=== PATIENT | male | born 1940 | race Caucasian/White ===

== ENCOUNTER 2017-10-04 18:10 | Inpatient (IN) | payer MEDICARE ==
[~2017-10-04] VITALS: Ht 175.3 cm; Wt 127.5 kg
[2017-10-04] MEDS ORDERED: Sodium Chloride 500ML 500 ML IV ONE ×2 (18:29→20:15)
[2017-10-04] MEDS ORDERED: Metoprolol 5mg/5ml Inj IVP ONE ×2 (18:30→20:00)
[2017-10-04] MEDS ORDERED: Morphine Sulfate 2mg/ml Inj(IV/IM USE ONLY) IVP ONE (18:30)
[2017-10-04 18:49] VITALS: BP 91/60
[2017-10-04 19:34] LABS: BASOPHILS % (AUTO) 1.4 % (0.0-2.0); EOSINOPHILS % (AUTO) 0.1 % (0.0-3.0); HEMATOCRIT 46.4 % (42.0-52.0); HEMOGLOBIN 15.3 G/DL (14.2-18.0); LYMPHOCYTES % (AUTO) 7.7 % (20.0-45.0); MEAN CORPUSCULAR VOLUME 92 FL (80-99); MONOCYTES % (AUTO) 6.8 % (1.0-10.0); NEUTROPHILS % (AUTO) 84.1 % (45.0-75.0); PLATELET COUNT 217 K/UL (150-450); RED BLOOD COUNT 5.03 M/UL (4.70-6.10); RED CELL DISTRIBUTION WIDTH 13.2 % (11.6-14.8); WHITE BLOOD COUNT 15.7 K/UL (4.8-10.8)
[2017-10-04 19:48] LABS: ANION GAP 12 mmol/L (5-15); BLOOD UREA NITROGEN 52 mg/dL (7-18); CALCIUM 9.8 MG/DL (8.5-10.1); CARBON DIOXIDE 23 MMOL/L (21-32); CHLORIDE 101 MMOL/L (98-107); CREATININE 1.4 MG/DL (0.55-1.30); POTASSIUM 5.3 MMOL/L (3.5-5.1); SODIUM 136 MMOL/L (136-145)
[2017-10-04 19:49] LABS: APPEARANCE,URINE SLIGHTLY CLOUDY; BILIRUBIN, URINE NEGATIVE (NEGATIVE); GLUCOSE, URINE (UA) NEGATIVE (NEGATIVE); KETONES,URINE 3+ (NEGATIVE); LEUKOCYTE ESTERASE ,URINE 1+ (NEGATIVE); NITRITE,URINE NEGATIVE (NEGATIVE); PH,URINE 5 (4.5-8.0); PROTEIN,URINE 2+ (NEGATIVE); UROBILINOGEN,URINE 1 MG/DL (0.0-1.0)
[2017-10-04 19:50] VITALS: BP 106/81
[2017-10-04 19:50] LABS: COLOR,URINE YELLOW
[2017-10-04] MEDS ORDERED: Morphine Sulfate 4mg/ml Inj (IV USE ONLY) IVP ONE (20:00)
[2017-10-04 20:02] LABS: ALANINE AMINOTRANSFERASE 26 U/L (12-78); ALKALINE PHOSPHATASE 322 U/L (46-116); ASPARTATE AMINO TRANSFERASE 47 U/L (15-37); BILIRUBIN,TOTAL 0.9 MG/DL (0.2-1.0); CKMB 0.6 NG/ML (0.0-3.6); CREATINE KINASE 31 U/L (26-308)
[2017-10-04 20:26] LABS: ALBUMIN 2.4 G/DL (3.4-5.0)
--- NOTE | 2017-10-04 20:46 | Emergency Room Report ---
History of Present Illness General Chief Complaint: Dyspnea/Respdistress Source: EMS Present Illness HPI 77-year-old male presents to ED with shortness of breath. Started today at custodial facility. Upon arrival patient satting 98% on room air. Denies any chest pain. Patient screaming in pain. States he has history of chronic back pain. States pain medications at facility are not helping. Denies any recent fall or trauma. Pain is an 8 out of 10, sharp, nonradiating. Denies fevers or chills. No other aggravating or relieving factors. Denies any other associated symptoms Allergies: Coded Allergies: PENICILLINS (Verified Allergy, Unknown, 10/04/17) Patient History Past Medical History: none Past Surgical History: none Pertinent Family History: none Social History: Denies: smoking, alcohol use, drug use Immunizations: UTD Reviewed Nursing Documentation: PMH: Agreed; PSxH: Agreed Nursing Documentation-PM Past Medical History: No History, Except For Hx Cardiac Problems: Yes - CHF. Prostethic heart valve. Afib Hx Hypertension: Yes - Dysphagia Review of Systems All Other Systems: negative except mentioned in HPI Physical Exam Vital Signs Date Time Temp Pulse Resp B/P (MAP) Pulse Ox O2 Delivery O2 Flow Rate FiO2 10/04/17 17:59 97.1 130 20 133/103 97 Room Air 97.2 Sp02 EP Interpretation: reviewed, normal General Appearance: no apparent distress, alert, GCS 15, non-toxic Head: normocephalic Eyes: bilateral eye normal inspection, bilateral eye PERRL ENT: normal ENT inspection Neck: full range of motion Respiratory: chest non-tender, lungs clear, normal breath sounds, speaking full sentences Cardiovascular #1: no edema, tachycardia Gastrointestinal: normal bowel sounds, non tender, soft, non-distended, no guarding, no rebound Rectal: deferred Genitourinary: no CVA tenderness Musculoskeletal: normal inspection Neurologic: alert, oriented x3, responsive, motor strength/tone normal, sensory intact, speech normal Psychiatric: normal inspection Skin: normal inspection Lymphatic: normal inspection Procedures Critical Care Time Critical Care Time i. I feel this is a highly complex case requiring extensive working including EKG/Rhythm strip, Xray/CT/US, Blood/urine lab work, repeat exams while in ED, and administration of strong opiates/narcotics for pain control, admission to hospital or close patient follow up. Total time: 30 min bedside evaluation and treatment excludes procedures (EKG). Reason for critical care: SOB. afib with RVR Possible complications: hypotension, hypertension, MD, shock, arrhythmias, metabolic acidosis, end organ damage, respiratory failure. Interventions: labs, IVFS, EKG, CXR. lopressor x 2. lopressor. Course: Patient presenting with shortness of breath. History of A. fib. CHF. EKG shows A. fib with RVR. Given Lopressor 2 . Given IV fluids. UA shows positive bacteria. Troponin negative. BNP elevated. Potassium 5.3. Given antibiotics. Consultations: nursing staff, EMS, family Performed by: Dr Olsen Tolerated well condition = serious j. because of unstable vital signs this patient had a condition that could potentially threaten life or limb. I feel this is a critical patient who required my full attention while patient was considered critical. Total Critical Care Time excluding procedures was greater than 35 minutes Medical Decision Making Diagnostic Impression: Primary Impression: Dyspnea Qualified Codes: R06.00 - Dyspnea, unspecified Additional Impressions: Atrial fibrillation with RVR Renal insufficiency ER Course Hospital Course 77-year-old M presents ED complaining of SOB, back pain Differential diagnoses include: MD/unstable angina, contusion, muscle strain, PTX, rib fracture, pneumonia, Clinical course Patient placed on stretcher. on monitor tech which shows A. fib with RVR. lopressor x 2 given with cardioversion. After initial history and physical I ordered labs, EKG, chest x-ray, IVFS labs reviewed- noted leukocytosis, hemoglobin/hematocrit ok, K 5.3, Cr 1.4, trop 0.00, BNP elevated, UA + bacteria Chest x-ray- cardiomegaly. no acute process EKG - afib with RVR Levaquin given, IVFs given. Case discussed with Dr. Mendoza and he agreed to accept the patient to his service for further care and support I. I feel this is a highly complex case requiring extensive working including EKG/Rhythm strip, Xray/CT/US, Blood/urine lab work, repeat exams while in ED, and administration of strong opiates/narcotics for pain control, admission to hospital or close patient follow up. Diagnosis - dyspnea, afib with RVR, renal insuffiency admitted to telemetry in serious condition Labs Test 10/04/17 19:20 White Blood Count 15.7 K/UL (4.8-10.8) Red Blood Count 5.03 M/UL (4.70-6.10) Hemoglobin 15.3 G/DL (14.2-18.0) Hematocrit 46.4 % (42.0-52.0) Mean Corpuscular Volume 92 FL (80-99) Mean Corpuscular Hemoglobin 30.4 PG (27.0-31.0) Mean Corpuscular Hemoglobin Concent 33.0 G/DL (32.0-36.0) Red Cell Distribution Width 13.2 % (11.6-14.8) Platelet Count 217 K/UL (150-450) Mean Platelet Volume 7.1 FL (6.5-10.1) Neutrophils (%) (Auto) 84.1 % (45.0-75.0) Lymphocytes (%) (Auto) 7.7 % (20.0-45.0) Monocytes (%) (Auto) 6.8 % (1.0-10.0) Eosinophils (%) (Auto) 0.1 % (0.0-3.0) Basophils (%) (Auto) 1.4 % (0.0-2.0) Urine Color Yellow Urine Appearance Slightly cloudy Urine pH 5 (4.5-8.0) Urine Specific [place] 1.010 (1.005-1.035) Urine Protein 2+ (NEGATIVE) Urine Glucose (UA) Negative (NEGATIVE) Urine Ketones 3+ (NEGATIVE) Urine Occult Blood 5+ (NEGATIVE) Urine Nitrite Negative (NEGATIVE) Urine Bilirubin Negative (NEGATIVE) Urine Urobilinogen 1 MG/DL (0.0-1.0) Urine Leukocyte Esterase 1+ (NEGATIVE) Urine RBC 30-40 /HPF (0 - 0) Urine WBC 2-4 /HPF (0 - 0) Urine Squamous Epithelial Cells Few /LPF (NONE/OCC) Urine Bacteria Few /HPF (NONE) Sodium Level 136 MMOL/L (136-145) Potassium Level 5.3 MMOL/L (3.5-5.1) Chloride Level 101 MMOL/L (98-107) Carbon Dioxide Level 23 MMOL/L (21-32) Anion Gap 12 mmol/L (5-15) Blood Urea Nitrogen 52 mg/dL (7-18) Creatinine 1.4 MG/DL (0.55-1.30) Estimat Glomerular Filtration Rate mL/min (>60) Glucose Level 135 MG/DL (74-106) Calcium Level 9.8 MG/DL (8.5-10.1) Total Bilirubin 0.9 MG/DL (0.2-1.0) Aspartate Amino Transf (AST/SGOT) 47 U/L (15-37) Alanine Aminotransferase (ALT/SGPT) 26 U/L (12-78) Alkaline Phosphatase 322 U/L (46-116) Total Creatine Kinase 31 U/L (26-308) Creatine Kinase MB 0.6 NG/ML (0.0-3.6) Creatine Kinase MB Relative Index 1.9 Troponin I 0.000 ng/mL (0.000-0.056) Pro-B-Type Natriuretic Peptide 2586 pg/mL (0-125) Total Protein 8.2 G/DL (6.4-8.2) Albumin 2.4 G/DL (3.4-5.0) Globulin 5.8 g/dL EKG Diagnostic Results Rate: tachycardiac Rhythm: other - afib with RVR ST Segments: no acute changes ASA given to the pt in ED: No Rhythm Strip Diag. Results EP Interpretation: yes Rhythm: no PVC's, no ectopy Chest X-Ray Diagnostic Results Chest X-Ray Diagnostic Results : Chest X-Ray Ordered: Yes # of Views/Limited/Complete: 1 View Indication: Shortness of Breath EP Interpretation: Yes Interpretation: no consolidation, no effusion, no pneumothorax, other - cardiomegaly. sternotomy wires Impression: Other Electronically Signed by: Electronically signed by Sergei Olsen MD Last Vital Signs Date Time Temp Pulse Resp B/P (MAP) Pulse Ox O2 Delivery O2 Flow Rate FiO2 10/04/17 20:07 125 106/81 10/04/17 20:07 97.1 10/04/17 19:50 29 98 Room Air Status: improved Disposition: ADMITTED INPATIENT Condition: Serious Referrals: Jamin Mendoza MD (PCP) Sergei Olsen MD Oct 04, 2017 20:46
[2017-10-04 20:50] VITALS: BP 117/81
[2017-10-04] MEDS ORDERED: LIDOCAINE700 M1 TP (21:01)
[2017-10-04] MEDS ORDERED: MIRALAX17 G2 ORAL (21:01)
[2017-10-04] MEDS ORDERED: METOPROLOL TART50 M1 ORAL (21:01)
[2017-10-04] MEDS ORDERED: FUROSEMIDE40 MG ORAL (21:01)
[2017-10-04] MEDS ORDERED: TRAMADOL HCL E100 MG ORAL (21:01)
[2017-10-04] MEDS ORDERED: VITAMIN C500 M1 ORAL (21:01)
[2017-10-04] MEDS ORDERED: SENNA8.6 M2 PO (21:01)
[2017-10-04] MEDS ORDERED: TAMSULOSIN HCL0.4 MG ORAL (21:01)
[2017-10-04] MEDS ORDERED: ASPIR 8181 MG ORAL (21:01)
[2017-10-04] MEDS ORDERED: LIPITOR40 MG ORAL (21:01)
[2017-10-04] MEDS ORDERED: ALDACTONE25 MG ORAL (21:01)
[2017-10-04 21:41] VITALS: BP 106/88
[2017-10-04] MEDS ORDERED: Hydromorphone 0.5mg/0.5ml inj IVP PRN (21:45)
[2017-10-04 21:50] VITALS: BP 89/51
[2017-10-04] MEDS ORDERED: dilTIAZem HCl 25mg/5ml Inj IVP SCH (23:27)
[2017-10-04] MEDS ORDERED: Metoprolol Tartrate 50mg tab ORAL SCH (23:30)
[2017-10-05] VITALS: BP 86/50
[2017-10-05] MEDS: Tamsulosin 0.4mg cap ORAL SCH ×2 (00:11→20:33)
[2017-10-05] MEDS: Atorvastatin 80mg tab ORAL SCH ×2 (00:11→20:33)
[2017-10-05] MEDS: Spironolactone 25mg tab ORAL SCH ×3 (00:12→16:58)
--- NOTE | 2017-10-05 00:30 | Consultation ---
DATE OF CONSULTATION: 10/04/2017 CARDIOLOGY CONSULTATION CONSULTING PHYSICIAN: Brijesh Vela M.D. REASON FOR CONSULTATION: Atrial fibrillation with rapid ventricular response. HISTORY: This is a 77-year-old male who resides at a [facility] facility. He developed shortness of breath this morning and congestion subsequently with no chest pain. He noted severe back pain and was not relieved with his usual medications. The patient has not had cough, congestion, fevers, or chills. He has not had nausea or vomiting. No chest pain is noted. PAST MEDICAL HISTORY: Includes hypertension, paroxysmal atrial fibrillation, prosthetic aortic valve, hx of bariatric surgery, degenerative disc disease. ALLERGIES: Penicillin. MEDICATIONS: Reviewed and reconciled. FAMILY HISTORY: Noncontributory. SOCIAL HISTORY: No record of smoking, alcohol, or substance abuse. He is visiting from his [facility] home in [place]. REVIEW OF SYSTEMS: A 10-point review of systems performed. All systems negative other than outlined above. PHYSICAL EXAMINATION: VITAL SIGNS: Initially in the emergency room, oxygen saturation on room air 97%, afebrile, blood pressure 133/103, pulse 130, respiratory rate 20. Presently, blood pressure 119/74, pulse 145, respiratory rate 29, afebrile. HEENT: Normocephalic and atraumatic. HEENT: Temporal wasting. Pale conjunctivae. Anicteric sclerae. Oropharynx clear. Mucous membranes dry. NECK: Supple. Accessory muscle use not noted. Jugular venous pressure normal. LUNGS: With coarse breath sounds. No wheezing or rales. No focal tenderness over the sternum. CARDIAC: Irregularly irregular. Normal S1, S2. A 1/6 systolic murmur at the base. ABDOMEN: Soft, nontender. EXTREMITIES: Good pulses. No edema. NEUROLOGIC: Reveals symmetric strength. No asterixis. LABORATORY AND DIAGNOSTIC DATA: Chest x-ray, no acute process, cardiomegaly. EKG, atrial fibrillation, rapid ventricular response, and nonspecific ST-T wave changes. Troponin zero. White count 15.7, hemoglobin 15.3. Sodium 136, potassium 5.3, bicarbonate 23, BUN 52, creatinine 1.4. Urinalysis, 30-40 red cells and 2 to 4 white cells. Pro-natriuretic peptide 2586. Albumin 2.4. IMPRESSION: 1. Acute on chronic diastolic congestive heart failure. 2. Paroxysmal atrial fibrillation with rapid ventricular response. 3. Prerenal azotemia. 4. Urinary tract infection. 5. Acute on chronic kidney injury. 6. Valvular heart disease. PLAN: 1. Cardiac monitoring. 2. Empiric antibiotics. 3. Rate control with IV beta-beckie and subsequent oral dosing. 4. Diuresis. 5. Echocardiogram. 6. Consider full anticoagulation for cardioembolic prophylaxis if no bleeding risk was thought to be present. Brijesh Vela M.D. DR: Manas JOB#: [id number] CC: FAITH
[2017-10-05] MEDS: Vancomycin 750mg/NS 250ml IVPB SCH ×2 (00:49→12:05)
[2017-10-05] MEDS: Enoxaparin 60mg Inj SUBQ SCH ×3 (00:50→20:35)
[2017-10-05 04:00] VITALS: BP 123/61
[2017-10-05 07:21] LABS: EOSINOPHILS % (AUTO) 0.4 % (0.0-3.0); HEMATOCRIT 44.1 % (42.0-52.0); HEMOGLOBIN 14.4 G/DL (14.2-18.0); LYMPHOCYTES % (AUTO) 7.1 % (20.0-45.0); MEAN CORPUSCULAR VOLUME 94 FL (80-99); MONOCYTES % (AUTO) 9.2 % (1.0-10.0); NEUTROPHILS % (AUTO) 82.3 % (45.0-75.0); PLATELET COUNT 203 K/UL (150-450); RED BLOOD COUNT 4.72 M/UL (4.70-6.10); RED CELL DISTRIBUTION WIDTH 13.1 % (11.6-14.8); WHITE BLOOD COUNT 14.5 K/UL (4.8-10.8)
[2017-10-05 07:42] LABS: ALANINE AMINOTRANSFERASE 23 U/L (12-78); ALBUMIN/GLOBULIN RATIO 0.4 (1.0-2.7); ALKALINE PHOSPHATASE 277 U/L (46-116); ANION GAP 8 mmol/L (5-15); ASPARTATE AMINO TRANSFERASE 35 U/L (15-37); BILIRUBIN,TOTAL 0.7 MG/DL (0.2-1.0); BLOOD UREA NITROGEN 46 mg/dL (7-18); CALCIUM 9.3 MG/DL (8.5-10.1); CARBON DIOXIDE 26 MMOL/L (21-32); CHLORIDE 106 MMOL/L (98-107); CREATININE 1.2 MG/DL (0.55-1.30); SODIUM 140 MMOL/L (136-145)
[2017-10-05 08:00] VITALS: BP 96/52
[2017-10-05] MEDS: Furosemide 40mg tab ORAL SCH ×2 (08:50→16:58)
[2017-10-05] MEDS ORDERED: Metoprolol Tartrate 50mg tab ORAL SCH (09:00)
[2017-10-05] MEDS ORDERED: Sennosides 8.6mg ORAL SCH (09:00)
[2017-10-05] MEDS ORDERED: Ascorbic Acid 500mg tab ORAL SCH (09:00)
[2017-10-05] MEDS ORDERED: Miralax 17gm pkt ORAL SCH (09:00)
[2017-10-05] MEDS ORDERED: Aspirin EC 81mg tab ORAL SCH (09:00)
[2017-10-05] MEDS ORDERED: Cefepime HCl 1 GM in D5W 110 ML IVPB SCH ×2 (09:00→12:00)
--- NOTE | 2017-10-05 09:45 | History and Physical Report ---
DATE OF ADMISSION: 10/04/2017 CHIEF COMPLAINT: AFib with RVR, severe intractable back pain. HISTORY OF PRESENT ILLNESS: The patient is a 77-year-old male. He has history of morbid obesity, hypertension, paroxysmal AFib. He has prior history of a porcine bioprosthetic aortic valve replacement. He was transferred from a group home facility with complaints of shortness of breath. He was noted to be in AFib with RVR in the emergency room. After several doses of metoprolol, heart rate was better controlled. Laboratory workup there was significant for white count of 15,000. He has had a persistent leukocytosis at the emergency room without any clear obvious source of infection. The patient otherwise without complaints. He denies any fever or chills. He has no dysuria or diarrhea. PAST MEDICAL HISTORY: As above. PAST SURGICAL HISTORY: As above. CURRENT MEDICATIONS: Reconciled and reviewed. ALLERGIES: Include penicillin. FAMILY HISTORY: Noncontributory. SOCIAL HISTORY: There is no known history of tobacco, ethanol, or drugs. REVIEW OF SYSTEMS: GENERAL: No fever or chills. HEENT: No headaches or visual changes. CARDIOPULMONARY: No chest pain. Positive shortness of breath. GASTROINTESTINAL: No nausea or vomiting. GENITOURINARY: No urgency or frequency. MUSCULOSKELETAL: Positive lower back pain. NEUROLOGIC: No history of seizures. PHYSICAL EXAMINATION: VITAL SIGNS: Temperature 97.4, pulse 87, respirations 20, and blood pressure 123/61. GENERAL: The patient is a well-developed male, in no apparent distress. He is awake, alert, oriented x4. NECK: Supple. There is no jugular venous distention. HEART: Irregularly irregular. LUNGS: Clear. ABDOMEN: Soft, nontender, nondistended. EXTREMITIES: Without clubbing, cyanosis, or edema. LABORATORY DATA: Sodium 136, potassium 5.3, chloride 101, bicarbonate 23, BUN 52, creatinine 1.4. Troponin was zero. BNP was 2500. Urine showed 2 to 4 wbc's, 30 to 40 rbc's. Chest x-ray results are currently pending. ASSESSMENT: This is a 77-year-old male admitted with complaints of AFib with RVR, leukocytosis of unclear etiology, and severe intractable back pain. He has history of hypertension, bioprosthetic aortic valve replacement. PLAN: Cardiology consultation. Continue rate control with beta-blockade. Check blood cultures x2. Check an echo to rule out endocarditis. CT of the lumbar and thoracic spine will also be obtained and Infectious Disease consultation regarding workup for the patient's leukocytosis. We will also check a venous duplex of the lower extremities. Jamin Mendoza M.D. DR: Mackenzie JOB#: [id number] CC:
--- NOTE | 2017-10-05 11:31 | Diagnostic Imaging Report ---
Indications: Severe intractable back pain Technique: Spiral acquisitions obtained through the lumbar spine. Multiplanar reconstructions were generated. No IV contrast utilized. Total dose length product 1094.06 mGycm. CTDIvol(s) 32.81 mGy. Dose reduction achieved using automated exposure control Comparison: none Findings: There is evidence of destruction of the inferior endplate and anterior inferior corner of the L2 vertebral body. There is endplate collapse and some destruction of the inferior endplate of the L3 vertebral body, as well as some destructive changes of the anterior superior corner. No definite height loss. The posterior elements appear to be preserved. There is posterior disc protrusion at this level, which in combination with bilateral facet arthrosis results in borderline narrowing of the spinal canal. The neural foramina are preserved. No definite evidence of extension of the disc/vertebral body process into the spinal canal, although evaluation for such is limited on noncontrast CT. There is some focal expansion of the disc and residual calcifications around the vertebral body into the adjacent soft tissues. Also noted is [id number] apposition of the L2 and L3 spinous processes. The remaining vertebral body heights are preserved. No other osteolytic process demonstrated. No acute fractures. No dislocations. The bony alignment is normal. There is an osteosclerotic lesion in the T12 spinous process. At L1-2, there is mild degenerative disc narrowing. There is circumferential annular bulge which results in mild stenosis of the spinal canal. The neural foramina are mild to moderately narrowed bilaterally. There is bilateral facet arthrosis. At L3-4, there is circumferential annular bulge as well as broad-based posterior disc protrusion, disc protruding as much as 5 mm beyond the posterior margin of the vertebral body. This, in combination with bilateral facet arthrosis and ligamentum flavum hypertrophy, results in moderate narrowing of the spinal canal. There is also moderate to severe bilateral neural foraminal stenosis due to the bulging disc and facet hypertrophy. There is also bone on bone apposition of the spinous processes. There is mild degenerative disc narrowing At L4-5, there is mild circumferential annular bulge as well as broad-based posterior central disc protrusion, disc protruding by as much as 5 mm. This does not appear to significantly narrow the spinal canal, however. There is mild narrowing of the bilateral neural foramina by the bulging disc and due to bilateral facet arthrosis. No significant disc space narrowing. At L5-S1, there is degenerative disc narrowing and vacuum formation. There are posterior osteophytes which do not significantly narrow the spinal canal. There is bilateral facet arthrosis which, in combination with posterior osteophytes, result in moderate to severe narrowing of the bilateral neural foramina. Incidentally noted is a 10 cm right lower pole renal cyst as well as multiple other right renal cysts. Impression: Destructive changes of the inferior L2 and superior L3 endplate and adjacent portions of the vertebral body. This is worrisome for infectious spondylodiscitis. Recommend contrast MRI for more specific characterization Other multilevel degenerative changes as detailed on a level by level basis above Incidental finding of 10 cm right lower pole renal cyst as well as multiple other right renal cysts Findings discussed by phone with Dr. Mendoza at the time of interpretation The CT scanner at [facility] is accredited by the [employer] and the scans are performed using protocols designed to limit radiation exposure to as low as reasonably achievable to attain images of sufficient resolution adequate for diagnostic evaluation.
--- NOTE | 2017-10-05 11:38 | Diagnostic Imaging Report ---
Indication: Severe intractable back pain Technique: Spiral acquisitions obtained through the thoracic spine. No IV contrast utilized. Multiplanar reconstructions were generated. Total dose length product 1520.58 mGycm. CTDIvol(s) 37.38 mGy. Dose reduction achieved using automated exposure control Comparison: none Findings: Bony alignment is normal. Vertebral body heights are preserved. Disc spaces are preserved. There are multilevel degenerative proliferative changes of the lower thoracic spine with bridging osteophytes extending from T6 through L1. There is a 4 mm lucency within the T2 vertebral body which is fairly low in attenuation, most likely a small benign hemangioma. No acute fractures. No dislocations. No significant disc bulge or protrusion or spinal stenosis demonstrated. There is multilevel mild neural foraminal stenosis due to facet arthrosis. Destructive changes about the L2-3 disc are noted, discussed on separate MRI lumbar spine report There is evidence of prior cardiac valve repair. There are median sternotomy sutures The included extraspinal soft tissues are remarkable for the presence of basilar pulmonary parenchymal atelectatic changes. Impression: No acute thoracic spine abnormality Destructive changes at L2-3. Please refer to separate lumbar spine report Mild degenerative changes as described, with multilevel mild neural foraminal stenoses Evidence of prior cardiac surgery The CT scanner at [facility] is accredited by the [employer] and the scans are performed using protocols designed to limit radiation exposure to as low as reasonably achievable to attain images of sufficient resolution adequate for diagnostic evaluation.
--- NOTE | 2017-10-05 11:48 | Diagnostic Imaging Report ---
. Indication: Reason For Exam: SOB Technique: One view of the chest Comparison: none Findings: The left hemidiaphragm is elevated. There is atelectasis at the left lung base. There may be some pleural fluid at the left lung base as well. The right lung and pleural space, left upper lobe are clear. The heart is upper limits normal in size. There are median sternotomy sutures and prosthetic aortic and mitral valves. Impression: Left basilar atelectasis. Possible small left pleural effusion No acute process otherwise
[2017-10-05 12:00] VITALS: BP 101/60
[2017-10-05] MEDS ORDERED: Gadavist 7.5mMol/7.5ml vial IV PRN (13:15)
[2017-10-05 16:00] VITALS: BP 112/83
--- NOTE | 2017-10-05 16:15 | Consultation ---
DATE OF CONSULTATION: 10/05/2017 INFECTIOUS DISEASES CONSULTATION CONSULTING PHYSICIAN: Antonia Chaidez M.D. REFERRING PHYSICIAN: Jamin Mendoza M.D. REASON FOR CONSULTATION: Leukocytosis. HISTORY OF PRESENTING ILLNESS: This is a 77-year-old gentleman with history of hypertension, obesity, atrial fibrillation along with a history of prostatic aortic valve replacement, who comes from a [facility] facility with shortness of breath and back pain. He was found to be in atrial fibrillation with rapid ventricular rate and a leukocytosis. An Infectious Diseases consultation has been obtained for antibiotics. PAST MEDICAL HISTORY: 1. History of hypertension. 2. Obesity. 3. Atrial fibrillation. 4. Status post atrial valve replacement. MEDICATIONS: As an inpatient, he is on gadobutrol, cefepime, ascorbic acid, aspirin, Lasix, MiraLAX, Senokot, intravenous vancomycin, metoprolol, enoxaparin, Aldactone, Flomax, atorvastatin, Dilaudid, Zofran, and Restoril. ALLERGIES: To penicillin noted. SOCIAL HISTORY: He does not smoke, drink, or use drugs. FAMILY HISTORY: Noncontributory. REVIEW OF SYSTEMS: RESPIRATORY: No fever, chills, cough, or chest pain. He does have shortness of breath. CARDIAC: No chest pain. No palpitation. No dizziness. No syncope. GASTROINTESTINAL: No nausea. No vomiting. No abdominal pain. MUSCULOSKELETAL: He complains of back pain. PHYSICAL EXAMINATION: VITAL SIGNS: Temperature of 97.5, T-max of 97.8, pulse of 107, respiratory rate of 18, blood pressure 96/52, and O2 saturation of 96%. HEENT: Pupils equally reactive to light and accommodation. Mouth appears clean without thrush. NECK: Supple. No adenopathy. No JVD. CARDIOVASCULAR: Regular rate and rhythm. No murmurs. LUNGS: Clear to auscultation bilaterally. No crackles. No wheezes. ABDOMEN: Soft and nontender. No organomegaly. EXTREMITIES: No cyanosis, no clubbing, no edema. LABORATORY AND DIAGNOSTIC DATA: White count of 15.7 yesterday, white count of 14.5 today, hemoglobin 14.4, hematocrit 44.1, MCV 94, platelet count of 203,000, and neutrophils of 82%. Sodium 140, potassium 5, chloride 106, bicarb 26, BUN 46, creatinine 1.2, glucose 105, and calcium 9.3. Total bilirubin 0.7. AST 35, ALT 23, and alkaline phosphatase 277. Total protein 7.4. Albumin of 2. UA is showing 2 to 4 white cells. Chest x-ray is still showing left base atelectasis, possible small left-sided pleural effusion. On 10/05/2017, CT of the L-spine is showing destructive changes of the inferior L2 and L3 endplate, worrisome for spondylodiscitis, multi-level degenerative joint disease noted, and renal cysts noted. CT of the T-spine is showing destructive changes at the L2-L3, mild degenerative joint disease noted, and multilevel mild neural foraminal stenosis noted. ASSESSMENT: This is a 77-year-old gentleman with history of hypertension, obesity, and atrial fibrillation, who comes in with back pain and is found to have leukocytosis. 1. L2-L3 diskitis. 2. Hypertension. 3. Atrial fibrillation. PLAN: 1. Agree with IV vancomycin and cefepime. 2. We would suggest a spine surgery evaluation. 3. We will follow up cultures. I would like to thank, Dr. Mendoza for this consultation. Antonia Chaidez M.D. DR: NU JOB#: [id number] CC: Jamin Mendoza M.D.
--- NOTE | 2017-10-05 17:06 | Diagnostic Imaging Report ---
Indication: Reason For Exam: INFECT Technique: Sagittal T1, sagittal T2 PROPELLER, sagittal STIR PROPELLER, axial T2 FRFSE, axial T1 FLAIR PROPELLER axial T2 FRFSE, axial T2 PROPELLER discitis, pre and postcontrast axial and sagittal T1 FSE fat saturated images Comparison: Reference made to CT lumbar spine of earlier the same day Findings: Largest discrete area of fluid occupies the disc space at L2-3, and extends into the inferior and superior endplates. A rim of sclerosis in the inferior L2 and superior L3 surrounds this collection, but there is diffuse edema of the L2 and L3 vertebral bodies. There is diffuse enhancement of the L2 and L3 vertebral bodies. Enhancement also extends into the paraspinous soft tissues, extending into the adjacent psoas musculature and the very slight extent the soft tissues lateral to the posterior elements. No focal epidural or other collection to suggest abscess demonstrated. There is mild posterior disc bulge at L2-3, which does not significantly compromise the spinal canal. There is mild compromise of the bilateral neural foramina. Within the sacrum and bilateral iliac wings, multiple foci of high T1 and high T2 signal which fat suppressed are demonstrated. Scattered similar lesions are seen in L4 and L5 A hemangioma is seen in the T12 vertebral body. Vertebral body heights are preserved. The bony alignment is normal. At T12-L1, no significant disc bulge or protrusion, spinal stenosis, or neural foraminal stenosis. At L1-2, there is circumferential annular bulge. This results in borderline narrowing of the spinal canal. This and facet hypertrophy results in moderate moderate neural foraminal narrowing, although the perineural fat is appear to be preserved. There is mild degenerative disc narrowing at this level. At L3-4, there is circumferential annular bulge as well as broad-based central posterior disc protrusion. This results in moderate spinal canal stenosis. There is mild narrowing the bilateral neural foramina. High intensity zone is seen at the posterior border of the disc. The disc space is preserved At L4-5, there is minimal degenerative disc narrowing. There is broad-based posterior disc protrusion centrally, with a high intensity zone. No significant spinal stenosis or neural foraminal narrowing. At L5-S1, there is mild to moderate degenerative disc narrowing. There is circumferential annular bulge, as well as broad-based central, right subarticular, and right foraminal disc protrusion. This results in mild to moderate compromise of the right neural foramen. The disc bulge also results in moderate narrowing of the left neural foramen, exacerbated by facet arthrosis. No other abnormal contrast enhancement is demonstrated. Impression: Irregular fluid collection occupying essentially entirety of the L2-L3 disc, extending into the adjacent endplates, with subjacent sclerosis, edema of the L2 and L3 vertebral bodies, and marked enhancement. Edema and enhancement of the soft tissues immediately surrounding the disc and adjacent vertebral bodies. Findings are compatible with discitis and osteomyelitis, and are concordant with findings reported on recent CT scan. No evidence of epidural or paraspinous abscess and no evidence of significant neural compromise at this level. Other multilevel degenerative changes, as detailed on a level by level basis above The T1 and T2 signal, consistent with focal fatty deposits, are seen scattered throughout the sacrum and bilateral iliac wings, to a lesser extent at L4 and L5. This most likely represents focal fatty metaplasia
[2017-10-05 20:00] VITALS: BP 116/52
--- NOTE | 2017-10-05 20:00 | Progress Note ---
DATE: 10/05/2017 CARDIOLOGY PROGRESS NOTE SUBJECTIVE: The patient continues to have some shortness of breath. No chest pain. Monitored rhythm is atrial fibrillation. The patient states that he was on warfarin many many years ago and that was discontinued prior to him moving here. He was recently hospitalized at [facility], those records are being requested. He states that they decided not to treat him with anticoagulation during that hospital stay as well. PHYSICAL EXAMINATION: GENERAL: Moderately obese. VITAL SIGNS: Blood pressure ranging from 86/50 to 123/61, heart rate 82 to 118 and respiratory 18 to 20. The patient is afebrile. NECK: Jugular venous pressure difficult to assess. LUNGS: With diminished breath sounds. CARDIAC: Irregularly irregular. Normal S1 and S2 with a 1/6 systolic murmur at the base. ABDOMEN: Obese and soft. EXTREMITIES: With trace edema. LABORATORY AND DIAGNOSTIC DATA: Chest x-ray revealed left basilar atelectasis with small pleural effusion. MRI scans of the spine are in process. White count 14 and hemoglobin 14. Sodium 140, potassium 5, bicarbonate 26, BUN 46, and creatinine 1.2. Albumin 2. IMPRESSION: 1. Paroxysmal atrial fibrillation with rapid ventricular response, now with improving rate control. 2. Leukocytosis, rule out an occult infection. 3. Status post bioprosthetic aortic valve replacement. 4. Intractable back pain. 5. Hypertensive heart disease. 6. Acute on chronic diastolic congestive heart failure. 7. Left basilar atelectasis with small pleural effusion. PLAN: 1. Titrate beta-beckie. 2. Antibiotics per Infectious Disease apartment leasing consultant. 3. Review echocardiogram. 4. Continue anticoagulation. 5. Review records from prior hospitalization. 6. Diuresis based on clinical parameters. Brijesh Vela M.D. : BEKA JOB#: [id number] CC:
[2017-10-06] VITALS (30 sets, daily range): BP systolic 95–132; BP diastolic 49–87
[2017-10-06] MEDS: Vancomycin 750mg/NS 250ml IVPB SCH (00:11)
[2017-10-06] MEDS ORDERED: Amiodarone 150mg/ml 3ml Amp ONE ×2 (05:00→05:02)
[2017-10-06] MEDS ORDERED: Amiodarone 900 MG in D5W 500ml 482 ML IV SCH ×2 (05:15→07:45)
--- NOTE | 2017-10-06 05:51 | Emergency Room Report ---
History of Present Illness General Chief Complaint: Dyspnea/Respdistress Source: Medical Record, EMS Present Illness HPI This is 77-year-old male who was admitted to telemetry for atrial fibrillation. I responded to a CODE BLUE. Per nursing staff, he became unresponsive and had no pulse. On my arrival, CPR was in progress. There was no pulse. He received 1 dose of epinephrine already. After that, on the monitor he showed a fine V. fib rhythm. I defibrillated him at 200 J. He responded with a pulse and sinus rhythm. I didn't intubate the patient. Shortly after that, he lost his pulse and CPR was in progress again. He received another dose of epinephrine. He also went into V. fib again. He was defibrillated again with 200 J. This corresponded with return of pulse. Bolus of amiodarone was given. A central line was placed an order amiodarone drip. Patient was sent to the ICU. Allergies: Coded Allergies: PENICILLINS (Verified Allergy, Unknown, 10/04/17) Patient History Past Medical History: see triage record, old chart reviewed Past Surgical History: other Pertinent Family History: none Social History: Denies: smoking Immunizations: other Reviewed Nursing Documentation: PMH: Agreed; PSxH: Agreed Nursing Documentation-PMH Past Medical History: No History, Except For Hx Cardiac Problems: Yes - CHF, Prostethic heart valve, Afib, Hyperlipidemia Hx Hypertension: Yes - Dysphagia Hx Cancer: No Hx Gastrointestinal Problems: No Hx Neurological Problems: No Review of Systems Respiratory: Reports: shortness of breath Cardiovascular: Reports: chest pain All Other Systems: limited - Secondary to patient condition Physical Exam Vital Signs Date Time Temp Pulse Resp B/P (MAP) Pulse Ox O2 Delivery O2 Flow Rate FiO2 10/04/17 17:59 97.1 130 20 133/103 97 Room Air 97.2 10/06/17 04:55 100 General Appearance: other - Unresponsive. CPR in progress. [id number]. Eyes: bilateral eye PERRL ENT: normal ENT inspection, normal pharynx Neck: full range of motion Respiratory: other - No respiration without [id number] Cardiovascular #1: other - No pulse without CPR Gastrointestinal: soft, no mass Genitourinary: normal inspection Musculoskeletal: back normal Neurologic: other - Unresponsive Skin: normal color Procedures Critical Care Time Critical Care Time Critical care is mandated in this patient who presented with cardiac arrest. Patient require my urgent intervention to attenuate the risks of metabolic collapse which may lead to cardiovascular collapse and . Critical care time is 35 minutes excluding any reportable procedure. Critical care time included evaluation, multiple reevaluation, looking at old charts, interpreting laboratory and diagnostic data, discussing case with patient and family and consultants, and charting. Central Line Central Line : Consent: Emergent Central Line Lumen: triple Maximal Sterile Barrier Tech: yes cap, yes mask, yes sterile gloves, yes large sterile sheet, yes chlorhexidine prep No Max Barrier Tech Because: emergency insertion Central Line Postion: femoral (R) Complications: none Central Line Post Position: sutured, good blood return Attempts: One Patient Tolerated: Well Complications: None CPR/Code Blue CPR/Code Blue Narrative please see code sheet for Full information. Patient received 2 doses of epi. Amiodarone bolus and 2 defibrillations. Intubation Intubation : Consent: Emergent Intubation Method: orotracheal Tube Size (cm): 7.5 Breath Sounds after Intubation: equal Intubation Complications: no complications Post Intubation Xray: Yes Progress/Xray Impression: No pneumothorax. Endotracheal tube in good position. LLL effusion Attempts: One Patient Tolerated: Well Complications: None Medical Decision Making Diagnostic Impression: Primary Impression: Cardiac arrest Additional Impressions: Respiratory failure requiring intubation Ventricular fibrillation ER Course Patient with a cardiac arrest probably secondary to ventricular fibrillation. Pulse obtain after defibrillation. Amiodarone initiated. Patient intubated. Patient an ICU. I discussed the case with Dr. Mendoza. Chest X-Ray Diagnostic Results Chest X-Ray Diagnostic Results : Chest X-Ray Ordered: Yes # of Views/Limited/Complete: 1 View Indication: Shortness of Breath EP Interpretation: Yes Interpretation: no consolidation, no pneumothorax, other - Cardiomegaly. Endotracheal tube in good position. No pneumothorax Impression: Other - s/p intubation Electronically Signed by: Gerhard Garcia MD Last Vital Signs Date Time Temp Pulse Resp B/P (MAP) Pulse Ox O2 Delivery O2 Flow Rate FiO2 10/06/17 04:55 123 15 100 10/06/17 04:00 98.4 109/73 97 Room Air 98.4 Status: improved Disposition: ADMITTED INPATIENT Condition: Critical Referrals: Jamin Mendoza MD (PCP) GERHARD GARCIA M.D. Oct 06, 2017 05:51
[2017-10-06 06:19] LABS: HEMATOCRIT 38.1 % (42.0-52.0); HEMOGLOBIN 12.2 G/DL (14.2-18.0); MEAN CORPUSCULAR VOLUME 94 FL (80-99); PLATELET COUNT 221 K/UL (150-450); RED BLOOD COUNT 4.04 M/UL (4.70-6.10); RED CELL DISTRIBUTION WIDTH 13.7 % (11.6-14.8); WHITE BLOOD COUNT 20.4 K/UL (4.8-10.8)
[2017-10-06 07:03] LABS: ANION GAP 12 mmol/L (5-15); BLOOD UREA NITROGEN 32 mg/dL (7-18); CALCIUM 8.6 MG/DL (8.5-10.1); CARBON DIOXIDE 22 MMOL/L (21-32); CHLORIDE 107 MMOL/L (98-107); CREATININE 1.1 MG/DL (0.55-1.30); POTASSIUM 4.1 MMOL/L (3.5-5.1); SODIUM 141 MMOL/L (136-145)
[2017-10-06] MEDS ORDERED: Gadavist 7.5mMol/7.5ml vial IV PRN (07:40)
--- NOTE | 2017-10-06 08:29 | General Progress Note ---
Assessment/Plan Problem List: (1) Discitis of lumbar region ICD Codes: M46.46 - Discitis, unspecified, lumbar region SNOMED: 562218095 (2) Cardiac arrest ICD Codes: I46.9 - Cardiac arrest, cause unspecified SNOMED: 949433510 (3) Atrial fibrillation with RVR ICD Codes: I48.91 - Unspecified atrial fibrillation SNOMED: 109328243175665 (4) Ventricular fibrillation ICD Codes: I49.01 - Ventricular fibrillation SNOMED: 03235266 (5) Respiratory failure requiring intubation ICD Codes: J96.90 - Respiratory failure, unspecified, unspecified whether with hypoxia or hypercapnia SNOMED: 714319971 Status: other - critical Assessment/Plan vent support follow up labs amiodarone drip iv abx spine consult(called 2 surgeons- unable to see pt) follow up cultures message left with brother to update him on current status Subjective ROS Limited/Unobtainable: No Constitutional: Reports: malaise, weakness HEENT: Reports: no symptoms Cardiovascular: Reports: no symptoms Respiratory: Reports: no symptoms Gastrointestinal/Abdominal: Reports: no symptoms Genitourinary: Reports: no symptoms Neurologic/Psychiatric: Reports: no symptoms Endocrine: Reports: no symptoms Hematologic/Lymphatic: Reports: no symptoms Allergies: Coded Allergies: PENICILLINS (Verified Allergy, Unknown, 10/04/17) All Systems: reviewed and negative except above Subjective events noted. had vfib arrest at 4 this am. cardioverted and intubated. on pressors and amiodarone. opens eyes but dose not track. Objective Last 24 Hour Vital Signs Date Time Temp Pulse Resp B/P (MAP) Pulse Ox O2 Delivery O2 Flow Rate FiO2 10/06/17 08:00 110 20 126/64 99 Mechanical Ventilator 50 10/06/17 07:29 130 16 50 10/06/17 07:00 112/58 10/06/17 06:00 118/67 10/06/17 05:52 50 10/06/17 05:15 80/40 10/06/17 04:55 123 15 100 10/06/17 04:00 98.4 113 20 109/73 97 Room Air 98.4 10/06/17 04:00 137 10/06/17 03:41 98.4 10/06/17 03:11 98.3 10/06/17 03:00 20 122/66 96 10/06/17 00:00 98.3 95 19 118/55 95 Room Air 98.3 10/06/17 00:00 128 10/05/17 20:00 98 10/05/17 20:00 98.4 90 20 116/52 95 Room Air 98.4 10/05/17 16:00 120 10/05/17 16:00 97.8 105 18 112/83 97 Room Air 97.8 10/05/17 12:00 97.7 104 18 101/60 98 Room Air 97.7 10/05/17 12:00 102 Intake and Output 10/05/17 10/06/17 19:00 07:00 Intake Total 240 ml 418.60 ml Output Total 600 ml 170 ml Balance -360 ml 248.60 ml Intake Oral 240 ml IV Total 418.60 ml Output Urine Total 600 ml 170 ml # Bowel Movements 1 Laboratory Tests 10/06/17 05:06: White Blood Count 20.4H, Red Blood Count 4.04L, Hemoglobin 12.2L, Hematocrit 38.1L, Mean Corpuscular Volume 94, Mean Corpuscular Hemoglobin 30.3, Mean Corpuscular Hemoglobin Concent 32.1, Red Cell Distribution Width 13.7, Platelet Count 221, Mean Platelet Volume 7.9, Neutrophils (%) (Auto) , Lymphocytes (%) ( Auto) , Monocytes (%) (Auto) , Eosinophils (%) (Auto) , Basophils (%) (Auto) , Neutrophils % (Manual) [Pending], Lymphocytes % (Manual) [Pending], Platelet Estimate [Pending], Platelet Morphology [Pending], Sodium Level 141, Potassium Level 4.1, Chloride Level 107, Carbon Dioxide Level 22, Anion Gap 12, Blood Urea Nitrogen 32H, Creatinine 1.1, Estimat Glomerular Filtration Rate , Glucose Level 170H, Calcium Level 8.6, Magnesium Level 2.0, Troponin I 1.947H, Pro-B- Type Natriuretic Peptide 2664H 10/06/17 05:40: Arterial Blood pH 7.449, Arterial Blood Partial Pressure CO2 27.8L, Arterial Blood Partial Pressure O2 296.2H, Arterial Blood HCO3 18.8L, Arterial Blood Oxygen Saturation 99.4H, Arterial Blood Base Excess -3.8, Keith Test Positive 10/06/17 08:10: Arterial Blood pH 7.420, Arterial Blood Partial Pressure CO2 36.4, Arterial Blood Partial Pressure O2 127.1H, Arterial Blood HCO3 23.1, Arterial Blood Oxygen Saturation 98.4H, Arterial Blood Base Excess -1.0, Keith Test Positive Height (Feet): 5 Height (Inches): 9.00 Weight (Pounds): 260 General Appearance: WD/WN, confused Neck: supple Cardiovascular: normal rate, regular rhythm Respiratory/Chest: chest wall non-tender, lungs clear, normal breath sounds Abdomen: normal bowel sounds, non tender, soft, no organomegaly Edema: no edema noted Arm (L), no edema noted Arm (R), no edema noted Leg (L), no edema noted Leg (R), no edema noted Pedal (L), no edema noted Pedal (R), no edema noted Generalized Neurologic: unresponsive Jamin Mendoza MD Oct 06, 2017 08:29
[2017-10-06] MEDS: Sennosides 8.6mg ORAL SCH (09:00)
[2017-10-06] MEDS: Metoprolol Tartrate 50mg tab ORAL SCH ×2 (09:00→18:00)
[2017-10-06] MEDS ORDERED: Aspirin EC 81mg tab ORAL SCH (09:00)
[2017-10-06] MEDS ORDERED: Metoprolol Tartrate 50mg tab ORAL SCH (09:00)
[2017-10-06] MEDS: Ascorbic Acid 500mg tab ORAL SCH (09:00)
[2017-10-06] MEDS: Miralax 17gm pkt ORAL SCH (09:00)
[2017-10-06] MEDS ORDERED: Spironolactone 25mg tab ORAL SCH (09:00)
[2017-10-06] MEDS: Enoxaparin 60mg Inj SUBQ SCH ×2 (09:30→21:21)
--- NOTE | 2017-10-06 10:49 | Pulmonolgy Critical Care Note ---
Critical Care - Asmt/Plan Assessment/Plan: 77-year-old male who was initially admitted to telemetry for atrial fibrillation. S/p code blue, per nursing staff, he became unresponsive and had no pulse. s/p Defibrillation defibrillated. This corresponded with return of pulse. Bolus of amiodarone was given and subsequent amiodarone drip. Intubated and ventilated Allergies: Coded Allergies: PENICILLINS (Verified Allergy, Unknown, 10/04/17) Patient History Past Medical History: see triage record, old chart reviewed Past Surgical History: other Pertinent Family History: none Social History: Denies: smoking Immunizations: other Reviewed Nursing Documentation: PMH: Agreed; PSxH: Agreed Nursing Documentation-PMH Past Medical History: No History, Except For Hx Cardiac Problems: Yes - CHF, Prostethic heart valve, Afib, Hyperlipidemia Hx Hypertension: Yes - Dysphagia Hx Cancer: No Hx Gastrointestinal Problems: No Hx Neurological Problems: No Review of Systems Per chart review: Respiratory: Reports: shortness of breath Cardiovascular: Reports: chest pain All Other Systems: limited - Secondary to patient condition Physical Exam Vital Signs Date Time Temp Pulse Resp B/P (MAP) Pulse Ox O2 Delivery O2 Flow Rate FiO2 10/04/17 17:59 97.1 130 20 133/103 97 Room Air 97.2 10/06/17 04:55 100 General Appearance: other - Unresponsive. CPR in progress. [id number]-[id number]. Eyes: bilateral eye PERRL ENT: normal ENT inspection, normal pharynx Neck: full range of motion Respiratory: other - No respiration without [id number] Cardiovascular #1: HS1, HS2 afib Gastrointestinal: soft, no mass Genitourinary: normal inspection Musculoskeletal: back normal Neurologic: other - Unresponsive, incfreased tone on left Skin: normal color Chest X-Ray Ordered: Yes # of Views/Limited/Complete: 1 View Indication: Shortness of Breath EP Interpretation: Yes Interpretation: no consolidation, no pneumothorax, other - Cardiomegaly. Endotracheal tube in good position. No pneumothorax Impression: Other - s/p intubation Electronically Signed by: Gerhard Garcia MD Last Vital Signs Date Time Temp Pulse Resp B/P (MAP) Pulse Ox O2 Delivery O2 Flow Rate FiO2 10/06/17 04:55 123 15 100 10/06/17 04:00 98.4 109/73 97 Room Air 98.4 Labs/ABG/CXR noted Assessment: S/p Code Blue S/p Atrial fibrillation/Venticular Fibrillation Respiratory Failure Possible Hypoxic Cerebral Injury, await Neurological Prognostication/ investigations H/o Hypertension Congestive Heart Failure Previous valve replacement Plan: Continue current ventilator settings Wean FIO2 IV fluids PRN PPX Critical Care - Objective Last 24 Hour Vital Signs Date Time Temp Pulse Resp B/P (MAP) Pulse Ox O2 Delivery O2 Flow Rate FiO2 10/06/17 10:00 127/54 10/06/17 09:30 120/68 10/06/17 09:24 126/64 10/06/17 09:17 131 15 50 10/06/17 09:00 131 126/64 10/06/17 08:00 128 10/06/17 08:00 115 10/06/17 08:00 110 20 126/64 99 Mechanical Ventilator 50 10/06/17 07:29 130 16 50 10/06/17 07:00 112/58 10/06/17 06:00 118/67 10/06/17 05:52 50 10/06/17 05:15 80/40 10/06/17 04:55 123 15 100 10/06/17 04:00 98.4 113 20 109/73 97 Room Air 98.4 10/06/17 04:00 137 10/06/17 03:41 98.4 10/06/17 03:11 98.3 10/06/17 03:00 20 122/66 96 10/06/17 00:00 98.3 95 19 118/55 95 Room Air 98.3 10/06/17 00:00 128 10/05/17 20:00 98 10/05/17 20:00 98.4 90 20 116/52 95 Room Air 98.4 10/05/17 16:00 120 10/05/17 16:00 97.8 105 18 112/83 97 Room Air 97.8 10/05/17 12:00 97.7 104 18 101/60 98 Room Air 97.7 10/05/17 12:00 102 Micro: Microbiology Date/Time Source Procedure Growth Status 10/05/17 00:34 Other Gram Stain Pending Resulted 10/05/17 00:34 Wound Culture - Preliminary Gram Negative Bacillus 1 Staphylococcus Aureus Strep Species, Gamma-Hemolytic Resulted Critical Care - Subjective ROS Limited/Unobtainable: Yes Condition: critical IV Access: central EKG Rhythm: Atrial Fibrillation FI02: 50 Vent Support Breath Rate: 15 Vent Support Mode: AC Vent Tidal Volume: 600 Sputum Amount: Small PEEP: 5.0 PIP: 27 I&O: Intake and Output 10/05/17 10/06/17 19:00 07:00 Intake Total 240 ml 418.60 ml Output Total 600 ml 170 ml Balance -360 ml 248.60 ml Intake Oral 240 ml IV Total 418.60 ml Output Urine Total 600 ml 170 ml # Bowel Movements 1 ET-Tube: 7.5 ET Position: 25 Brijesh Villa MD Oct 06, 2017 10:49
[2017-10-06] MEDS: Aspirin Baby 81mg ORAL SCH (11:00)
[2017-10-06] MEDS ORDERED: Cefepime HCl 1 GM in D5W 110 ML IVPB SCH (11:30)
[2017-10-06] MEDS: Cefepime 2gm/D5W 110ml IV SCH ×4 (12:00→23:50)
[2017-10-06] MEDS: Vancomycin 750mg/NS 250ml 250 ML IVPB SCH ×2 (13:00→23:51)
--- NOTE | 2017-10-06 14:14 | Infectious Diseases Prog Note ---
Assessment/Plan Assessment/Plan antibiotics : vancomycin iv, cefepime A 1. lumbar discitis 2. leucocytosis 3. hypertension 4. shock 5. respiratory failure P 1. continue iv vancomycin, cefepime 2. will follow up cultures Subjective ROS Limited/Unobtainable: Yes Allergies: Coded Allergies: PENICILLINS (Verified Allergy, Unknown, 10/04/17) Objective Vital Signs Last 24 Hour Vital Signs Date Time Temp Pulse Resp B/P (MAP) Pulse Ox O2 Delivery O2 Flow Rate FiO2 10/06/17 13:30 93 24 123/59 99 Mechanical Ventilator 40 10/06/17 13:27 89 14 30 10/06/17 13:00 98 18 106/61 99 Mechanical Ventilator 40 10/06/17 13:00 104/53 10/06/17 12:30 88 15 104/53 99 Mechanical Ventilator 40 10/06/17 12:17 40 10/06/17 12:00 98.0 102 21 107/66 99 Mechanical Ventilator 50 98.0 10/06/17 12:00 107/66 10/06/17 12:00 86 10/06/17 12:00 128 10/06/17 11:30 105 18 112/49 99 Mechanical Ventilator 50 10/06/17 11:30 105 18 100/79 99 Mechanical Ventilator 50 10/06/17 11:00 107 23 121/67 100 Mechanical Ventilator 50 10/06/17 11:00 121/67 10/06/17 10:57 103 25 50 10/06/17 10:30 108 23 117/60 100 Mechanical Ventilator 50 10/06/17 10:00 127/54 10/06/17 10:00 112 20 127/54 99 Mechanical Ventilator 50 10/06/17 09:30 120/68 10/06/17 09:30 113 17 120/68 99 Mechanical Ventilator 50 10/06/17 09:24 126/64 10/06/17 09:17 131 15 50 10/06/17 09:00 131 126/64 10/06/17 09:00 124 16 124/53 99 Mechanical Ventilator 50 10/06/17 08:30 126 16 126/64 99 Mechanical Ventilator 50 10/06/17 08:00 128 10/06/17 08:00 115 10/06/17 08:00 110 20 126/64 99 Mechanical Ventilator 50 10/06/17 07:29 130 16 50 10/06/17 07:00 112/58 10/06/17 06:00 118/67 10/06/17 05:52 50 10/06/17 05:15 80/40 10/06/17 04:55 123 15 100 10/06/17 04:00 98.4 113 20 109/73 97 Room Air 98.4 10/06/17 04:00 137 10/06/17 03:41 98.4 10/06/17 03:11 98.3 10/06/17 03:00 20 122/66 96 10/06/17 00:00 98.3 95 19 118/55 95 Room Air 98.3 10/06/17 00:00 128 10/05/17 20:00 98 10/05/17 20:00 98.4 90 20 116/52 95 Room Air 98.4 10/05/17 16:00 120 10/05/17 16:00 97.8 105 18 112/83 97 Room Air 97.8 Height (Feet): 5 Height (Inches): 9.00 Weight (Pounds): 260 HEENT: other - intubated Respiratory/Chest: lungs clear Cardiovascular: normal rate, regular rhythm, no gallop/murmur Abdomen: soft, non tender Extremities: other - + edema, right groin catheter Microbiology Date/Time Source Procedure Growth Status 10/05/17 00:34 Other Gram Stain - Final Resulted 10/05/17 00:34 Wound Culture - Preliminary Gram Negative Bacillus 1 Staphylococcus Aureus Strep Species, Gamma-Hemolytic Resulted Laboratory Tests Test 10/06/17 05:06 10/06/17 05:40 10/06/17 08:10 10/06/17 11:20 White Blood Count 20.4 K/UL (4.8-10.8) H Red Blood Count 4.04 M/UL (4.70-6.10) L Hemoglobin 12.2 G/DL (14.2-18.0) L Hematocrit 38.1 % (42.0-52.0) L Mean Corpuscular Volume 94 FL (80-99) Mean Corpuscular Hemoglobin 30.3 PG (27.0-31.0) Mean Corpuscular Hemoglobin Concent 32.1 G/DL (32.0-36.0) Red Cell Distribution Width 13.7 % (11.6-14.8) Platelet Count 221 K/UL (150-450) Mean Platelet Volume 7.9 FL (6.5-10.1) Neutrophils (%) (Auto) % (45.0-75.0) Lymphocytes (%) (Auto) % (20.0-45.0) Monocytes (%) (Auto) % (1.0-10.0) Eosinophils (%) (Auto) % (0.0-3.0) Basophils (%) (Auto) % (0.0-2.0) Differential Total Cells Counted 100 Neutrophils % (Manual) 83 % (45-75) H Lymphocytes % (Manual) 7 % (20-45) L Monocytes % (Manual) 10 % (1-10) Eosinophils % (Manual) 0 % (0-3) Basophils % (Manual) 0 % (0-2) Band Neutrophils 0 % (0-8) Platelet Estimate Adequate Platelet Morphology Normal Red Blood Cell Morphology Normal Sodium Level 141 MMOL/L (136-145) Potassium Level 4.1 MMOL/L (3.5-5.1) Chloride Level 107 MMOL/L (98-107) Carbon Dioxide Level 22 MMOL/L (21-32) Anion Gap 12 mmol/L (5-15) Blood Urea Nitrogen 32 mg/dL (7-18) H Creatinine 1.1 MG/DL (0.55-1.30) Estimat Glomerular Filtration Rate mL/min (>60) Glucose Level 170 MG/DL (74-106) H Calcium Level 8.6 MG/DL (8.5-10.1) Magnesium Level 2.0 MG/DL (1.8-2.4) Troponin I 1.947 ng/mL (0.000-0.056) Pro-B-Type Natriuretic Peptide 2664 pg/mL (0-125) H Arterial Blood pH 7.449 (7.350-7.450) 7.420 (7.350-7.450) Arterial Blood Partial Pressure CO2 27.8 mmHg (35.0-45.0) L 36.4 mmHg (35.0-45.0) Arterial Blood Partial Pressure O2 296.2 mmHg (75.0-100.0) H 127.1 mmHg (75.0-100.0) H Arterial Blood HCO3 18.8 mmol/L (22.0-26.0) L 23.1 mmol/L (22.0-26.0) Arterial Blood Oxygen Saturation 99.4 % (92.0-98.0) H 98.4 % (92.0-98.0) H Arterial Blood Base Excess -3.8 -1.0 Keith Test Positive Positive Vancomycin Level Trough 10.1 ug/mL (5.0-12.0) Current Medications Medications (Trade) Dose Ordered Sig/Usama Route PRN Reason Start Time Stop Time Status Last Admin Dose Admin Amiodarone HCl 900 mg/Dextrose 500 ml @ 0 mls/hr Q24H IV 10/06/17 07:45 10/07/17 05:14 10/06/17 09:25 Ascorbic Acid (Vitamin C) 500 mg DAILY ORAL 10/06/17 09:00 11/04/17 08:59 Aspirin (ASA) 81 mg DAILY ORAL 10/06/17 11:00 11/05/17 10:59 Atorvastatin Calcium (Lipitor) 40 mg BEDTIME ORAL 10/06/17 21:00 11/03/17 22:03 Cefepime HCl 2 gm/ Dextrose 110 ml @ 220 mls/hr Q12HR@0000,1200 IV 10/06/17 12:00 10/13/17 11:59 10/06/17 12:00 Enoxaparin Sodium (Lovenox) 60 mg EVERY 12 HOURS SUBQ 10/06/17 09:00 11/03/17 23:29 10/06/17 09:30 Furosemide (Lasix) 40 mg EVERY 12 HOURS IV 10/06/17 09:00 11/05/17 08:59 10/06/17 09:26 Gadobutrol (Gadavist) 7.5 mmol NOW PRN IV Radiology Procedure 10/06/17 07:40 10/07/17 13:14 Hydromorphone HCl (Dilaudid) 0.5 mg Q4H PRN IVP For Pain 10/06/17 07:45 10/11/17 07:44 Metoprolol Tartrate (Lopressor) 50 mg BID ORAL 10/06/17 09:00 11/03/17 23:29 Norepinephrine Bitartrate 8 mg/ Dextrose 250 ml @ 0 mls/hr Q24H IV 10/06/17 07:45 11/05/17 07:44 10/06/17 09:24 Ondansetron HCl (Zofran) 4 mg Q6H PRN IVP Nausea & Vomiting 10/06/17 07:45 11/03/17 07:44 Polyethylene Glycol (Miralax) 17 gm DAILY ORAL 10/06/17 09:00 11/04/17 08:59 Sennosides (Senokot) 1 tab DAILY ORAL 10/06/17 09:00 11/04/17 08:59 Spironolactone (Aldactone) 25 mg BID ORAL 10/06/17 09:00 11/03/17 22:06 Tamsulosin HCl (Flomax) 0.4 mg BEDTIME ORAL 10/06/17 21:00 11/03/17 22:06 Temazepam (Restoril) 15 mg HSPRN PRN ORAL Insomnia 10/06/17 21:45 10/11/17 21:44 Vancomycin HCl (Vanco rx to dose) 1 ea DAILY PRN MISC Per rx protocol 10/06/17 09:00 11/03/17 21:44 Vancomycin/Sodium Chloride 250 ml @ 166.667 mls/hr Q12H IVPB 10/06/17 12:00 10/10/17 00:00 AMELIA TREJO Oct 06, 2017 14:14
[2017-10-06] MEDS: NS w/KCl 20mEq 1,000 ML IV SCH (19:15)
[2017-10-06] MEDS: Dyna-Hex 2% Top Sol 2oz TOPIC SCH (20:25)
[2017-10-06] MEDS ORDERED: Tamsulosin 0.4mg cap ORAL SCH (21:00)
[2017-10-06] MEDS: Atorvastatin 20mg tab ORAL SCH (21:20)
--- NOTE | 2017-10-06 21:30 | Progress Note ---
DATE: 10/06/2017 CARDIOLOGY PROGRESS NOTE SUBJECTIVE: The patient's condition is critical. Prognosis guarded. The patient was found unresponsive early this morning and pulseless. Code Blue was called. The patient was ultimately resuscitated with CPR protocol after receiving several doses of epinephrine and started on amiodarone drip. The patient was noted to have VFib and required defibrillation as well. He was unresponsive although now he is starting to open his eyes and is more alert. He has been on pressors, but has been tapered off with his blood pressure ranging around 100 systolic at this time. Monitored rhythm remains atrial fibrillation. OBJECTIVE: GENERAL: Alert and responds to his name, orally intubated. RESPIRATORY: Bilateral breath sounds with rhonchi. HEART: Irregularly irregular rhythm. Normal S1, S2. There is a 1/6 systolic murmur at the base. ABDOMEN: Soft, obese. EXTREMITIES: With trace dependent edema. LABORATORY AND DIAGNOSTIC DATA: EKG revealed atrial fibrillation with nonspecific ST-T wave changes. White count 20, hemoglobin 12. Sodium 141, potassium 4.1, bicarbonate 22, BUN 32, creatinine 1.1. Troponin 1.947. Pro-natriuretic peptide is 2600. Magnesium is 2.0. ABG, pH 7.42, pCO2 36, pO2 127. IMPRESSION: 1. Status post successful Code Blue resuscitation following full arrest. 2. Acute myocardial infarction, likely associated with cardiac arrest. 3. History of aortic valve replacement. 4. History of bariatric surgery. 5. Paroxysmal atrial fibrillation. 6. Acute on chronic diastolic congestive heart failure. 7. Ischemic heart disease. 8. Critical and guarded. PLAN: 1. Avoid pressors. 2. Maintain adequate hydration. 3. Monitor renal parameters. 4. Empiric antibiotics. 5. Ventilator support with wean to follow. 6. Serial troponin levels. 7. Discontinue amiodarone. 8. Full anticoagulation for cardioembolic prophylaxis. Brijesh Vela M.D. DR: Manas JOB#: [id number] CC:
[2017-10-06] MEDS: Tamsulosin 0.4mg cap ORAL SCH (21:32)
[2017-10-07] VITALS (25 sets, daily range): BP systolic 89–134; BP diastolic 42–83
[2017-10-07] MEDS: NS w/KCl 20mEq 1,000 ML IV SCH ×3 (05:38→23:55)
[2017-10-07 05:48] LABS: BASOPHILS % (AUTO) 0.4 % (0.0-2.0); HEMATOCRIT 35.4 % (42.0-52.0); HEMOGLOBIN 11.8 G/DL (14.2-18.0); LYMPHOCYTES % (AUTO) 6.2 % (20.0-45.0); MEAN CORPUSCULAR VOLUME 93 FL (80-99); NEUTROPHILS % (AUTO) 83.4 % (45.0-75.0); PLATELET COUNT 242 K/UL (150-450); RED BLOOD COUNT 3.81 M/UL (4.70-6.10); RED CELL DISTRIBUTION WIDTH 13.3 % (11.6-14.8); WHITE BLOOD COUNT 15.6 K/UL (4.8-10.8)
[2017-10-07 06:21] LABS: ALANINE AMINOTRANSFERASE 75 U/L (12-78); ALBUMIN 1.8 G/DL (3.4-5.0); ALBUMIN/GLOBULIN RATIO 0.4 (1.0-2.7); ALKALINE PHOSPHATASE 198 U/L (46-116); ANION GAP 11 mmol/L (5-15); ASPARTATE AMINO TRANSFERASE 112 U/L (15-37); BILIRUBIN,TOTAL 0.8 MG/DL (0.2-1.0); BLOOD UREA NITROGEN 40 mg/dL (7-18); CALCIUM 8.5 MG/DL (8.5-10.1); CARBON DIOXIDE 21 MMOL/L (21-32); CHLORIDE 112 MMOL/L (98-107); CREATININE 1.2 MG/DL (0.55-1.30); POTASSIUM 4.5 MMOL/L (3.5-5.1); SODIUM 144 MMOL/L (136-145)
--- NOTE | 2017-10-07 08:40 | General Progress Note ---
Assessment/Plan Problem List: (1) Discitis of lumbar region ICD Codes: M46.46 - Discitis, unspecified, lumbar region SNOMED: 456076620 (2) Cardiac arrest ICD Codes: I46.9 - Cardiac arrest, cause unspecified SNOMED: 824710740 (3) Atrial fibrillation with RVR ICD Codes: I48.91 - Unspecified atrial fibrillation SNOMED: 619769982060464 (4) Ventricular fibrillation ICD Codes: I49.01 - Ventricular fibrillation SNOMED: 02835129 (5) Respiratory failure requiring intubation ICD Codes: J96.90 - Respiratory failure, unspecified, unspecified whether with hypoxia or hypercapnia SNOMED: 360873243 Status: stable Assessment/Plan vent support wean per pulm follow up labs iv abx follow up cultures dvt/stress ulcer prophylaxis message left with brother to update him on current status Subjective ROS Limited/Unobtainable: No Constitutional: Reports: malaise, weakness HEENT: Reports: no symptoms Cardiovascular: Reports: no symptoms Respiratory: Reports: no symptoms Gastrointestinal/Abdominal: Reports: no symptoms Genitourinary: Reports: no symptoms Neurologic/Psychiatric: Reports: no symptoms Endocrine: Reports: no symptoms Hematologic/Lymphatic: Reports: no symptoms Allergies: Coded Allergies: PENICILLINS (Verified Allergy, Unknown, 10/04/17) All Systems: reviewed and negative except above Subjective on the vent. more alert. no fever or chills. no chest pain . Objective Last 24 Hour Vital Signs Date Time Temp Pulse Resp B/P (MAP) Pulse Ox O2 Delivery O2 Flow Rate FiO2 10/07/17 08:15 78 15 25 10/07/17 08:15 99 10/07/17 08:00 25 10/07/17 08:00 99.0 80 15 102/59 97 Mechanical Ventilator 25 99.0 10/07/17 08:00 78 10/07/17 07:02 86 19 110/60 98 Mechanical Ventilator 40 10/07/17 07:00 86 19 120/53 98 Mechanical Ventilator 40 10/07/17 06:41 85 16 25 10/07/17 06:00 86 19 110/60 98 Mechanical Ventilator 40 10/07/17 05:13 88 21 25 10/07/17 05:00 88 19 111/59 98 Mechanical Ventilator 40 10/07/17 04:00 99.4 84 18 111/83 98 Mechanical Ventilator 40 99.4 6/27/18 04:00 84 10/07/17 03:30 80 22 25 10/07/17 03:00 82 16 134/60 98 Mechanical Ventilator 40 10/07/17 02:00 80 16 107/60 98 Mechanical Ventilator 40 10/07/17 01:22 79 24 25 10/07/17 01:00 79 17 118/60 97 Mechanical Ventilator 40 10/07/17 00:00 80 10/07/17 00:00 99.6 81 15 115/57 97 Mechanical Ventilator 40 99.6 10/06/17 23:00 79 15 110/50 97 Mechanical Ventilator 40 10/06/17 22:48 78 21 25 10/06/17 22:00 79 15 111/55 97 Mechanical Ventilator 40 10/06/17 21:23 94 22 25 10/06/17 21:00 91 15 119/56 97 Mechanical Ventilator 40 10/06/17 20:00 88 10/06/17 20:00 98.6 91 17 127/78 98 Mechanical Ventilator 40 98.6 10/06/17 19:16 92 24 25 10/06/17 19:07 98.7 90 15 113/53 98 Mechanical Ventilator 40 98.7 10/06/17 18:30 92 15 121/50 98 Mechanical Ventilator 40 10/06/17 18:00 92 113/53 10/06/17 18:00 91 22 132/87 99 Mechanical Ventilator 40 10/06/17 17:30 82 22 106/55 98 Mechanical Ventilator 40 10/06/17 17:07 90 28 25 10/06/17 17:00 91 24 109/80 98 Mechanical Ventilator 40 10/06/17 16:29 84 26 108/52 99 Mechanical Ventilator 40 10/06/17 16:00 25 10/06/17 16:00 99.4 79 16 95/54 100 Mechanical Ventilator 40 99.4 10/06/17 16:00 79 10/06/17 15:30 85 15 100/53 100 Mechanical Ventilator 40 10/06/17 15:20 84 26 30 10/06/17 15:00 86 21 108/67 99 Mechanical Ventilator 40 10/06/17 14:30 90 22 102/62 99 Mechanical Ventilator 40 10/06/17 14:00 87 15 95/52 99 Mechanical Ventilator 40 10/06/17 13:30 93 24 123/59 99 Mechanical Ventilator 40 10/06/17 13:27 89 14 30 10/06/17 13:00 98 18 106/61 99 Mechanical Ventilator 40 10/06/17 13:00 104/53 10/06/17 12:30 88 15 104/53 99 Mechanical Ventilator 40 10/06/17 12:17 40 10/06/17 12:00 98.0 102 21 107/66 99 Mechanical Ventilator 50 98.0 10/06/17 12:00 107/66 10/06/17 12:00 86 10/06/17 12:00 30 10/06/17 12:00 128 10/06/17 11:30 105 18 112/49 99 Mechanical Ventilator 50 10/06/17 11:30 105 18 100/79 99 Mechanical Ventilator 50 10/06/17 11:00 107 23 121/67 100 Mechanical Ventilator 50 10/06/17 11:00 121/67 10/06/17 10:57 103 25 50 10/06/17 10:30 108 23 117/60 100 Mechanical Ventilator 50 10/06/17 10:00 127/54 10/06/17 10:00 112 20 127/54 99 Mechanical Ventilator 50 10/06/17 09:30 120/68 10/06/17 09:30 113 17 120/68 99 Mechanical Ventilator 50 10/06/17 09:24 126/64 10/06/17 09:17 131 15 50 10/06/17 09:00 131 126/64 10/06/17 09:00 124 16 124/53 99 Mechanical Ventilator 50 Intake and Output 10/06/17 10/07/17 19:00 07:00 Intake Total 586.214 ml 1200 ml Output Total 400 ml 390 ml Balance 186.214 ml 810 ml IV Total 586.214 ml 1200 ml Output Urine Total 400 ml 390 ml # Bowel Movements 1 1 Laboratory Tests 10/06/17 11:20: Vancomycin Level Trough 10.1 10/07/17 04:03: White Blood Count 15.6H, Red Blood Count 3.81L, Hemoglobin 11.8L, Hematocrit 35.4L, Mean Corpuscular Volume 93, Mean Corpuscular Hemoglobin 31.1H, Mean Corpuscular Hemoglobin Concent 33.5, Red Cell Distribution Width 13.3, Platelet Count 242, Mean Platelet Volume 8.3, Neutrophils (%) (Auto) 83.4H, Lymphocytes ( %) (Auto) 6.2L, Monocytes (%) (Auto) 10.0, Eosinophils (%) (Auto) 0.0, Basophils (%) (Auto) 0.4, Sodium Level 144, Potassium Level 4.5, Chloride Level 112H, Carbon Dioxide Level 21, Anion Gap 11, Blood Urea Nitrogen 40H, Creatinine 1.2, Estimat Glomerular Filtration Rate , Glucose Level 121H, Uric Acid 9.0H, Calcium Level 8.5, Total Bilirubin 0.8, Aspartate Amino Transf (AST/ SGOT) 112H, Alanine Aminotransferase (ALT/SGPT) 75, Alkaline Phosphatase 198H, Troponin I 8.297H, Total Protein 6.3L, Albumin 1.8L, Globulin 4.5, Albumin/ Globulin Ratio 0.4L Height (Feet): 5 Height (Inches): 9.00 Weight (Pounds): 255 General Appearance: WD/WN, confused Neck: supple Cardiovascular: normal rate, regular rhythm Respiratory/Chest: chest wall non-tender, lungs clear, normal breath sounds, no respiratory distress Abdomen: normal bowel sounds, non tender, soft, no organomegaly Edema: mild edema Neurologic: alert, responsive Jamin Mendoza MD Oct 07, 2017 08:40
[2017-10-07] MEDS: Ascorbic Acid 500mg tab ORAL SCH (08:45)
[2017-10-07] MEDS: Miralax 17gm pkt ORAL SCH (08:45)
[2017-10-07] MEDS: Sennosides 8.6mg ORAL SCH (08:45)
[2017-10-07] MEDS: Metoprolol Tartrate 50mg tab ORAL SCH ×2 (08:45→17:44)
[2017-10-07] MEDS: Enoxaparin 60mg Inj SUBQ SCH ×2 (08:47→20:10)
[2017-10-07] MEDS: Aspirin Baby 81mg ORAL SCH (08:59)
[2017-10-07] MEDS: Pantoprazole Inj IVP SCH (08:59)
--- NOTE | 2017-10-07 10:21 | Infectious Diseases Prog Note ---
Assessment/Plan Assessment/Plan A 1. lumbar discitis/osteomyelitis 2. leucocytosis improving 3. hypertension 4. s/p cardia arrest 5. respiratory failure 6. MRSA, VRE and ESBL colonization 7. Atrial fibrillation P 1. continue iv vancomycin, cefepime 2. will follow up cultures Subjective ROS Limited/Unobtainable: Yes Constitutional: Reports: no symptoms Allergies: Coded Allergies: PENICILLINS (Verified Allergy, Unknown, 10/04/17) Objective Vital Signs Last 24 Hour Vital Signs Date Time Temp Pulse Resp B/P (MAP) Pulse Ox O2 Delivery O2 Flow Rate FiO2 10/07/17 10:00 75 23 113/52 99 Mechanical Ventilator 25 10/07/17 09:00 75 24 120/58 98 Mechanical Ventilator 25 10/07/17 08:55 81 18 25 10/07/17 08:45 94 117/56 10/07/17 08:15 78 15 25 10/07/17 08:15 99 10/07/17 08:00 25 10/07/17 08:00 99.0 80 15 102/59 97 Mechanical Ventilator 25 99.0 10/07/17 08:00 78 10/07/17 07:02 86 19 110/60 98 Mechanical Ventilator 40 10/07/17 07:00 86 19 120/53 98 Mechanical Ventilator 40 10/07/17 06:41 85 16 25 10/07/17 06:00 86 19 110/60 98 Mechanical Ventilator 40 10/07/17 05:13 88 21 25 10/07/17 05:00 88 19 111/59 98 Mechanical Ventilator 40 10/07/17 04:00 99.4 84 18 111/83 98 Mechanical Ventilator 40 99.4 10/07/17 04:00 84 10/07/17 03:30 80 22 25 10/07/17 03:00 82 16 134/60 98 Mechanical Ventilator 40 10/07/17 02:00 80 16 107/60 98 Mechanical Ventilator 40 10/07/17 01:22 79 24 25 10/07/17 01:00 79 17 118/60 97 Mechanical Ventilator 40 10/07/17 00:00 80 10/07/17 00:00 99.6 81 15 115/57 97 Mechanical Ventilator 40 99.6 10/06/17 23:00 79 15 110/50 97 Mechanical Ventilator 40 10/06/17 22:48 78 21 25 10/06/17 22:00 79 15 111/55 97 Mechanical Ventilator 40 10/06/17 21:23 94 22 25 10/06/17 21:00 91 15 119/56 97 Mechanical Ventilator 40 10/06/17 20:00 88 10/06/17 20:00 98.6 91 17 127/78 98 Mechanical Ventilator 40 98.6 10/06/17 19:16 92 24 25 10/06/17 19:07 98.7 90 15 113/53 98 Mechanical Ventilator 40 98.7 10/06/17 18:30 92 15 121/50 98 Mechanical Ventilator 40 10/06/17 18:00 92 113/53 10/06/17 18:00 91 22 132/87 99 Mechanical Ventilator 40 10/06/17 17:30 82 22 106/55 98 Mechanical Ventilator 40 10/06/17 17:07 90 28 25 10/06/17 17:00 91 24 109/80 98 Mechanical Ventilator 40 10/06/17 16:29 84 26 108/52 99 Mechanical Ventilator 40 10/06/17 16:00 25 10/06/17 16:00 99.4 79 16 95/54 100 Mechanical Ventilator 40 99.4 10/06/17 16:00 79 10/06/17 15:30 85 15 100/53 100 Mechanical Ventilator 40 10/06/17 15:20 84 26 30 10/06/17 15:00 86 21 108/67 99 Mechanical Ventilator 40 10/06/17 14:30 90 22 102/62 99 Mechanical Ventilator 40 10/06/17 14:00 87 15 95/52 99 Mechanical Ventilator 40 10/06/17 13:30 93 24 123/59 99 Mechanical Ventilator 40 10/06/17 13:27 89 14 30 10/06/17 13:00 98 18 106/61 99 Mechanical Ventilator 40 10/06/17 13:00 104/53 10/06/17 12:30 88 15 104/53 99 Mechanical Ventilator 40 10/06/17 12:17 40 10/06/17 12:00 98.0 102 21 107/66 99 Mechanical Ventilator 50 98.0 10/06/17 12:00 107/66 10/06/17 12:00 86 10/06/17 12:00 30 10/06/17 12:00 128 10/06/17 11:30 105 18 112/49 99 Mechanical Ventilator 50 10/06/17 11:30 105 18 100/79 99 Mechanical Ventilator 50 10/06/17 11:00 107 23 121/67 100 Mechanical Ventilator 50 10/06/17 11:00 121/67 10/06/17 10:57 103 25 50 10/06/17 10:30 108 23 117/60 100 Mechanical Ventilator 50 Height (Feet): 5 Height (Inches): 9.00 Weight (Pounds): 268 HEENT: other - orally intubated Respiratory/Chest: lungs clear, other - on ventilator Cardiovascular: normal rate Abdomen: soft, non tender Extremities: no edema Skin: other - sacral /coccyx pressure ulcer stage 2 Neurologic/Psychiatric: alert, responsive, other - moves all extremities Microbiology Date/Time Source Procedure Growth Status 10/05/17 00:34 Other Gram Stain - Final Complete 10/05/17 00:34 Wound Culture - Final Escherichia Coli - Esbl Staphylococcus Aureus - Mrsa Enterococcus Faecalis Complete 10/04/17 21:00 Nasal Nares MRSA Culture - Final NO METHICILLIN RESISTANT STAPH AUREUS... Complete 10/04/17 21:00 Rectum VRE Culture - Final Enterococcus Faecalis - Vre Complete 10/04/17 21:00 Rectum - Final NO CARBAPENEM-RESISTANT ENTEROBACTERI... Complete Laboratory Tests Test 10/06/17 11:20 10/07/17 04:03 10/07/17 09:40 Vancomycin Level Trough 10.1 ug/mL (5.0-12.0) White Blood Count 15.6 K/UL (4.8-10.8) H Red Blood Count 3.81 M/UL (4.70-6.10) L Hemoglobin 11.8 G/DL (14.2-18.0) L Hematocrit 35.4 % (42.0-52.0) L Mean Corpuscular Volume 93 FL (80-99) Mean Corpuscular Hemoglobin 31.1 PG (27.0-31.0) H Mean Corpuscular Hemoglobin Concent 33.5 G/DL (32.0-36.0) Red Cell Distribution Width 13.3 % (11.6-14.8) Platelet Count 242 K/UL (150-450) Mean Platelet Volume 8.3 FL (6.5-10.1) Neutrophils (%) (Auto) 83.4 % (45.0-75.0) H Lymphocytes (%) (Auto) 6.2 % (20.0-45.0) L Monocytes (%) (Auto) 10.0 % (1.0-10.0) Eosinophils (%) (Auto) 0.0 % (0.0-3.0) Basophils (%) (Auto) 0.4 % (0.0-2.0) Sodium Level 144 MMOL/L (136-145) Potassium Level 4.5 MMOL/L (3.5-5.1) Chloride Level 112 MMOL/L (98-107) H Carbon Dioxide Level 21 MMOL/L (21-32) Anion Gap 11 mmol/L (5-15) Blood Urea Nitrogen 40 mg/dL (7-18) H Creatinine 1.2 MG/DL (0.55-1.30) Estimat Glomerular Filtration Rate mL/min (>60) Glucose Level 121 MG/DL (74-106) H Uric Acid 9.0 MG/DL (2.6-7.2) H Calcium Level 8.5 MG/DL (8.5-10.1) Total Bilirubin 0.8 MG/DL (0.2-1.0) Aspartate Amino Transf (AST/SGOT) 112 U/L (15-37) H Alanine Aminotransferase (ALT/SGPT) 75 U/L (12-78) Alkaline Phosphatase 198 U/L (46-116) H Troponin I 8.297 ng/mL (0.000-0.056) Total Protein 6.3 G/DL (6.4-8.2) L Albumin 1.8 G/DL (3.4-5.0) L Globulin 4.5 g/dL Albumin/Globulin Ratio 0.4 (1.0-2.7) L Arterial Blood pH 7.441 (7.350-7.450) Arterial Blood Partial Pressure CO2 30.7 mmHg (35.0-45.0) L Arterial Blood Partial Pressure O2 90.9 mmHg (75.0-100.0) Arterial Blood HCO3 20.4 mmol/L (22.0-26.0) L Arterial Blood Oxygen Saturation 97.0 % (92.0-98.0) Arterial Blood Base Excess -2.8 Keith Test Positive Current Medications Medications (Trade) Dose Ordered Sig/Usama Route PRN Reason Start Time Stop Time Status Last Admin Dose Admin Ascorbic Acid (Vitamin C) 500 mg DAILY ORAL 6/26/18 09:00 11/04/17 08:59 10/07/17 08:45 Aspirin (ASA) 81 mg DAILY ORAL 10/06/17 11:00 11/05/17 10:59 10/07/17 08:59 Atorvastatin Calcium (Lipitor) 40 mg BEDTIME ORAL 10/06/17 21:00 11/03/17 22:03 10/06/17 21:20 Cefepime HCl 2 gm/ Dextrose 110 ml @ 220 mls/hr Q12HR@0000,1200 IV 10/06/17 12:00 10/13/17 11:59 10/06/17 23:50 Chlorhexidine Gluconate (Rossana-Hex 2%) 1 applic DAILY@2000 TOPIC 10/06/17 20:00 11/05/17 19:59 10/06/17 20:25 Enoxaparin Sodium (Lovenox) 60 mg EVERY 12 HOURS SUBQ 10/06/17 09:00 11/03/17 23:29 10/07/17 08:47 Gadobutrol (Gadavist) 7.5 mmol NOW PRN IV Radiology Procedure 10/06/17 07:40 10/07/17 13:14 Hydromorphone HCl (Dilaudid) 0.5 mg Q4H PRN IVP For Pain 10/06/17 07:45 10/11/17 07:44 Metoprolol Tartrate (Lopressor) 50 mg BID ORAL 10/06/17 09:00 11/03/17 23:29 10/07/17 08:45 Ondansetron HCl (Zofran) 4 mg Q6H PRN IVP Nausea & Vomiting 10/06/17 07:45 11/03/17 07:44 Pantoprazole (Protonix) 40 mg DAILY IVP 10/07/17 09:00 11/06/17 08:59 10/07/17 08:59 Polyethylene Glycol (Miralax) 17 gm DAILY ORAL 10/06/17 09:00 11/04/17 08:59 10/07/17 08:45 Sennosides (Senokot) 1 tab DAILY ORAL 10/06/17 09:00 11/04/17 08:59 10/07/17 08:45 Sodium Chloride 1,000 ml @ 100 mls/hr Q10H IV 10/06/17 18:15 11/05/17 18:14 10/07/17 05:38 Tamsulosin HCl (Flomax) 0.4 mg BEDTIME ORAL 10/06/17 21:00 11/05/17 20:59 10/06/17 21:32 Vancomycin HCl (Vanco rx to dose) 1 ea DAILY PRN MISC Per rx protocol 10/06/17 09:00 11/03/17 21:44 Vancomycin/Sodium Chloride 250 ml @ 166.667 mls/hr Q12H IVPB 10/06/17 12:00 10/10/17 00:00 10/06/17 23:51 Edin Berger MD Oct 07, 2017 10:21
[2017-10-07] MEDS: Cefepime 2gm/D5W 110ml IV SCH ×4 (11:23→23:46)
[2017-10-07] MEDS: Dexamethasone 4mg/ml vial IVP SCH ×2 (12:48→20:09)
[2017-10-07] MEDS: Vancomycin 750mg/NS 250ml 250 ML IVPB SCH ×2 (12:49→23:47)
--- NOTE | 2017-10-07 12:57 | Diagnostic Imaging Report ---
Indication: NG tube placement Comparison: None Single view of the abdomen obtained Findings: NG tube is projected over the left side of the abdomen within the stomach. There is a relative absence of bowel gas limiting evaluation. There are surgical clips in the left upper quadrant abdomen. Partial visualization of a right femoral central venous line noted. IMPRESSION: Nasogastric tube in good position
--- NOTE | 2017-10-07 13:04 | Diagnostic Imaging Report ---
Indication: Dyspnea Comparison: 10/06/2017 A single view chest radiograph was obtained. Findings: Left hemidiaphragm is elevated. The heart is enlarged. Endotracheal tube and nasogastric tube appear in good position. Sternotomy is noted. IMPRESSION: Elevated left hemidiaphragm and mild atelectasis. No change from the prior study
--- NOTE | 2017-10-07 13:30 | Diagnostic Imaging Report ---
Indication: Post nasogastric and endotracheal tube placement Technique: One view of the chest Comparison: 10/04/2017 Findings: There is slightly increased pleural fluid at the left lung base. There is increased left lung volume loss with basilar atelectasis. Right lung and pleural space, left upper lung remain clear. Interim endotracheal intubation, endotracheal tube tip projecting approximately 6 cm above the gabriel. Interim nasogastric intubation, nasogastric tube tip projecting at the level of gastric fundus, proximal port beyond the gastroesophageal junction. Impression: Satisfactory endotracheal and nasogastric intubation Slightly increased left pleural fluid and basilar atelectasis, over 2 days
--- NOTE | 2017-10-07 16:57 | Pulmonolgy Critical Care Note ---
Critical Care - Asmt/Plan Assessment/Plan: 77-year-old male who was initially admitted to telemetry for atrial fibrillation. S/p code blue, per nursing staff, he became unresponsive and had no pulse. s/p Defibrillation defibrillated. This corresponded with return of pulse. Bolus of amiodarone was given and subsequent amiodarone drip. Intubated and ventilated, much improved neurologically Allergies: Coded Allergies: PENICILLINS (Verified Allergy, Unknown, 10/04/17) Patient History Past Medical History: see triage record, old chart reviewed Past Surgical History: other Pertinent Family History: none Social History: Denies: smoking Immunizations: other Reviewed Nursing Documentation: PMH: Agreed; PSxH: Agreed Nursing Documentation-PMH Past Medical History: No History, Except For Hx Cardiac Problems: Yes - CHF, Prostethic heart valve, Afib, Hyperlipidemia Hx Hypertension: Yes - Dysphagia Hx Cancer: No Hx Gastrointestinal Problems: No Hx Neurological Problems: No Review of Systems Per chart review: Respiratory: Reports: shortness of breath Cardiovascular: Reports: chest pain All Other Systems: limited - Secondary to patient condition Physical Exam Vital Signs Date Time Temp Pulse Resp B/P (MAP) Pulse Ox O2 Delivery O2 Flow Rate FiO2 10/04/17 17:59 97.1 130 20 133/103 97 Room Air 97.2 10/06/17 04:55 100 General Appearance: other - Responsive to command Eyes: bilateral eye PERRL ENT: normal ENT inspection, normal pharynx Neck: full range of motion Respiratory: other - Breathing spontaneously Cardiovascular #1: HS1, HS2 afib Gastrointestinal: soft, no mass Genitourinary: normal inspection Musculoskeletal: back normal Neurologic: No focal signs Skin: normal color Chest X-Ray Ordered: Yes # of Views/Limited/Complete: 1 View Indication: Shortness of Breath EP Interpretation: Yes Interpretation: no consolidation, no pneumothorax, other - Cardiomegaly. Endotracheal tube in good position. No pneumothorax Impression: Other - s/p intubation Electronically Signed by: Gerhard Garcia MD Last Vital Signs Date Time Temp Pulse Resp B/P (MAP) Pulse Ox O2 Delivery O2 Flow Rate FiO2 10/06/17 04:55 123 15 100 10/06/17 04:00 98.4 109/73 97 Room Air 98.4 Labs/ABG/CXR noted Assessment: S/p Code Blue S/p Atrial fibrillation/Venticular Fibrillation Respiratory Failure Improved Neurological status H/o Hypertension Congestive Heart Failure Previous valve replacement Plan: Continue current ventilator settings - wean as tolerated, failed cuff leak test today Wean FIO2 IV fluids PRN PPX Started on Decadron CXR to assessOG tube Critical Care - Objective Last 24 Hour Vital Signs Date Time Temp Pulse Resp B/P (MAP) Pulse Ox O2 Delivery O2 Flow Rate FiO2 10/07/17 16:31 71 18 25 10/07/17 16:00 98.1 71 18 112/54 98 Mechanical Ventilator 25 98.1 10/07/17 16:00 25 10/07/17 16:00 68 10/07/17 15:00 72 17 114/42 99 Mechanical Ventilator 25 10/07/17 14:30 76 20 25 10/07/17 14:00 70 16 115/43 97 Mechanical Ventilator 25 10/07/17 13:00 70 15 115/46 97 Mechanical Ventilator 25 10/07/17 12:22 77 23 25 10/07/17 12:00 25 10/07/17 12:00 99.6 75 22 117/58 97 Mechanical Ventilator 25 99.6 10/07/17 12:00 82 10/07/17 11:00 72 23 112/52 97 Mechanical Ventilator 25 10/07/17 10:30 79 18 25 10/07/17 10:00 75 23 113/52 99 Mechanical Ventilator 25 10/07/17 09:00 75 24 120/58 98 Mechanical Ventilator 25 10/07/17 08:55 81 18 25 10/07/17 08:45 94 117/56 10/07/17 08:15 78 15 25 10/07/17 08:15 99 10/07/17 08:00 25 10/07/17 08:00 99.0 80 15 102/59 97 Mechanical Ventilator 25 99.0 10/07/17 08:00 78 10/07/17 07:02 86 19 110/60 98 Mechanical Ventilator 40 10/07/17 07:00 86 19 120/53 98 Mechanical Ventilator 40 10/07/17 06:41 85 16 25 10/07/17 06:00 86 19 110/60 98 Mechanical Ventilator 40 10/07/17 05:13 88 21 25 10/07/17 05:00 88 19 111/59 98 Mechanical Ventilator 40 10/07/17 04:00 99.4 84 18 111/83 98 Mechanical Ventilator 40 99.4 10/07/17 04:00 84 10/07/17 03:30 80 22 25 10/07/17 03:00 82 16 134/60 98 Mechanical Ventilator 40 10/07/17 02:00 80 16 107/60 98 Mechanical Ventilator 40 10/07/17 01:22 79 24 25 10/07/17 01:00 79 17 118/60 97 Mechanical Ventilator 40 10/07/17 00:00 80 10/07/17 00:00 99.6 81 15 115/57 97 Mechanical Ventilator 40 99.6 10/06/17 23:00 79 15 110/50 97 Mechanical Ventilator 40 10/06/17 22:48 78 21 25 10/06/17 22:00 79 15 111/55 97 Mechanical Ventilator 40 10/06/17 21:23 94 22 25 10/06/17 21:00 91 15 119/56 97 Mechanical Ventilator 40 10/06/17 20:00 88 10/06/17 20:00 98.6 91 17 127/78 98 Mechanical Ventilator 40 98.6 10/06/17 19:16 92 24 25 10/06/17 19:07 98.7 90 15 113/53 98 Mechanical Ventilator 40 98.7 10/06/17 18:30 92 15 121/50 98 Mechanical Ventilator 40 10/06/17 18:00 92 113/53 10/06/17 18:00 91 22 132/87 99 Mechanical Ventilator 40 10/06/17 17:30 82 22 106/55 98 Mechanical Ventilator 40 10/06/17 17:07 90 28 25 10/06/17 17:00 91 24 109/80 98 Mechanical Ventilator 40 Micro: Microbiology Date/Time Source Procedure Growth Status 10/05/17 00:34 Other Gram Stain - Final Complete 10/05/17 00:34 Wound Culture - Final Escherichia Coli - Esbl Staphylococcus Aureus - Mrsa Enterococcus Faecalis Complete 10/04/17 21:00 Nasal Nares MRSA Culture - Final NO METHICILLIN RESISTANT STAPH AUREUS... Complete 10/04/17 21:00 Rectum VRE Culture - Final Enterococcus Faecalis - Vre Complete 10/04/17 21:00 Rectum - Final NO CARBAPENEM-RESISTANT ENTEROBACTERI... Complete Critical Care - Subjective ROS Limited/Unobtainable: Yes Condition: improving IV Access: central EKG Rhythm: Atrial Fibrillation FI02: 25 Vent Support Breath Rate: 15 Vent Support Mode: AC Vent Tidal Volume: 600 Sputum Amount: Small PEEP: 5.0 PIP: 24 I&O: Intake and Output 10/06/17 10/07/17 19:00 07:00 Intake Total 586.214 ml 1240 ml Output Total 400 ml 465 ml Balance 186.214 ml 775 ml IV Total 586.214 ml 1200 ml Other 40 ml Output Urine Total 400 ml 465 ml # Bowel Movements 1 1 ET-Tube: 7.5 ET Position: 25 Brijesh Villa MD Oct 07, 2017 16:57
[2017-10-07] MEDS: NovoLOG Insulin Flexpen SUBQ SCH ×2 (17:47→23:48)
[2017-10-07] MEDS ORDERED: NovoLOG Insulin Flexpen SUBQ SCH (18:00)
[2017-10-07] MEDS: Dyna-Hex 2% Top Sol 2oz TOPIC SCH (20:08)
[2017-10-07] MEDS: Atorvastatin 20mg tab ORAL SCH (20:09)
[2017-10-07] MEDS: Tamsulosin 0.4mg cap ORAL SCH (20:09)
[2017-10-08] VITALS (24 sets, daily range): BP systolic 89–127; BP diastolic 44–92
--- NOTE | 2017-10-08 02:31 | Progress Note ---
DATE: 10/07/2017 CARDIOLOGY PROGRESS NOTE SUBJECTIVE: The patient remains in the intensive care unit, orally intubated, mechanically ventilated, weaning trials are ongoing. He is awake and alert. He denies chest pain. The patient's records were reviewed from [facility] for his recent hospital stay. The patient has a history of both aortic and mitral valve replacement. He had echocardiogram today revealed normal ejection fraction and stable valve gradients and function. He also has a prior history of Maze procedure with known paroxysmal atrial fibrillation. The patient elected not to proceed with anticoagulation. The patient has had a mild troponin elevation during this hospitalization at [facility], but did not have an ischemia workup prior to discharge. OBJECTIVE: VITAL SIGNS: Blood pressure 118/55, pulse 65, respiratory rate 20, and temperature 99. LUNGS: Scattered rhonchi. Orally intubated. HEART: Irregularly irregular rhythm. Normal S1 and S2. A 1/6 systolic murmur at apex. ABDOMEN: Soft. EXTREMITIES: Trace edema. LABORATORY DATA: Wound culture is positive. Blood culture is negative. White count 15.6 and hemoglobin 11.8. Potassium 4.5, BUN 40, creatinine 1.2, troponin up to 8.2, and albumin 1.8. IMPRESSION: 1. Acute myocardial infarction. 2. Aortic and mitral valve replacement. 3. Severe protein calorie malnutrition. 4. Status post cardiopulmonary arrest. 5. Paroxysmal atrial fibrillation with history of Maze procedure. 6. Respiratory failure. 7. Acute on chronic diastolic and systolic congestive heart failure. PLAN: 1. Weaning efforts. 2. Serial troponins. 3. Diuresis. 4. Protein supplement. 5. Full anticoagulation. 6. Check EKG and echocardiogram. 7. Remains high risk. Brijesh Vela M.D. DR: JOSEPH JOB#: [id number] CC:
[2017-10-08] MEDS: NovoLOG Insulin Flexpen SUBQ SCH ×4 (06:25→23:32)
[2017-10-08 06:35] LABS: HEMATOCRIT 32.5 % (42.0-52.0); HEMOGLOBIN 10.5 G/DL (14.2-18.0); MEAN CORPUSCULAR VOLUME 95 FL (80-99); PLATELET COUNT 277 K/UL (150-450); RED BLOOD COUNT 3.44 M/UL (4.70-6.10); RED CELL DISTRIBUTION WIDTH 14.2 % (11.6-14.8); WHITE BLOOD COUNT 16.9 K/UL (4.8-10.8)
[2017-10-08 06:44] LABS: ALANINE AMINOTRANSFERASE 59 U/L (12-78); ALBUMIN 1.7 G/DL (3.4-5.0); ALBUMIN/GLOBULIN RATIO 0.4 (1.0-2.7); ALKALINE PHOSPHATASE 204 U/L (46-116); ANION GAP 9 mmol/L (5-15); ASPARTATE AMINO TRANSFERASE 73 U/L (15-37); BILIRUBIN,TOTAL 0.7 MG/DL (0.2-1.0); BLOOD UREA NITROGEN 43 mg/dL (7-18); CALCIUM 8.4 MG/DL (8.5-10.1); CARBON DIOXIDE 21 MMOL/L (21-32); CHLORIDE 117 MMOL/L (98-107); POTASSIUM 4.7 MMOL/L (3.5-5.1); SODIUM 147 MMOL/L (136-145)
[2017-10-08] MEDS: Sennosides 8.6mg ORAL SCH (08:31)
[2017-10-08] MEDS: Miralax 17gm pkt ORAL SCH (08:31)
[2017-10-08] MEDS: Dexamethasone 4mg/ml vial IVP SCH ×2 (08:31→21:06)
[2017-10-08] MEDS: Pantoprazole Inj IVP SCH (08:32)
[2017-10-08] MEDS: Ascorbic Acid 500mg tab ORAL SCH (08:32)
[2017-10-08] MEDS: Aspirin Baby 81mg ORAL SCH (08:32)
[2017-10-08] MEDS: Metoprolol Tartrate 50mg tab ORAL SCH ×2 (08:32→17:33)
[2017-10-08] MEDS: Enoxaparin 60mg Inj SUBQ SCH ×2 (08:34→21:08)
--- NOTE | 2017-10-08 09:36 | Pulmonolgy Critical Care Note ---
Critical Care - Asmt/Plan Respiratory: monitor respiratory rate, adjust FIO2, CXR, ABG, weaning trial - after diuresis, other - Continue Decadron, possible extubation later Cardiac: continue to monitor HR/BP, other - lasix 20 IV x 1 Renal: F/U I&O, check electrolytes, other - diurese Infectious Disease: continue antibiotics Gastrointestinal: hold feedings - for possible extubation Endocrine: continue sliding scale insulin Hematologic: monitor H/H Neurologic: PRN Ativan, PRN Morphine Prophylaxis: Protonix, other - LMWH Disposition: keep in ICU Time Spent (Minutes): 40 Notes Reviewed: weight loss consultant, cardio, ID Discussed with: nurses, consultants Critical Care - Objective Last 24 Hour Vital Signs Date Time Temp Pulse Resp B/P (MAP) Pulse Ox O2 Delivery O2 Flow Rate FiO2 10/08/17 09:02 93 10/08/17 09:00 74 20 127/92 99 Mechanical Ventilator 25 10/08/17 08:57 109 30 25 10/08/17 08:32 74 119/56 10/08/17 08:00 25 10/08/17 08:00 98.6 79 19 118/52 100 Mechanical Ventilator 25 98.6 10/08/17 08:00 75 10/08/17 07:32 74 16 25 10/08/17 07:00 74 20 115/50 99 Mechanical Ventilator 25 10/08/17 06:00 75 20 122/56 99 Mechanical Ventilator 25 10/08/17 05:00 98.7 73 19 125/44 99 Mechanical Ventilator 25 98.7 10/08/17 04:58 73 19 25 10/08/17 04:00 25 10/08/17 04:00 74 19 121/73 98 Mechanical Ventilator 25 10/08/17 04:00 72 10/08/17 03:19 70 15 25 10/08/17 03:00 66 19 120/55 98 Mechanical Ventilator 25 10/08/17 02:00 64 19 110/61 98 Mechanical Ventilator 25 10/08/17 01:26 68 16 25 10/08/17 01:00 98.7 74 20 117/52 97 Mechanical Ventilator 25 98.7 10/08/17 00:00 62 10/08/17 00:00 25 10/08/17 00:00 72 19 111/61 99 Mechanical Ventilator 25 10/07/17 23:00 73 19 126/57 97 Mechanical Ventilator 25 10/07/17 22:52 75 21 25 10/07/17 22:00 66 19 113/60 97 Mechanical Ventilator 25 10/07/17 21:09 69 23 25 10/07/17 21:00 65 17 106/63 98 Mechanical Ventilator 25 10/07/17 20:00 62 10/07/17 20:00 25 10/07/17 20:00 99.0 73 18 107/60 99 Mechanical Ventilator 25 99.0 10/07/17 19:11 70 15 25 10/07/17 19:00 65 20 118/55 99 Mechanical Ventilator 25 10/07/17 18:00 68 15 101/61 97 Mechanical Ventilator 25 10/07/17 17:44 71 105/51 10/07/17 17:02 70 15 117/47 98 Mechanical Ventilator 25 10/07/17 16:31 71 18 25 10/07/17 16:00 98.1 71 18 112/54 98 Mechanical Ventilator 25 98.1 10/07/17 16:00 25 10/07/17 16:00 68 10/07/17 15:00 72 17 114/42 99 Mechanical Ventilator 25 10/07/17 14:30 76 20 25 10/07/17 14:00 70 16 115/43 97 Mechanical Ventilator 25 10/07/17 13:00 70 15 115/46 97 Mechanical Ventilator 25 10/07/17 12:22 77 23 25 10/07/17 12:00 25 10/07/17 12:00 99.6 75 22 117/58 97 Mechanical Ventilator 25 99.6 10/07/17 12:00 82 10/07/17 11:00 72 23 112/52 97 Mechanical Ventilator 25 10/07/17 10:30 79 18 25 10/07/17 10:00 75 23 113/52 99 Mechanical Ventilator 25 Status: awake, other - intubated Condition: critical HEENT: atraumatic, normocephalic Lungs: clear - but distant with BiB rales Heart: HR/BP unstable Abdomen: soft, non-tender, active bowel sounds Extremities: no C/C/E Decubiti: location - sacral , stage - 2 Accucheck: 132 Critical Care - Subjective ROS Limited/Unobtainable: Yes ICU Day: 3 Intubation Day: 3 Interval Events: Failed CPAP trial after 1-2 hours for inc RR and tachycardia Was anxious at the time, back on A/C, better today, dayana TF', thin white secretions Condition: improving IV Access: central - Femoral from cod3, peripheral - x2 EKG Rhythm: Atrial Fibrillation FI02: 25 Vent Support Breath Rate: 15 Vent Support Mode: AC Vent Tidal Volume: 600 Sputum Amount: Moderate PEEP: 5.0 PIP: 26 Secretions: small thin Tube Feeding Amount: 20 Residuals: None I&O: Intake and Output 10/07/17 10/08/17 19:00 07:00 Intake Total 1815.667 ml 2045 ml Output Total 535 ml 665 ml Balance 1280.667 ml 1380 ml Free Water 25 ml 75 ml IV Total 1560.667 ml 1760 ml Tube Feeding 10 ml 210 ml Other 220 ml Output Urine Total 535 ml 665 ml # Bowel Movements 3 1 Subjective: No complaints CXR: PVC ET-Tube: 7.5 ET Position: 25 Labs: Laboratory Tests Test 10/07/17 09:40 10/08/17 04:00 Arterial Blood pH 7.441 (7.350-7.450) Arterial Blood Partial Pressure CO2 30.7 mmHg (35.0-45.0) L Arterial Blood Partial Pressure O2 90.9 mmHg (75.0-100.0) Arterial Blood HCO3 20.4 mmol/L (22.0-26.0) L Arterial Blood Oxygen Saturation 97.0 % (92.0-98.0) Arterial Blood Base Excess -2.8 Keith Test Positive White Blood Count 16.9 K/UL (4.8-10.8) H Red Blood Count 3.44 M/UL (4.70-6.10) L Hemoglobin 10.5 G/DL (14.2-18.0) L Hematocrit 32.5 % (42.0-52.0) L Mean Corpuscular Volume 95 FL (80-99) Mean Corpuscular Hemoglobin 30.6 PG (27.0-31.0) Mean Corpuscular Hemoglobin Concent 32.4 G/DL (32.0-36.0) Red Cell Distribution Width 14.2 % (11.6-14.8) Platelet Count 277 K/UL (150-450) Mean Platelet Volume 7.8 FL (6.5-10.1) Neutrophils (%) (Auto) % (45.0-75.0) Lymphocytes (%) (Auto) % (20.0-45.0) Monocytes (%) (Auto) % (1.0-10.0) Eosinophils (%) (Auto) % (0.0-3.0) Basophils (%) (Auto) % (0.0-2.0) Differential Total Cells Counted 100 Neutrophils % (Manual) 89 % (45-75) H Lymphocytes % (Manual) 7 % (20-45) L Monocytes % (Manual) 4 % (1-10) Eosinophils % (Manual) 0 % (0-3) Basophils % (Manual) 0 % (0-2) Band Neutrophils 0 % (0-8) Platelet Estimate Adequate Platelet Morphology Normal Hypochromasia 1+ Anisocytosis 1+ Sodium Level 147 MMOL/L (136-145) H Potassium Level 4.7 MMOL/L (3.5-5.1) Chloride Level 117 MMOL/L (98-107) H Carbon Dioxide Level 21 MMOL/L (21-32) Anion Gap 9 mmol/L (5-15) Blood Urea Nitrogen 43 mg/dL (7-18) H Creatinine 1.0 MG/DL (0.55-1.30) Estimat Glomerular Filtration Rate mL/min (>60) Glucose Level 173 MG/DL (74-106) H Calcium Level 8.4 MG/DL (8.5-10.1) L Magnesium Level 2.2 MG/DL (1.8-2.4) Total Bilirubin 0.7 MG/DL (0.2-1.0) Aspartate Amino Transf (AST/SGOT) 73 U/L (15-37) H Alanine Aminotransferase (ALT/SGPT) 59 U/L (12-78) Alkaline Phosphatase 204 U/L (46-116) H Troponin I 2.417 ng/mL (0.000-0.056) Pro-B-Type Natriuretic Peptide 3568 pg/mL (0-125) H Total Protein 6.3 G/DL (6.4-8.2) L Albumin 1.7 G/DL (3.4-5.0) L Globulin 4.6 g/dL Albumin/Globulin Ratio 0.4 (1.0-2.7) L Zac Driscoll MD Oct 08, 2017 09:36
--- NOTE | 2017-10-08 10:07 | Infectious Diseases Prog Note ---
Assessment/Plan Assessment/Plan A 1. lumbar discitis/osteomyelitis 2. leucocytosis improving 3. hypertension 4. s/p cardiac arrest 5. respiratory failure 6. MRSA, VRE and ESBL colonization 7. Atrial fibrillation P 1. continue iv vancomycin, cefepime 2. will follow up cultures Subjective ROS Limited/Unobtainable: Yes Respiratory: Reports: other - on weaning process Allergies: Coded Allergies: PENICILLINS (Verified Allergy, Unknown, 10/04/17) Objective Vital Signs Last 24 Hour Vital Signs Date Time Temp Pulse Resp B/P (MAP) Pulse Ox O2 Delivery O2 Flow Rate FiO2 10/08/17 09:02 93 10/08/17 09:00 74 20 127/92 99 Mechanical Ventilator 25 10/08/17 08:57 109 30 25 10/08/17 08:32 74 119/56 10/08/17 08:00 25 10/08/17 08:00 98.6 79 19 118/52 100 Mechanical Ventilator 25 98.6 10/08/17 08:00 75 10/08/17 07:32 74 16 25 10/08/17 07:00 74 20 115/50 99 Mechanical Ventilator 25 10/08/17 06:00 75 20 122/56 99 Mechanical Ventilator 25 10/08/17 05:00 98.7 73 19 125/44 99 Mechanical Ventilator 25 98.7 10/08/17 04:58 73 19 25 10/08/17 04:00 25 10/08/17 04:00 74 19 121/73 98 Mechanical Ventilator 25 10/08/17 04:00 72 10/08/17 03:19 70 15 25 10/08/17 03:00 66 19 120/55 98 Mechanical Ventilator 25 10/08/17 02:00 64 19 110/61 98 Mechanical Ventilator 25 10/08/17 01:26 68 16 25 10/08/17 01:00 98.7 74 20 117/52 97 Mechanical Ventilator 25 98.7 10/08/17 00:00 62 10/08/17 00:00 25 10/08/17 00:00 72 19 111/61 99 Mechanical Ventilator 25 10/07/17 23:00 73 19 126/57 97 Mechanical Ventilator 25 10/07/17 22:52 75 21 25 10/07/17 22:00 66 19 113/60 97 Mechanical Ventilator 25 10/07/17 21:09 69 23 25 10/07/17 21:00 65 17 106/63 98 Mechanical Ventilator 25 10/07/17 20:00 62 10/07/17 20:00 25 10/07/17 20:00 99.0 73 18 107/60 99 Mechanical Ventilator 25 99.0 10/07/17 19:11 70 15 25 10/07/17 19:00 65 20 118/55 99 Mechanical Ventilator 25 10/07/17 18:00 68 15 101/61 97 Mechanical Ventilator 25 10/07/17 17:44 71 105/51 10/07/17 17:02 70 15 117/47 98 Mechanical Ventilator 25 10/07/17 16:31 71 18 25 10/07/17 16:00 98.1 71 18 112/54 98 Mechanical Ventilator 25 98.1 10/07/17 16:00 25 10/07/17 16:00 68 10/07/17 15:00 72 17 114/42 99 Mechanical Ventilator 25 10/07/17 14:30 76 20 25 10/07/17 14:00 70 16 115/43 97 Mechanical Ventilator 25 10/07/17 13:00 70 15 115/46 97 Mechanical Ventilator 25 10/07/17 12:22 77 23 25 10/07/17 12:00 25 10/07/17 12:00 99.6 75 22 117/58 97 Mechanical Ventilator 25 99.6 10/07/17 12:00 82 10/07/17 11:00 72 23 112/52 97 Mechanical Ventilator 25 10/07/17 10:30 79 18 25 Height (Feet): 5 Height (Inches): 9.00 Weight (Pounds): 256 General Appearance: other - obese HEENT: other - orally intubated Respiratory/Chest: lungs clear, other - on ventilator Cardiovascular: normal rate Abdomen: soft, non tender Extremities: no edema Neurologic/Psychiatric: alert, responsive Laboratory Tests Test 10/08/17 04:00 White Blood Count 16.9 K/UL (4.8-10.8) H Red Blood Count 3.44 M/UL (4.70-6.10) L Hemoglobin 10.5 G/DL (14.2-18.0) L Hematocrit 32.5 % (42.0-52.0) L Mean Corpuscular Volume 95 FL (80-99) Mean Corpuscular Hemoglobin 30.6 PG (27.0-31.0) Mean Corpuscular Hemoglobin Concent 32.4 G/DL (32.0-36.0) Red Cell Distribution Width 14.2 % (11.6-14.8) Platelet Count 277 K/UL (150-450) Mean Platelet Volume 7.8 FL (6.5-10.1) Neutrophils (%) (Auto) % (45.0-75.0) Lymphocytes (%) (Auto) % (20.0-45.0) Monocytes (%) (Auto) % (1.0-10.0) Eosinophils (%) (Auto) % (0.0-3.0) Basophils (%) (Auto) % (0.0-2.0) Differential Total Cells Counted 100 Neutrophils % (Manual) 89 % (45-75) H Lymphocytes % (Manual) 7 % (20-45) L Monocytes % (Manual) 4 % (1-10) Eosinophils % (Manual) 0 % (0-3) Basophils % (Manual) 0 % (0-2) Band Neutrophils 0 % (0-8) Platelet Estimate Adequate Platelet Morphology Normal Hypochromasia 1+ Anisocytosis 1+ Sodium Level 147 MMOL/L (136-145) H Potassium Level 4.7 MMOL/L (3.5-5.1) Chloride Level 117 MMOL/L (98-107) H Carbon Dioxide Level 21 MMOL/L (21-32) Anion Gap 9 mmol/L (5-15) Blood Urea Nitrogen 43 mg/dL (7-18) H Creatinine 1.0 MG/DL (0.55-1.30) Estimat Glomerular Filtration Rate mL/min (>60) Glucose Level 173 MG/DL (74-106) H Calcium Level 8.4 MG/DL (8.5-10.1) L Magnesium Level 2.2 MG/DL (1.8-2.4) Total Bilirubin 0.7 MG/DL (0.2-1.0) Aspartate Amino Transf (AST/SGOT) 73 U/L (15-37) H Alanine Aminotransferase (ALT/SGPT) 59 U/L (12-78) Alkaline Phosphatase 204 U/L (46-116) H Troponin I 2.417 ng/mL (0.000-0.056) Pro-B-Type Natriuretic Peptide 3568 pg/mL (0-125) H Total Protein 6.3 G/DL (6.4-8.2) L Albumin 1.7 G/DL (3.4-5.0) L Globulin 4.6 g/dL Albumin/Globulin Ratio 0.4 (1.0-2.7) L Current Medications Medications (Trade) Dose Ordered Sig/Usama Route PRN Reason Start Time Stop Time Status Last Admin Dose Admin Ascorbic Acid (Vitamin C) 500 mg DAILY ORAL 10/06/17 09:00 11/04/17 08:59 10/08/17 08:32 Aspirin (ASA) 81 mg DAILY ORAL 10/06/17 11:00 11/05/17 10:59 10/08/17 08:32 Atorvastatin Calcium (Lipitor) 40 mg BEDTIME ORAL 10/06/17 21:00 11/03/17 22:03 10/07/17 20:09 Cefepime HCl 2 gm/ Dextrose 110 ml @ 220 mls/hr Q12HR@0000,1200 IV 10/06/17 12:00 10/13/17 11:59 10/07/17 23:46 Chlorhexidine Gluconate (Rossana-Hex 2%) 1 applic DAILY@2000 TOPIC 10/06/17 20:00 11/05/17 19:59 10/07/17 20:08 Dexamethasone Sodium Phosphate (Decadron 4mg/ml vial) 4 mg EVERY 12 HOURS IVP 10/07/17 11:30 10/09/17 23:00 10/08/17 08:31 Dextrose (Dextrose 50%) 25 ml STAT PRN IV Hypoglycemia 10/07/17 12:00 11/06/17 11:59 Dextrose (Dextrose 50%) 50 ml STAT PRN IV Hypoglycemia 10/07/17 12:00 11/06/17 11:59 Enoxaparin Sodium (Lovenox) 60 mg EVERY 12 HOURS SUBQ 10/06/17 09:00 11/03/17 23:29 10/08/17 08:34 Furosemide (Lasix) 20 mg ONCE IV 10/08/17 09:45 10/08/17 10:45 10/08/17 09:42 Hydromorphone HCl (Dilaudid) 0.5 mg Q4H PRN IVP For Pain 10/06/17 07:45 10/11/17 07:44 Insulin Aspart (NovoLOG) Q6HR SUBQ 10/07/17 18:00 11/06/17 17:59 10/08/17 06:25 Metoprolol Tartrate (Lopressor) 50 mg BID ORAL 10/06/17 09:00 11/03/17 23:29 10/08/17 08:32 Ondansetron HCl (Zofran) 4 mg Q6H PRN IVP Nausea & Vomiting 10/06/17 07:45 11/03/17 07:44 Pantoprazole (Protonix) 40 mg DAILY IVP 10/07/17 09:00 11/06/17 08:59 10/08/17 08:32 Polyethylene Glycol (Miralax) 17 gm DAILY ORAL 10/06/17 09:00 11/04/17 08:59 10/08/17 08:31 Sennosides (Senokot) 1 tab DAILY ORAL 10/06/17 09:00 11/04/17 08:59 10/08/17 08:31 Tamsulosin HCl (Flomax) 0.4 mg BEDTIME ORAL 10/06/17 21:00 11/05/17 20:59 10/07/17 20:09 Vancomycin HCl (Vanco rx to dose) 1 ea DAILY PRN MISC Per rx protocol 10/06/17 09:00 11/03/17 21:44 Vancomycin/Sodium Chloride 250 ml @ 166.667 mls/hr Q12H IVPB 10/06/17 12:00 10/10/17 00:00 10/07/17 23:47 Edin Berger MD Oct 08, 2017 10:07
[2017-10-08] MEDS: Vancomycin 750mg/NS 250ml 250 ML IVPB SCH ×2 (12:00→23:48)
[2017-10-08] MEDS: Cefepime 2gm/D5W 110ml IV SCH ×4 (12:00→23:30)
[2017-10-08] MEDS: Dyna-Hex 2% Top Sol 2oz TOPIC SCH (20:03)
[2017-10-08] MEDS: Tamsulosin 0.4mg cap ORAL SCH (21:07)
[2017-10-08] MEDS: Atorvastatin 20mg tab ORAL SCH (21:07)
[2017-10-09] VITALS (19 sets, daily range): BP systolic 83–125; BP diastolic 47–78
--- NOTE | 2017-10-09 00:31 | Progress Note ---
DATE: 10/08/2017 CARDIOLOGY PROGRESS NOTE SUBJECTIVE: The patient remains in the intensive care unit. Condition remains critical. Prognosis improved. The patient was extubated. He is in no respiratory distress. PHYSICAL EXAMINATION: VITAL SIGNS: Blood pressure 127/92, pulse 74, respiratory rate 20. Monitored rhythm atrial fibrillation. LUNGS: Coarse breath sounds. Few rales. HEART: Irregularly irregular rhythm. Normal S1 and S2. A 1/6 systolic murmur at the base. ABDOMEN: Soft. EXTREMITIES: A 1+ dependent edema. LABORATORY AND DIAGNOSTIC DATA: Echocardiogram reveals slightly increased aortic valve, transaortic valve gradient, no significant regurgitation, normal ejection fraction. White count 16.9 and hemoglobin 10.5. ABG, 7.48, 27, 90. Pro-natriuretic peptide is 3500. Troponin down to 2.4. Sodium is 147, potassium 4.7, bicarbonate 21, BUN 43, and creatinine 1. Magnesium 2.2. Albumin 1.7. IMPRESSION: 1. Acute myocardial infarction status post full arrest. 2. Paroxysmal atrial fibrillation. 3. Degenerative disk disease with immobility. 4. Dehydration. 5. Hypernatremia. 6. Chronic diastolic congestive heart failure. 7. Valvular heart disease status post AVR and MVR. 8. Paroxysmal atrial fibrillation. PLAN: 1. Transition Lovenox to Eliquis. 2. Consider amiodarone to maintain sinus rhythm. 3. Steroid taper. 4. Anti-platelet and anti-lipid therapy. 5. Continue beta-beckie. 6. Monitor respiratory parameters closely. Brijesh Vela M.D. DR: Mauricio JOB#: [id number] CC:
[2017-10-09] MEDS: Hydromorphone 0.5mg/0.5ml inj IVP PRN ×2 (02:19→08:43)
[2017-10-09] MEDS: NovoLOG Insulin Flexpen SUBQ SCH ×5 (06:24→23:51)
[2017-10-09] MEDS ORDERED: Metoprolol 5mg/5ml Inj IVP SCH (06:47)
[2017-10-09 07:22] LABS: HEMATOCRIT 36.5 % (42.0-52.0); HEMOGLOBIN 11.7 G/DL (14.2-18.0); MEAN CORPUSCULAR VOLUME 95 FL (80-99); PLATELET COUNT 346 K/UL (150-450); RED BLOOD COUNT 3.83 M/UL (4.70-6.10); RED CELL DISTRIBUTION WIDTH 14.6 % (11.6-14.8); WHITE BLOOD COUNT 20.8 K/UL (4.8-10.8)
[2017-10-09 07:40] LABS: ALANINE AMINOTRANSFERASE 58 U/L (12-78); ALBUMIN/GLOBULIN RATIO 0.4 (1.0-2.7); ALKALINE PHOSPHATASE 210 U/L (46-116); ANION GAP 9 mmol/L (5-15); ASPARTATE AMINO TRANSFERASE 53 U/L (15-37); BILIRUBIN,TOTAL 0.9 MG/DL (0.2-1.0); BLOOD UREA NITROGEN 36 mg/dL (7-18); CALCIUM 8.7 MG/DL (8.5-10.1); CARBON DIOXIDE 25 MMOL/L (21-32); CHLORIDE 115 MMOL/L (98-107); CREATININE 0.9 MG/DL (0.55-1.30); POTASSIUM 4.1 MMOL/L (3.5-5.1); SODIUM 149 MMOL/L (136-145)
[2017-10-09] MEDS: Sennosides 8.6mg ORAL SCH (08:23)
[2017-10-09] MEDS: Dexamethasone 4mg/ml vial IVP SCH (08:23)
[2017-10-09] MEDS: Metoprolol Tartrate 50mg tab ORAL SCH (08:24)
[2017-10-09] MEDS: Ascorbic Acid 500mg tab ORAL SCH (08:24)
[2017-10-09] MEDS: Miralax 17gm pkt ORAL SCH (08:25)
[2017-10-09] MEDS: Eliquis 2.5mg tablet ORAL SCH ×2 (08:25→17:50)
[2017-10-09] MEDS ORDERED: Aspirin Baby 81mg ONE (08:49)
[2017-10-09] MEDS: Aspirin Baby 81mg ORAL SCH (08:52)
--- NOTE | 2017-10-09 09:45 | General Progress Note ---
Assessment/Plan Problem List: (1) Discitis of lumbar region ICD Codes: M46.46 - Discitis, unspecified, lumbar region SNOMED: 153537252 (2) Cardiac arrest ICD Codes: I46.9 - Cardiac arrest, cause unspecified SNOMED: 942770505 (3) Atrial fibrillation with RVR ICD Codes: I48.91 - Unspecified atrial fibrillation SNOMED: 030626763496843 (4) Ventricular fibrillation ICD Codes: I49.01 - Ventricular fibrillation SNOMED: 72482825 (5) Respiratory failure requiring intubation ICD Codes: J96.90 - Respiratory failure, unspecified, unspecified whether with hypoxia or hypercapnia SNOMED: 781002894 Status: stable, progressing Assessment/Plan resp care o2 follow up labs iv abx follow up cultures dvt/stress ulcer prophylaxis transfer to [facility] for spine eval once out of the icu. Subjective ROS Limited/Unobtainable: No Constitutional: Reports: malaise, weakness HEENT: Reports: no symptoms Cardiovascular: Reports: no symptoms Respiratory: Reports: no symptoms Gastrointestinal/Abdominal: Reports: no symptoms Genitourinary: Reports: no symptoms Neurologic/Psychiatric: Reports: no symptoms Endocrine: Reports: no symptoms Hematologic/Lymphatic: Reports: no symptoms Allergies: Coded Allergies: PENICILLINS (Verified Allergy, Unknown, 10/04/17) All Systems: reviewed and negative except above Subjective extubated. pain better controlled. had svt. given metoprolol iv x 1. HR low 100s. no cp Objective Last 24 Hour Vital Signs Date Time Temp Pulse Resp B/P (MAP) Pulse Ox O2 Delivery O2 Flow Rate FiO2 10/09/17 08:43 97.6 10/09/17 08:24 121 103/80 10/09/17 07:18 Nasal Cannula 2.0 28 10/09/17 07:18 98 Nasal Cannula 2.0 28 10/09/17 07:00 98.0 125 19 93/50 99 Nasal Cannula 2.0 98.0 10/09/17 06:00 122 19 109/78 99 Nasal Cannula 2.0 10/09/17 05:00 116 19 103/57 99 Nasal Cannula 2.0 10/09/17 04:00 112 10/09/17 04:00 98.0 111 15 102/47 99 Nasal Cannula 2.0 98.0 10/09/17 03:34 98.0 10/09/17 03:00 111 15 100/55 100 Nasal Cannula 2.0 10/09/17 02:19 98.0 10/09/17 02:00 110 23 95/47 100 Nasal Cannula 2.0 10/09/17 01:00 110 24 93/59 100 Nasal Cannula 2.0 10/09/17 00:00 100 10/09/17 00:00 98.0 112 23 105/54 99 Nasal Cannula 2.0 98.0 10/08/17 23:00 108 19 89/46 100 Nasal Cannula 2.0 10/08/17 22:00 109 21 96/46 100 Nasal Cannula 2.0 10/08/17 21:48 98.6 10/08/17 21:00 109 25 101/56 99 Nasal Cannula 2.0 10/08/17 20:04 98.6 10/08/17 20:00 98.1 113 25 94/56 100 Nasal Cannula 2.0 98.1 10/08/17 20:00 119 10/08/17 19:30 103 22 Nasal Cannula 2.0 10/08/17 19:30 Nasal Cannula 2.0 28 10/08/17 19:30 100 Nasal Cannula 2.0 10/08/17 19:00 79 19 99/54 99 Nasal Cannula 2.0 10/08/17 18:00 80 20 100/50 99 Nasal Cannula 2.0 10/08/17 17:33 79 104/61 10/08/17 17:00 73 18 99/61 99 Nasal Cannula 2.0 10/08/17 16:00 83 10/08/17 16:00 98.6 75 19 107/69 100 Nasal Cannula 2.0 98.6 10/08/17 15:00 77 19 102/63 99 Nasal Cannula 2.0 10/08/17 14:46 98.6 10/08/17 14:00 79 20 104/61 99 Nasal Cannula 2.0 10/08/17 13:00 74 20 119/87 99 Nasal Cannula 2.0 10/08/17 12:16 Nasal Cannula 2.0 28 10/08/17 12:15 100 Nasal Cannula 2.0 28 10/08/17 12:08 Nasal Cannula 2.0 28 10/08/17 12:00 81 10/08/17 12:00 98.6 75 19 110/69 100 Nasal Cannula 2.0 98.6 10/08/17 11:00 74 20 109/92 99 Nasal Cannula 2.0 10/08/17 10:41 102 23 25 10/08/17 10:00 72 18 122/80 99 Mechanical Ventilator 25 Intake and Output 10/08/17 10/09/17 19:00 07:00 Intake Total 400.000 ml 635.000 ml Output Total 1580 ml 1150 ml Balance -1180.000 ml -515.000 ml Intake Oral 50 ml IV Total 360.000 ml 585.000 ml Tube Feeding 40 ml Output Urine Total 1580 ml 1150 ml # Bowel Movements 1 Laboratory Tests 10/08/17 11:07: Arterial Blood pH 7.488H, Arterial Blood Partial Pressure CO2 27.2L, Arterial Blood Partial Pressure O2 90.5, Arterial Blood HCO3 20.2L, Arterial Blood Oxygen Saturation 96.4, Arterial Blood Base Excess -2.1, Keith Test Positive 10/08/17 11:25: Vancomycin Level Trough 14.8H 10/09/17 06:19: White Blood Count 20.8H, Red Blood Count 3.83L, Hemoglobin 11.7L, Hematocrit 36.5L, Mean Corpuscular Volume 95, Mean Corpuscular Hemoglobin 30.6, Mean Corpuscular Hemoglobin Concent 32.1, Red Cell Distribution Width 14.6, Platelet Count 346, Mean Platelet Volume 7.4, Neutrophils (%) (Auto) , Lymphocytes (%) ( Auto) , Monocytes (%) (Auto) , Eosinophils (%) (Auto) , Basophils (%) (Auto) , Neutrophils % (Manual) [Pending], Lymphocytes % (Manual) [Pending], Platelet Estimate [Pending], Platelet Morphology [Pending], Sodium Level 149H, Potassium Level 4.1, Chloride Level 115H, Carbon Dioxide Level 25, Anion Gap 9, Blood Urea Nitrogen 36H, Creatinine 0.9, Estimat Glomerular Filtration Rate , Glucose Level 146H, Calcium Level 8.7, Total Bilirubin 0.9, Aspartate Amino Transf (AST/ SGOT) 53H, Alanine Aminotransferase (ALT/SGPT) 58, Alkaline Phosphatase 210H, Troponin I 1.504H, Total Protein 6.7, Albumin 2.0L, Globulin 4.7, Albumin/ Globulin Ratio 0.4L Height (Feet): 5 Height (Inches): 9.00 Weight (Pounds): 254 Objective General Appearance: WD/WN, extubated, a and o x3 Neck: supple Cardiovascular: normal rate, regular rhythm Respiratory/Chest: chest wall non-tender, lungs clear, normal breath sounds, no respiratory distress Abdomen: normal bowel sounds, non tender, soft, no organomegaly Edema: mild edema Neurologic: alert, responsive Jamin Mendoza MD Oct 09, 2017 09:45
[2017-10-09] MEDS: Vancomycin 750mg/NS 250ml 250 ML IVPB SCH (12:58)
[2017-10-09] MEDS: Cefepime 2gm/D5W 110ml IV SCH ×2 (12:58)
--- NOTE | 2017-10-09 13:03 | Infectious Diseases Prog Note ---
Assessment/Plan Assessment/Plan A 1. lumbar discitis/osteomyelitis 2. leucocytosis 3. hypertension 4. s/p cardiac arrest 5. respiratory failure RESOLVED 6. MRSA, VRE and ESBL colonization 7. Atrial fibrillation P 1. continue iv vancomycin, cefepime 2. will follow up cultures Subjective ROS Limited/Unobtainable: No Constitutional: Reports: no symptoms Respiratory: Reports: no symptoms, other - extubated yesterday Cardiovascular: Reports: no symptoms Gastrointestinal/Abdominal: Reports: no symptoms Genitourinary: Reports: no symptoms Allergies: Coded Allergies: PENICILLINS (Verified Allergy, Unknown, 10/04/17) Objective Vital Signs Last 24 Hour Vital Signs Date Time Temp Pulse Resp B/P (MAP) Pulse Ox O2 Delivery O2 Flow Rate FiO2 10/09/17 12:00 97.2 109 19 100/77 100 Nasal Cannula 2.0 97.2 10/09/17 12:00 109 10/09/17 11:00 95 16 101/66 100 Nasal Cannula 2.0 10/09/17 10:02 121 125/75 10/09/17 10:00 102 16 125/75 100 Nasal Cannula 2.0 10/09/17 09:13 97.2 10/09/17 09:00 106 19 118/70 100 Nasal Cannula 2.0 10/09/17 08:43 97.6 10/09/17 08:24 121 103/80 10/09/17 08:00 138 10/09/17 08:00 126 19 83/67 98 Nasal Cannula 2.0 10/09/17 07:18 Nasal Cannula 2.0 28 10/09/17 07:18 98 Nasal Cannula 2.0 28 10/09/17 07:00 98.0 125 19 93/50 99 Nasal Cannula 2.0 98.0 10/09/17 06:00 122 19 109/78 99 Nasal Cannula 2.0 10/09/17 05:00 116 19 103/57 99 Nasal Cannula 2.0 10/09/17 04:00 112 10/09/17 04:00 98.0 111 15 102/47 99 Nasal Cannula 2.0 98.0 10/09/17 03:00 111 15 100/55 100 Nasal Cannula 2.0 10/09/17 02:19 98.0 10/09/17 02:00 110 23 95/47 100 Nasal Cannula 2.0 10/09/17 01:00 110 24 93/59 100 Nasal Cannula 2.0 10/09/17 00:00 100 10/09/17 00:00 98.0 112 23 105/54 99 Nasal Cannula 2.0 98.0 10/08/17 23:00 108 19 89/46 100 Nasal Cannula 2.0 10/08/17 22:00 109 21 96/46 100 Nasal Cannula 2.0 10/08/17 21:48 98.6 10/08/17 21:00 109 25 101/56 99 Nasal Cannula 2.0 10/08/17 20:04 98.6 10/08/17 20:00 98.1 113 25 94/56 100 Nasal Cannula 2.0 98.1 10/08/17 20:00 119 10/08/17 19:30 103 22 Nasal Cannula 2.0 28 10/08/17 19:30 Nasal Cannula 2.0 28 10/08/17 19:30 100 Nasal Cannula 2.0 28 10/08/17 19:00 79 19 99/54 99 Nasal Cannula 2.0 10/08/17 18:00 80 20 100/50 99 Nasal Cannula 2.0 10/08/17 17:33 79 104/61 10/08/17 17:00 73 18 99/61 99 Nasal Cannula 2.0 10/08/17 16:00 83 10/08/17 16:00 98.6 75 19 107/69 100 Nasal Cannula 2.0 98.6 10/08/17 15:00 77 19 102/63 99 Nasal Cannula 2.0 10/08/17 14:46 98.6 10/08/17 14:00 79 20 104/61 99 Nasal Cannula 2.0 Height (Feet): 5 Height (Inches): 9.00 Weight (Pounds): 253 General Appearance: no acute distress HEENT: mucous membranes moist Respiratory/Chest: lungs clear, other - o2 BY NASAL CANNULA Cardiovascular: tachycardia Abdomen: soft, non tender Extremities: no edema Neurologic/Psychiatric: alert, oriented x 3, responsive Microbiology Date/Time Source Procedure Growth Status 10/07/17 10:00 Blood Blood Culture - Preliminary NO GROWTH AFTER 24 HOURS Resulted 10/07/17 09:45 Blood Blood Culture - Preliminary NO GROWTH AFTER 24 HOURS Resulted Laboratory Tests Test 10/09/17 06:19 White Blood Count 20.8 K/UL (4.8-10.8) H Red Blood Count 3.83 M/UL (4.70-6.10) L Hemoglobin 11.7 G/DL (14.2-18.0) L Hematocrit 36.5 % (42.0-52.0) L Mean Corpuscular Volume 95 FL (80-99) Mean Corpuscular Hemoglobin 30.6 PG (27.0-31.0) Mean Corpuscular Hemoglobin Concent 32.1 G/DL (32.0-36.0) Red Cell Distribution Width 14.6 % (11.6-14.8) Platelet Count 346 K/UL (150-450) Mean Platelet Volume 7.4 FL (6.5-10.1) Neutrophils (%) (Auto) % (45.0-75.0) Lymphocytes (%) (Auto) % (20.0-45.0) Monocytes (%) (Auto) % (1.0-10.0) Eosinophils (%) (Auto) % (0.0-3.0) Basophils (%) (Auto) % (0.0-2.0) Differential Total Cells Counted 100 Neutrophils % (Manual) 90 % (45-75) H Lymphocytes % (Manual) 2 % (20-45) L Monocytes % (Manual) 7 % (1-10) Eosinophils % (Manual) 0 % (0-3) Basophils % (Manual) 0 % (0-2) Metamyelocytes % 1 % (0-0) H Band Neutrophils 0 % (0-8) Platelet Estimate Adequate Platelet Morphology Normal Red Blood Cell Morphology Normal Sodium Level 149 MMOL/L (136-145) H Potassium Level 4.1 MMOL/L (3.5-5.1) Chloride Level 115 MMOL/L (98-107) H Carbon Dioxide Level 25 MMOL/L (21-32) Anion Gap 9 mmol/L (5-15) Blood Urea Nitrogen 36 mg/dL (7-18) H Creatinine 0.9 MG/DL (0.55-1.30) Estimat Glomerular Filtration Rate mL/min (>60) Glucose Level 146 MG/DL (74-106) H Calcium Level 8.7 MG/DL (8.5-10.1) Total Bilirubin 0.9 MG/DL (0.2-1.0) Aspartate Amino Transf (AST/SGOT) 53 U/L (15-37) H Alanine Aminotransferase (ALT/SGPT) 58 U/L (12-78) Alkaline Phosphatase 210 U/L (46-116) H Troponin I 1.504 ng/mL (0.000-0.056) Total Protein 6.7 G/DL (6.4-8.2) Albumin 2.0 G/DL (3.4-5.0) L Globulin 4.7 g/dL Albumin/Globulin Ratio 0.4 (1.0-2.7) L Current Medications Medications (Trade) Dose Ordered Sig/Usama Route PRN Reason Start Time Stop Time Status Last Admin Dose Admin Acetaminophen (Tylenol) 650 mg Q4H PRN ORAL Mild Pain/Temp > 100.5 10/08/17 14:30 11/07/17 14:29 10/08/17 20:04 Apixaban (Eliquis) 5 mg BID ORAL 10/09/17 09:00 11/08/17 08:59 10/09/17 08:25 Ascorbic Acid (Vitamin C) 500 mg DAILY ORAL 10/06/17 09:00 11/04/17 08:59 10/09/17 08:24 Aspirin (ASA) 81 mg DAILY ORAL 10/06/17 11:00 11/05/17 10:59 10/09/17 08:52 Atorvastatin Calcium (Lipitor) 40 mg BEDTIME ORAL 10/06/17 21:00 11/03/17 22:03 10/08/17 21:07 Cefepime HCl 2 gm/ Dextrose 110 ml @ 220 mls/hr Q12HR@0000,1200 IV 10/06/17 12:00 10/13/17 11:59 10/09/17 12:58 Dexamethasone Sodium Phosphate (Decadron 4mg/ml vial) 4 mg EVERY 12 HOURS IVP 10/07/17 11:30 10/09/17 23:00 10/09/17 08:23 Dextrose (Dextrose 50%) 25 ml STAT PRN IV Hypoglycemia 10/07/17 12:00 11/06/17 11:59 Dextrose (Dextrose 50%) 50 ml STAT PRN IV Hypoglycemia 10/07/17 12:00 11/06/17 11:59 Hydromorphone HCl (Dilaudid) 0.5 mg Q4H PRN IVP For Pain 10/06/17 07:45 10/11/17 07:44 10/09/17 08:43 Insulin Aspart (NovoLOG) Q6HR SUBQ 10/07/17 18:00 11/06/17 17:59 10/09/17 06:24 Metoprolol Tartrate (Lopressor) 50 mg Q12HR ORAL 10/09/17 21:00 11/05/17 08:59 Ondansetron HCl (Zofran) 4 mg Q6H PRN IVP Nausea & Vomiting 10/06/17 07:45 11/03/17 07:44 10/08/17 23:49 Pantoprazole (Protonix) 40 mg DAILY ORAL 10/09/17 09:00 11/08/17 08:59 10/09/17 08:23 Polyethylene Glycol (Miralax) 17 gm DAILY ORAL 10/06/17 09:00 11/04/17 08:59 10/09/17 08:25 Sennosides (Senokot) 1 tab DAILY ORAL 10/06/17 09:00 11/04/17 08:59 10/09/17 08:23 Sodium Chloride 1,000 ml @ 75 mls/hr [id number] IV 10/08/17 23:30 11/07/17 23:29 10/08/17 23:47 Tamsulosin HCl (Flomax) 0.4 mg BEDTIME ORAL 10/06/17 21:00 11/05/17 20:59 10/08/17 21:07 Vancomycin HCl (Vanco rx to dose) 1 ea DAILY PRN MISC Per rx protocol 10/06/17 09:00 11/03/17 21:44 Vancomycin/Sodium Chloride 250 ml @ 166.667 mls/hr Q12H IVPB 10/06/17 12:00 10/10/17 00:00 10/09/17 12:58 Edin Berger MD Oct 09, 2017 13:03
[2017-10-09] MEDS ORDERED: Hydromorphone 0.5mg/0.5ml inj IVP PRN (18:00)
--- NOTE | 2017-10-09 19:38 | Pulmonology Progress Note ---
Assessment/Plan Problems: (1) Respiratory failure requiring intubation (2) Ventricular fibrillation (3) Cardiac arrest (4) Renal insufficiency (5) Dyspnea (6) Discitis of lumbar region (7) Atrial fibrillation with RVR Assessment/Plan Optimize pulmonary hygiene/mobilize as tolerated PRN O2 Abx per ID Monitor volumes, D/C IVF Aspiration precautions Pain control/supportive care DVT Px: Eliquis F/U cards recs Possible transfer to [facility] for spine evaluation FC Subjective Allergies: Coded Allergies: PENICILLINS (Verified Allergy, Unknown, 10/04/17) Subjective AFVSS, stable O2 needs, transferred out of ICU No SOB, no cough, no CP, no F/C, + back pain Objective Last 24 Hour Vital Signs Date Time Temp Pulse Resp B/P (MAP) Pulse Ox O2 Delivery O2 Flow Rate FiO2 10/09/17 17:00 97.8 104 19 110/66 100 Nasal Cannula 2.0 97.8 10/09/17 16:00 97.4 109 19 101/64 100 Nasal Cannula 2.0 97.4 10/09/17 16:00 101 10/09/17 15:00 105 16 95/53 100 Nasal Cannula 2.0 10/09/17 14:00 100 16 101/67 100 Nasal Cannula 2.0 10/09/17 13:00 95 16 98/55 100 Nasal Cannula 2.0 10/09/17 12:00 97.2 109 19 100/77 100 Nasal Cannula 2.0 97.2 10/09/17 12:00 109 10/09/17 11:00 95 16 101/66 100 Nasal Cannula 2.0 10/09/17 10:02 121 125/75 10/09/17 10:00 102 16 125/75 100 Nasal Cannula 2.0 10/09/17 09:13 97.2 10/09/17 09:00 106 19 118/70 100 Nasal Cannula 2.0 10/09/17 08:43 97.6 10/09/17 08:24 121 103/80 10/09/17 08:00 138 10/09/17 08:00 126 19 83/67 98 Nasal Cannula 2.0 10/09/17 07:18 Nasal Cannula 2.0 28 10/09/17 07:18 98 Nasal Cannula 2.0 28 10/09/17 07:00 98.0 125 19 93/50 99 Nasal Cannula 2.0 98.0 10/09/17 06:00 122 19 109/78 99 Nasal Cannula 2.0 10/09/17 05:00 116 19 103/57 99 Nasal Cannula 2.0 10/09/17 04:00 112 10/09/17 04:00 98.0 111 15 102/47 99 Nasal Cannula 2.0 98.0 10/09/17 03:00 111 15 100/55 100 Nasal Cannula 2.0 10/09/17 02:19 98.0 10/09/17 02:00 110 23 95/47 100 Nasal Cannula 2.0 10/09/17 01:00 110 24 93/59 100 Nasal Cannula 2.0 10/09/17 00:00 100 10/09/17 00:00 98.0 112 23 105/54 99 Nasal Cannula 2.0 98.0 10/08/17 23:00 108 19 89/46 100 Nasal Cannula 2.0 10/08/17 22:00 109 21 96/46 100 Nasal Cannula 2.0 10/08/17 21:48 98.6 10/08/17 21:00 109 25 101/56 99 Nasal Cannula 2.0 10/08/17 20:04 98.6 10/08/17 20:00 98.1 113 25 94/56 100 Nasal Cannula 2.0 98.1 10/08/17 20:00 119 Intake and Output 10/08/17 10/09/17 19:00 07:00 Intake Total 400.000 ml 635.000 ml Output Total 1580 ml 1150 ml Balance -1180.000 ml -515.000 ml Intake Oral 50 ml IV Total 360.000 ml 585.000 ml Tube Feeding 40 ml Output Urine Total 1580 ml 1150 ml # Bowel Movements 1 General Appearance: no acute distress, other - obese male HEENT: normocephalic, atraumatic, anicteric, mucous membranes moist Respiratory/Chest: chest wall non-tender, lungs clear - but decreased @ bases, normal breath sounds, no respiratory distress, no accessory muscle use Cardiovascular: irregularly irregular Abdomen: normal bowel sounds, soft, non tender, no organomegaly, non distended , no mass Extremities: no cyanosis, no clubbing, no edema Microbiology Date/Time Source Procedure Growth Status 10/07/17 10:00 Blood Blood Culture - Preliminary NO GROWTH AFTER 24 HOURS Resulted 10/07/17 09:45 Blood Blood Culture - Preliminary NO GROWTH AFTER 24 HOURS Resulted Laboratory Tests 10/09/17 06:19: White Blood Count 20.8H, Red Blood Count 3.83L, Hemoglobin 11.7L, Hematocrit 36.5L, Mean Corpuscular Volume 95, Mean Corpuscular Hemoglobin 30.6, Mean Corpuscular Hemoglobin Concent 32.1, Red Cell Distribution Width 14.6, Platelet Count 346, Mean Platelet Volume 7.4, Neutrophils (%) (Auto) , Lymphocytes (%) ( Auto) , Monocytes (%) (Auto) , Eosinophils (%) (Auto) , Basophils (%) (Auto) , Differential Total Cells Counted 100, Neutrophils % (Manual) 90H, Lymphocytes % (Manual) 2L, Monocytes % (Manual) 7, Eosinophils % (Manual) 0, Basophils % ( Manual) 0, Metamyelocytes % 1H, Band Neutrophils 0, Platelet Estimate Adequate, Platelet Morphology Normal, Red Blood Cell Morphology Normal, Sodium Level 149H , Potassium Level 4.1, Chloride Level 115H, Carbon Dioxide Level 25, Anion Gap 9 , Blood Urea Nitrogen 36H, Creatinine 0.9, Estimat Glomerular Filtration Rate , Glucose Level 146H, Calcium Level 8.7, Total Bilirubin 0.9, Aspartate Amino Transf (AST/SGOT) 53H, Alanine Aminotransferase (ALT/SGPT) 58, Alkaline Phosphatase 210H, Troponin I 1.504H, Total Protein 6.7, Albumin 2.0L, Globulin 4.7, Albumin/Globulin Ratio 0.4L Current Medications Medications (Trade) Dose Ordered Sig/Usama Route PRN Reason Start Time Stop Time Status Last Admin Dose Admin Acetaminophen (Tylenol) 650 mg Q4H PRN ORAL Mild Pain/Temp > 100.5 10/09/17 18:30 11/07/17 14:29 Apixaban (Eliquis) 5 mg BID ORAL 10/10/17 09:00 11/09/17 08:59 Ascorbic Acid (Vitamin C) 500 mg DAILY ORAL 10/10/17 09:00 11/04/17 08:59 Aspirin (ASA) 81 mg DAILY ORAL 10/10/17 09:00 11/05/17 08:59 Atorvastatin Calcium (Lipitor) 40 mg BEDTIME ORAL 10/09/17 21:00 11/03/17 22:03 Cefepime HCl 2 gm/ Dextrose 110 ml @ 220 mls/hr Q12HR@0000,1200 IV 10/10/17 00:00 10/13/17 11:59 Dexamethasone Sodium Phosphate (Decadron 4mg/ml vial) 4 mg EVERY 12 HOURS IVP 10/09/17 21:00 10/09/17 23:00 Dextrose (Dextrose 50%) 25 ml STAT PRN IV Hypoglycemia 10/09/17 18:00 11/08/17 17:59 Dextrose (Dextrose 50%) 50 ml STAT PRN IV Hypoglycemia 10/09/17 18:00 11/08/17 17:59 Hydromorphone HCl (Dilaudid) 0.5 mg Q4H PRN IVP For Pain 10/09/17 18:00 10/11/17 17:59 Insulin Aspart (NovoLOG) Q6HR SUBQ 10/09/17 18:00 11/06/17 17:59 Metoprolol Tartrate (Lopressor) 50 mg Q12HR ORAL 10/09/17 21:00 11/05/17 08:59 Ondansetron HCl (Zofran) 4 mg Q6H PRN IVP Nausea & Vomiting 10/09/17 18:00 11/03/17 17:59 Pantoprazole (Protonix) 40 mg DAILY ORAL 10/10/17 09:00 11/08/17 08:59 Polyethylene Glycol (Miralax) 17 gm DAILY ORAL 10/10/17 09:00 11/04/17 08:59 Sennosides (Senokot) 1 tab DAILY ORAL 10/10/17 09:00 11/04/17 08:59 Sodium Chloride 1,000 ml @ 75 mls/hr [id number] IV 10/09/17 18:00 11/07/17 23:29 10/09/17 18:10 Tamsulosin HCl (Flomax) 0.4 mg BEDTIME ORAL 10/09/17 21:00 11/05/17 20:59 Vancomycin HCl (Vanco rx to dose) 1 ea DAILY PRN MISC Per rx protocol 10/10/17 09:00 11/03/17 21:44 Vancomycin/Sodium Chloride 250 ml @ 166.667 mls/hr Q12H IVPB 10/10/17 00:00 10/13/17 12:00 Zac Driscoll MD Oct 09, 2017 19:37
[2017-10-09] MEDS: Tamsulosin 0.4mg cap ORAL SCH (20:45)
[2017-10-09] MEDS: Atorvastatin 20mg tab ORAL SCH (20:46)
[2017-10-09] MEDS ORDERED: Metoprolol Tartrate 50mg tab ORAL SCH ×2 (21:00)
[2017-10-09] MEDS ORDERED: Dexamethasone 4mg/ml vial IVP SCH ×2 (21:00)
[2017-10-09] MEDS: Cefepime HCl 2 GM in D5W 110 ML IV SCH (23:50)
[2017-10-10] VITALS: BP 106/56
[2017-10-10] MEDS ORDERED: Vancomycin 750mg/NS 250ml 250 ML IVPB SCH
--- NOTE | 2017-10-10 01:00 | Progress Note ---
DATE: 10/09/2017 CARDIOLOGY PROGRESS NOTE SUBJECTIVE: The patient has no appetite. Intake is very poor. He has back pain. No chest pain. No shortness of breath. OBJECTIVE: VITAL SIGNS: Blood pressure 110/66, pulse 104, respiratory rate 19 and afebrile. GENERAL: Obese. NECK: Jugular venous pressure cannot be assessed. LUNGS: With diminished breath sounds. CARDIAC: Irregularly . Normal S1 and S2. A 1/6 systolic murmur at apex. ABDOMEN: Obese. EXTREMITIES: With trace edema. LABORATORY AND DIAGNOSTIC DATA: White count 20 and hemoglobin 11.7. Sodium 149, potassium 4.1, chloride 115, bicarbonate 25, BUN 36 and creatinine 0.9. Troponin down to 1.5. Glucose 146. Albumin 2. IMPRESSION: 1. Acute myocardial infarction. 2. Status post cardiopulmonary arrest. 3. Status post respiratory failure. 4. Paroxysmal atrial fibrillation. 5. Lumbosacral diskitis. 6. Severe protein-calorie malnutrition. PLAN: 1. Protein supplement. 2. Titrate anti-failure and antianginal regimen. 3. Continue full anticoagulation for cardioembolic prophylaxis. 4. Check lipid panel. 5. surgery. 6. The patient will require assessment of coronary anatomy. Brijesh Vela M.D. DR: BEKA JOB#: [id number] CC:
[2017-10-10 04:00] VITALS: BP 113/62
[2017-10-10 05:07] LABS: HEMOGLOBIN 11.6 G/DL (14.2-18.0); MEAN CORPUSCULAR VOLUME 95 FL (80-99); PLATELET COUNT 333 K/UL (150-450); RED BLOOD COUNT 3.67 M/UL (4.70-6.10); RED CELL DISTRIBUTION WIDTH 14.9 % (11.6-14.8); WHITE BLOOD COUNT 18.3 K/UL (4.8-10.8)
[2017-10-10 05:25] LABS: ALANINE AMINOTRANSFERASE 52 U/L (12-78); ALBUMIN/GLOBULIN RATIO 0.5 (1.0-2.7); ALKALINE PHOSPHATASE 199 U/L (46-116); ANION GAP 6 mmol/L (5-15); ASPARTATE AMINO TRANSFERASE 45 U/L (15-37); BILIRUBIN,TOTAL 0.8 MG/DL (0.2-1.0); BLOOD UREA NITROGEN 32 mg/dL (7-18); CALCIUM 8.5 MG/DL (8.5-10.1); CARBON DIOXIDE 25 MMOL/L (21-32); CHLORIDE 114 MMOL/L (98-107); CREATININE 0.9 MG/DL (0.55-1.30); POTASSIUM 4.4 MMOL/L (3.5-5.1); SODIUM 145 MMOL/L (136-145)
[2017-10-10 05:28] LABS: CHOLESTEROL 96 MG/DL (< 200); HDL CHOLESTEROL 24 MG/DL (40-60); TRIGLYCERIDES 112 MG/DL (30-150)
[2017-10-10] MEDS: Metoprolol Tartrate 50mg tab ORAL SCH ×3 (06:02→22:15)
[2017-10-10] MEDS: NovoLOG Insulin Flexpen SUBQ SCH ×3 (06:04→18:46)
[2017-10-10 08:00] VITALS: BP 117/63
[2017-10-10] MEDS ORDERED: Aspirin Baby 81mg ORAL SCH (09:00)
[2017-10-10] MEDS: Aspirin Baby 81mg ORAL SCH (10:43)
[2017-10-10] MEDS: Miralax 17gm pkt ORAL SCH (10:43)
[2017-10-10] MEDS: Ascorbic Acid 500mg tab ORAL SCH (10:43)
[2017-10-10] MEDS: Sennosides 8.6mg ORAL SCH (10:49)
[2017-10-10] MEDS: Eliquis 2.5mg tablet ORAL SCH ×2 (10:49→18:30)
--- NOTE | 2017-10-10 11:35 | Infectious Diseases Prog Note ---
Assessment/Plan Assessment/Plan antibiotics : vancomycin iv, cefepime A 1. lumbar discitis 2. leucocytosis improving 3. hypertension 4. shock resolved 5. respiratory failure resolved P 1. continue iv vancomycin, cefepime 2. will follow up cultures 3. [facility] pending Subjective Constitutional: Denies: fever, chills Respiratory: Denies: shortness of breath, dry cough Gastrointestinal/Abdominal: Denies: nausea, vomiting, diarrhea Musculoskeletal: Reports: pain Allergies: Coded Allergies: PENICILLINS (Verified Allergy, Unknown, 10/04/17) Objective Vital Signs Last 24 Hour Vital Signs Date Time Temp Pulse Resp B/P (MAP) Pulse Ox O2 Delivery O2 Flow Rate FiO2 10/10/17 06:02 100 135/70 10/10/17 04:00 97.6 109 20 113/62 98 Nasal Cannula 2.0 97.6 10/10/17 04:00 111 10/10/17 00:00 97.7 100 24 106/56 98 Nasal Cannula 2.0 97.7 10/10/17 00:00 97 10/09/17 20:47 96 124/66 10/09/17 20:00 98.1 96 24 124/66 99 Nasal Cannula 2.0 98.1 10/09/17 19:21 122 10/09/17 17:00 97.8 104 19 110/66 100 Nasal Cannula 2.0 97.8 10/09/17 16:00 97.4 109 19 101/64 100 Nasal Cannula 2.0 97.4 10/09/17 16:00 101 10/09/17 15:00 105 16 95/53 100 Nasal Cannula 2.0 10/09/17 14:00 100 16 101/67 100 Nasal Cannula 2.0 10/09/17 13:00 95 16 98/55 100 Nasal Cannula 2.0 10/09/17 12:00 97.2 109 19 100/77 100 Nasal Cannula 2.0 97.2 10/09/17 12:00 109 Height (Feet): 5 Height (Inches): 9.00 Weight (Pounds): 254 Respiratory/Chest: lungs clear Cardiovascular: normal rate, regular rhythm, no gallop/murmur Abdomen: soft, non tender Extremities: no edema Laboratory Tests Test 10/10/17 03:25 White Blood Count 18.3 K/UL (4.8-10.8) H Red Blood Count 3.67 M/UL (4.70-6.10) L Hemoglobin 11.6 G/DL (14.2-18.0) L Hematocrit 35.0 % (42.0-52.0) L Mean Corpuscular Volume 95 FL (80-99) Mean Corpuscular Hemoglobin 31.6 PG (27.0-31.0) H Mean Corpuscular Hemoglobin Concent 33.2 G/DL (32.0-36.0) Red Cell Distribution Width 14.9 % (11.6-14.8) H Platelet Count 333 K/UL (150-450) Mean Platelet Volume 7.3 FL (6.5-10.1) Neutrophils (%) (Auto) % (45.0-75.0) Lymphocytes (%) (Auto) % (20.0-45.0) Monocytes (%) (Auto) % (1.0-10.0) Eosinophils (%) (Auto) % (0.0-3.0) Basophils (%) (Auto) % (0.0-2.0) Differential Total Cells Counted 100 Neutrophils % (Manual) 94 % (45-75) H Lymphocytes % (Manual) 3 % (20-45) L Monocytes % (Manual) 3 % (1-10) Eosinophils % (Manual) 0 % (0-3) Basophils % (Manual) 0 % (0-2) Band Neutrophils 0 % (0-8) Platelet Estimate Adequate Platelet Morphology Normal Anisocytosis 1+ Sodium Level 145 MMOL/L (136-145) Potassium Level 4.4 MMOL/L (3.5-5.1) Chloride Level 114 MMOL/L (98-107) H Carbon Dioxide Level 25 MMOL/L (21-32) Anion Gap 6 mmol/L (5-15) Blood Urea Nitrogen 32 mg/dL (7-18) H Creatinine 0.9 MG/DL (0.55-1.30) Estimat Glomerular Filtration Rate mL/min (>60) Glucose Level 148 MG/DL (74-106) H Calcium Level 8.5 MG/DL (8.5-10.1) Magnesium Level 2.0 MG/DL (1.8-2.4) Total Bilirubin 0.8 MG/DL (0.2-1.0) Aspartate Amino Transf (AST/SGOT) 45 U/L (15-37) H Alanine Aminotransferase (ALT/SGPT) 52 U/L (12-78) Alkaline Phosphatase 199 U/L (46-116) H Troponin I 1.243 ng/mL (0.000-0.056) Total Protein 6.4 G/DL (6.4-8.2) Albumin 2.0 G/DL (3.4-5.0) L Globulin 4.4 g/dL Albumin/Globulin Ratio 0.5 (1.0-2.7) L Triglycerides Level 112 MG/DL (30-150) Cholesterol Level 96 MG/DL (< 200) LDL Cholesterol 68 mg/dL (<100) HDL Cholesterol 24 MG/DL (40-60) L Cholesterol/HDL Ratio 4.0 (3.3-4.4) Current Medications Medications (Trade) Dose Ordered Sig/Usama Route PRN Reason Start Time Stop Time Status Last Admin Dose Admin Acetaminophen (Tylenol) 650 mg Q4H PRN ORAL Mild Pain/Temp > 100.5 10/09/17 18:30 11/07/17 14:29 10/10/17 10:51 Apixaban (Eliquis) 5 mg BID ORAL 10/10/17 09:00 11/09/17 08:59 10/10/17 10:49 Ascorbic Acid (Vitamin C) 500 mg DAILY ORAL 10/10/17 09:00 11/04/17 08:59 10/10/17 10:43 Aspirin (ASA) 81 mg DAILY ORAL 10/10/17 09:00 11/05/17 08:59 10/10/17 10:43 Atorvastatin Calcium (Lipitor) 40 mg BEDTIME ORAL 10/09/17 21:00 11/03/17 22:03 10/09/17 20:46 Cefepime HCl 2 gm/ Dextrose 110 ml @ 220 mls/hr Q12HR@0000,1200 IV 10/10/17 00:00 10/13/17 11:59 10/09/17 23:50 Dextrose 1,000 ml @ 100 mls/hr Q10H IV 10/10/17 00:15 11/09/17 00:14 10/10/17 00:36 Dextrose (Dextrose 50%) 25 ml STAT PRN IV Hypoglycemia 10/09/17 18:00 11/08/17 17:59 Dextrose (Dextrose 50%) 50 ml STAT PRN IV Hypoglycemia 10/09/17 18:00 11/08/17 17:59 Hydromorphone HCl (Dilaudid) 0.5 mg Q4H PRN IVP For Pain 10/09/17 18:00 10/11/17 17:59 Insulin Aspart (NovoLOG) Q6HR SUBQ 10/09/17 18:00 11/06/17 17:59 10/10/17 06:04 Metoprolol Tartrate (Lopressor) 50 mg Q8HR ORAL 10/10/17 06:00 11/09/17 05:59 10/10/17 06:02 Ondansetron HCl (Zofran) 4 mg Q6H PRN IVP Nausea & Vomiting 10/09/17 18:00 11/03/17 17:59 Pantoprazole (Protonix) 40 mg DAILY ORAL 10/10/17 09:00 11/08/17 08:59 10/10/17 10:49 Polyethylene Glycol (Miralax) 17 gm DAILY ORAL 10/10/17 09:00 11/04/17 08:59 10/10/17 10:43 Sennosides (Senokot) 1 tab DAILY ORAL 10/10/17 09:00 11/04/17 08:59 10/10/17 10:49 Tamsulosin HCl (Flomax) 0.4 mg BEDTIME ORAL 10/09/17 21:00 11/05/17 20:59 10/09/17 20:45 Vancomycin HCl (Vanco rx to dose) 1 ea DAILY PRN MISC Per rx protocol 10/10/17 09:00 11/03/17 21:44 Vancomycin/Sodium Chloride 250 ml @ 166.667 mls/hr Q12H IVPB 10/10/17 00:00 10/13/17 12:00 10/10/17 00:00 AMELIA TREJO Oct 10, 2017 11:35
[2017-10-10 12:00] VITALS: BP 133/76
[2017-10-10] MEDS: Vancomycin 750mg/NS 250ml 250 ML IVPB SCH ×2 (12:00)
[2017-10-10] MEDS: Cefepime HCl 2 GM in D5W 110 ML IV SCH (12:05)
--- NOTE | 2017-10-10 15:08 | Pulmonology Progress Note ---
Assessment/Plan Problems: (1) Respiratory failure requiring intubation (2) Ventricular fibrillation (3) Cardiac arrest (4) Renal insufficiency (5) Dyspnea (6) Discitis of lumbar region (7) Atrial fibrillation with RVR Assessment/Plan Optimize pulmonary hygiene/mobilize as tolerated PRN O2 Abx per ID Monitor volumes Aspiration precautions Pain control/supportive care DVT Px: Eliquis F/U cards recs --> will need [facility] Possible transfer to [facility] for spine evaluation FC Subjective Allergies: Coded Allergies: PENICILLINS (Verified Allergy, Unknown, 10/04/17) Subjective AFVSS, stable O2 needs No SOB, no cough, no CP, no F/C, + back pain Objective Last 24 Hour Vital Signs Date Time Temp Pulse Resp B/P (MAP) Pulse Ox O2 Delivery O2 Flow Rate FiO2 10/10/17 15:06 97.0 10/10/17 14:01 97 133/76 10/10/17 12:00 97.0 97 18 133/76 97 Nasal Cannula 2.0 97.0 10/10/17 11:51 97.6 10/10/17 08:00 97.0 107 20 117/63 99 Nasal Cannula 2.0 97.0 10/10/17 08:00 99 10/10/17 06:02 100 135/70 10/10/17 04:00 97.6 109 20 113/62 98 Nasal Cannula 2.0 97.6 10/10/17 04:00 111 10/10/17 00:00 97.7 100 24 106/56 98 Nasal Cannula 2.0 97.7 10/10/17 00:00 97 10/09/17 20:47 96 124/66 10/09/17 20:00 98.1 96 24 124/66 99 Nasal Cannula 2.0 98.1 10/09/17 19:21 122 10/09/17 17:00 97.8 104 19 110/66 100 Nasal Cannula 2.0 97.8 10/09/17 16:00 97.4 109 19 101/64 100 Nasal Cannula 2.0 97.4 10/09/17 16:00 101 Intake and Output 10/09/17 10/10/17 19:00 07:00 Intake Total 1210 ml 1485.000 ml Output Total 700 ml 800 ml Balance 510 ml 685.000 ml Intake Oral 100 ml 150 ml IV Total 860 ml 1335.000 ml Other 250 ml Output Urine Total 700 ml 800 ml General Appearance: no acute distress, other - obese male HEENT: normocephalic, atraumatic, anicteric, mucous membranes moist Respiratory/Chest: chest wall non-tender, lungs clear, normal breath sounds, no respiratory distress, no accessory muscle use Cardiovascular: normal peripheral pulses, normal rate, regular rhythm Abdomen: normal bowel sounds, soft, non tender, no organomegaly, non distended , no mass Extremities: no cyanosis, no clubbing, no edema Laboratory Tests 10/10/17 03:25: White Blood Count 18.3H, Red Blood Count 3.67L, Hemoglobin 11.6L, Hematocrit 35.0L, Mean Corpuscular Volume 95, Mean Corpuscular Hemoglobin 31.6H, Mean Corpuscular Hemoglobin Concent 33.2, Red Cell Distribution Width 14.9H, Platelet Count 333, Mean Platelet Volume 7.3, Neutrophils (%) (Auto) , Lymphocytes (%) (Auto) , Monocytes (%) (Auto) , Eosinophils (%) (Auto) , Basophils (%) (Auto) , Differential Total Cells Counted 100, Neutrophils % ( Manual) 94H, Lymphocytes % (Manual) 3L, Monocytes % (Manual) 3, Eosinophils % ( Manual) 0, Basophils % (Manual) 0, Band Neutrophils 0, Platelet Estimate Adequate, Platelet Morphology Normal, Anisocytosis 1+, Sodium Level 145, Potassium Level 4.4, Chloride Level 114H, Carbon Dioxide Level 25, Anion Gap 6, Blood Urea Nitrogen 32H, Creatinine 0.9, Estimat Glomerular Filtration Rate , Glucose Level 148H, Calcium Level 8.5, Magnesium Level 2.0, Total Bilirubin 0.8 , Aspartate Amino Transf (AST/SGOT) 45H, Alanine Aminotransferase (ALT/SGPT) 52 , Alkaline Phosphatase 199H, Troponin I 1.243H, Total Protein 6.4, Albumin 2.0L , Globulin 4.4, Albumin/Globulin Ratio 0.5L, Triglycerides Level 112, Cholesterol Level 96, LDL Cholesterol 68, HDL Cholesterol 24L, Cholesterol/HDL Ratio 4.0 Current Medications Medications (Trade) Dose Ordered Sig/Usama Route PRN Reason Start Time Stop Time Status Last Admin Dose Admin Acetaminophen (Tylenol) 650 mg Q4H PRN ORAL Mild Pain/Temp > 100.5 10/09/17 18:30 7/28/18 14:29 10/10/17 15:06 Apixaban (Eliquis) 5 mg BID ORAL 10/10/17 09:00 11/09/17 08:59 10/10/17 10:49 Ascorbic Acid (Vitamin C) 500 mg DAILY ORAL 10/10/17 09:00 11/04/17 08:59 10/10/17 10:43 Aspirin (ASA) 81 mg DAILY ORAL 10/10/17 09:00 11/05/17 08:59 10/10/17 10:43 Atorvastatin Calcium (Lipitor) 40 mg BEDTIME ORAL 10/09/17 21:00 11/03/17 22:03 10/09/17 20:46 Cefepime HCl 2 gm/ Dextrose 110 ml @ 220 mls/hr Q12HR@0000,1200 IV 10/10/17 00:00 10/13/17 11:59 10/10/17 12:05 Dextrose 1,000 ml @ 100 mls/hr Q10H IV 10/10/17 00:15 11/09/17 00:14 10/10/17 11:47 Dextrose (Dextrose 50%) 25 ml STAT PRN IV Hypoglycemia 10/09/17 18:00 11/08/17 17:59 Dextrose (Dextrose 50%) 50 ml STAT PRN IV Hypoglycemia 10/09/17 18:00 11/08/17 17:59 Hydromorphone HCl (Dilaudid) 0.5 mg Q4H PRN IVP For Pain 10/09/17 18:00 10/11/17 17:59 Insulin Aspart (NovoLOG) Q6HR SUBQ 10/09/17 18:00 11/06/17 17:59 10/10/17 12:04 Metoprolol Tartrate (Lopressor) 50 mg Q8HR ORAL 10/10/17 06:00 11/09/17 05:59 10/10/17 14:01 Ondansetron HCl (Zofran) 4 mg Q6H PRN IVP Nausea & Vomiting 10/09/17 18:00 11/03/17 17:59 Pantoprazole (Protonix) 40 mg DAILY ORAL 10/10/17 09:00 11/08/17 08:59 10/10/17 10:49 Polyethylene Glycol (Miralax) 17 gm DAILY ORAL 10/10/17 09:00 11/04/17 08:59 10/10/17 10:43 Sennosides (Senokot) 1 tab DAILY ORAL 10/10/17 09:00 11/04/17 08:59 10/10/17 10:49 Tamsulosin HCl (Flomax) 0.4 mg BEDTIME ORAL 10/09/17 21:00 11/05/17 20:59 10/09/17 20:45 Vancomycin HCl (Vanco rx to dose) 1 ea DAILY PRN MISC Per rx protocol 10/10/17 09:00 11/03/17 21:44 Vancomycin/Sodium Chloride 250 ml @ 166.667 mls/hr Q12H IVPB 10/10/17 00:00 10/13/17 12:00 10/10/17 12:00 Zac Driscoll MD Oct 10, 2017 15:08
[2017-10-10 16:00] VITALS: BP 112/64
[2017-10-10] MEDS ORDERED: Tubing IV Secondary IV ONE ×2 (17:14→17:42)
[2017-10-10] MEDS ORDERED: NS 500ML ONE (17:14)
[2017-10-10] MEDS ORDERED: NS 275ml ONE (17:42)
--- NOTE | 2017-10-10 19:02 | General Progress Note ---
Assessment/Plan Problem List: (1) Discitis of lumbar region ICD Codes: M46.46 - Discitis, unspecified, lumbar region SNOMED: 189875858 (2) Cardiac arrest ICD Codes: I46.9 - Cardiac arrest, cause unspecified SNOMED: 692926757 (3) Atrial fibrillation with RVR ICD Codes: I48.91 - Unspecified atrial fibrillation SNOMED: 933719249290365 (4) Ventricular fibrillation ICD Codes: I49.01 - Ventricular fibrillation SNOMED: 93674040 (5) Respiratory failure requiring intubation ICD Codes: J96.90 - Respiratory failure, unspecified, unspecified whether with hypoxia or hypercapnia SNOMED: 976680166 Status: stable, progressing Assessment/Plan resp care o2 follow up labs iv abx follow up cultures dvt/stress ulcer prophylaxis transfer to [facility] for spine eval and cath Subjective ROS Limited/Unobtainable: No Constitutional: Reports: malaise, weakness HEENT: Reports: no symptoms Cardiovascular: Reports: irregular heart rate Respiratory: Reports: no symptoms Gastrointestinal/Abdominal: Reports: no symptoms Genitourinary: Reports: no symptoms Neurologic/Psychiatric: Reports: no symptoms Endocrine: Reports: no symptoms Hematologic/Lymphatic: Reports: no symptoms Allergies: Coded Allergies: PENICILLINS (Verified Allergy, Unknown, 10/04/17) All Systems: reviewed and negative except above Subjective no new complaints. pain better controlled. afib. no sob. Objective Last 24 Hour Vital Signs Date Time Temp Pulse Resp B/P (MAP) Pulse Ox O2 Delivery O2 Flow Rate FiO2 10/10/17 16:05 96.6 10/10/17 16:00 100 10/10/17 16:00 96.6 90 22 112/64 100 Nasal Cannula 2.0 96.6 10/10/17 15:06 97.0 10/10/17 14:01 97 133/76 10/10/17 12:00 97.0 97 18 133/76 97 Nasal Cannula 2.0 97.0 10/10/17 12:00 97 10/10/17 08:00 97.0 107 20 117/63 99 Nasal Cannula 2.0 97.0 10/10/17 08:00 99 10/10/17 06:02 100 135/70 10/10/17 04:00 97.6 109 20 113/62 98 Nasal Cannula 2.0 97.6 10/10/17 04:00 111 10/10/17 00:00 97.7 100 24 106/56 98 Nasal Cannula 2.0 97.7 10/10/17 00:00 97 10/09/17 20:47 96 124/66 10/09/17 20:00 98.1 96 24 124/66 99 Nasal Cannula 2.0 98.1 10/09/17 19:21 122 Intake and Output 10/09/17 10/10/17 19:00 07:00 Intake Total 1210 ml 1485.000 ml Output Total 700 ml 800 ml Balance 510 ml 685.000 ml Intake Oral 100 ml 150 ml IV Total 860 ml 1335.000 ml Other 250 ml Output Urine Total 700 ml 800 ml Laboratory Tests 10/10/17 03:25: White Blood Count 18.3H, Red Blood Count 3.67L, Hemoglobin 11.6L, Hematocrit 35.0L, Mean Corpuscular Volume 95, Mean Corpuscular Hemoglobin 31.6H, Mean Corpuscular Hemoglobin Concent 33.2, Red Cell Distribution Width 14.9H, Platelet Count 333, Mean Platelet Volume 7.3, Neutrophils (%) (Auto) , Lymphocytes (%) (Auto) , Monocytes (%) (Auto) , Eosinophils (%) (Auto) , Basophils (%) (Auto) , Differential Total Cells Counted 100, Neutrophils % ( Manual) 94H, Lymphocytes % (Manual) 3L, Monocytes % (Manual) 3, Eosinophils % ( Manual) 0, Basophils % (Manual) 0, Band Neutrophils 0, Platelet Estimate Adequate, Platelet Morphology Normal, Anisocytosis 1+, Sodium Level 145, Potassium Level 4.4, Chloride Level 114H, Carbon Dioxide Level 25, Anion Gap 6, Blood Urea Nitrogen 32H, Creatinine 0.9, Estimat Glomerular Filtration Rate , Glucose Level 148H, Calcium Level 8.5, Magnesium Level 2.0, Total Bilirubin 0.8 , Aspartate Amino Transf (AST/SGOT) 45H, Alanine Aminotransferase (ALT/SGPT) 52 , Alkaline Phosphatase 199H, Troponin I 1.243H, Total Protein 6.4, Albumin 2.0L , Globulin 4.4, Albumin/Globulin Ratio 0.5L, Triglycerides Level 112, Cholesterol Level 96, LDL Cholesterol 68, HDL Cholesterol 24L, Cholesterol/HDL Ratio 4.0 Height (Feet): 5 Height (Inches): 9.00 Weight (Pounds): 252 Objective General Appearance: WD/WN, extubated, a and o x3 Neck: supple Cardiovascular: normal rate, regular rhythm Respiratory/Chest: chest wall non-tender, lungs clear, normal breath sounds, no respiratory distress Abdomen: normal bowel sounds, non tender, soft, no organomegaly Edema: mild edema Neurologic: alert, responsive Jamin Mendoza MD Oct 10, 2017 19:02
[2017-10-10 20:00] VITALS: BP 112/60
[2017-10-10] MEDS: Atorvastatin 20mg tab ORAL SCH (20:42)
[2017-10-10] MEDS: Tamsulosin 0.4mg cap ORAL SCH (20:42)
[2017-10-11] VITALS: BP 108/56
[2017-10-11] MEDS: Cefepime HCl 2 GM in D5W 110 ML IV SCH ×3 (00:17→23:55)
[2017-10-11] MEDS: Vancomycin 750mg/NS 250ml 250 ML IVPB SCH ×3 (00:17→23:54)
[2017-10-11] MEDS: NovoLOG Insulin Flexpen SUBQ SCH ×4 (00:19→18:12)
--- NOTE | 2017-10-11 02:00 | Progress Note ---
DATE: 10/10/2017 CARDIOLOGY PROGRESS NOTE SUBJECTIVE: The patient reports no new complaints. He denies chest pain or shortness of breath. Back pain is improved. Monitor atrial fibrillation. OBJECTIVE: LUNGS: Good breath sounds. Diminished at bases. HEART: Irregularly irregular rhythm. Normal S1, S2. ABDOMEN: Soft. EXTREMITIES: Trace edema. LABORATORY DATA: White count 18, hemoglobin 11.6, potassium 4.4, BUN 32, creatinine 0.9. Troponin down to 1.2. LDL cholesterol 68. Albumin 2.0. IMPRESSION: 1. Status post cardiopulmonary arrest. 2. Paroxysmal atrial fibrillation. 3. Acute myocardial infarction. 4. Diskitis. 5. Severe protein calorie malnutrition. PLAN: 1. Maintain current antianginal and anti-arrhythmic regimen. 2. Full anticoagulation for cardioembolic prophylaxis. 3. Ischemia workup with cardiac catheterization to follow once we are able to transfer to tertiary care facility. Brijesh Vela M.D. DR: PETER JOB#: [id number] CC:
[2017-10-11 04:00] VITALS: BP 112/55
[2017-10-11] MEDS: Metoprolol Tartrate 50mg tab ORAL SCH ×3 (05:59→21:33)
[2017-10-11 08:00] VITALS: BP 118/61
[2017-10-11] MEDS: Sennosides 8.6mg ORAL SCH (08:16)
[2017-10-11] MEDS: Ascorbic Acid 500mg tab ORAL SCH (08:16)
[2017-10-11] MEDS: Aspirin Baby 81mg ORAL SCH (08:17)
[2017-10-11] MEDS: Miralax 17gm pkt ORAL SCH (08:17)
[2017-10-11] MEDS: Eliquis 2.5mg tablet ORAL SCH ×2 (08:17→17:29)
--- NOTE | 2017-10-11 10:03 | Infectious Diseases Prog Note ---
Assessment/Plan Assessment/Plan A 1. lumbar discitis/osteomyelitis 2. leucocytosis 3. hypertension 4. s/p cardiac arrest 5. respiratory failure RESOLVED 6. MRSA, VRE and ESBL colonization 7. Atrial fibrillation P 1. continue iv vancomycin, cefepime 2. will follow up cultures Subjective ROS Limited/Unobtainable: Yes Constitutional: Reports: no symptoms Respiratory: Reports: no symptoms Genitourinary: Reports: no symptoms Musculoskeletal: Reports: no symptoms Allergies: Coded Allergies: PENICILLINS (Verified Allergy, Unknown, 10/04/17) Objective Vital Signs Last 24 Hour Vital Signs Date Time Temp Pulse Resp B/P (MAP) Pulse Ox O2 Delivery O2 Flow Rate FiO2 10/11/17 08:00 97.0 77 20 118/61 97 Nasal Cannula 2.0 97.0 10/11/17 08:00 98 10/11/17 05:59 95 112/55 10/11/17 04:00 97.0 95 20 112/55 100 Nasal Cannula 2.0 97.0 10/11/17 03:42 99 10/11/17 03:10 96.8 10/11/17 00:00 98 10/11/17 00:00 97.2 90 20 108/56 100 Nasal Cannula 2.0 97.2 10/10/17 22:15 100 112/60 10/10/17 20:00 93 10/10/17 20:00 96.8 100 20 112/60 100 Nasal Cannula 2.0 96.8 10/10/17 16:05 96.6 10/10/17 16:00 100 10/10/17 16:00 96.6 90 22 112/64 100 Nasal Cannula 2.0 96.6 10/10/17 15:06 97.0 10/10/17 14:01 97 133/76 10/10/17 12:00 97.0 97 18 133/76 97 Nasal Cannula 2.0 97.0 10/10/17 12:00 97 Height (Feet): 5 Height (Inches): 9.00 Weight (Pounds): 252 HEENT: mucous membranes moist Respiratory/Chest: lungs clear, other - oxygen by nasal cannula Cardiovascular: normal rate Abdomen: soft, non tender Extremities: no edema Neurologic/Psychiatric: alert, oriented x 3, responsive Current Medications Medications (Trade) Dose Ordered Sig/Usama Route PRN Reason Start Time Stop Time Status Last Admin Dose Admin Acetaminophen (Tylenol) 650 mg Q4H PRN ORAL Mild Pain/Temp > 100.5 10/09/17 18:30 11/07/17 14:29 10/11/17 03:10 Apixaban (Eliquis) 5 mg BID ORAL 10/10/17 09:00 11/09/17 08:59 10/11/17 08:17 Ascorbic Acid (Vitamin C) 500 mg DAILY ORAL 10/10/17 09:00 11/04/17 08:59 10/11/17 08:16 Aspirin (ASA) 81 mg DAILY ORAL 10/10/17 09:00 11/05/17 08:59 10/11/17 08:17 Atorvastatin Calcium (Lipitor) 40 mg BEDTIME ORAL 10/09/17 21:00 11/03/17 22:03 10/10/17 20:42 Cefepime HCl 2 gm/ Dextrose 110 ml @ 220 mls/hr Q12HR@0000,1200 IV 10/10/17 00:00 10/13/17 11:59 10/11/17 00:17 Dextrose 1,000 ml @ 100 mls/hr Q10H IV 10/10/17 00:15 11/09/17 00:14 10/11/17 06:01 Dextrose (Dextrose 50%) 25 ml STAT PRN IV Hypoglycemia 10/09/17 18:00 11/08/17 17:59 Dextrose (Dextrose 50%) 50 ml STAT PRN IV Hypoglycemia 10/09/17 18:00 11/08/17 17:59 Hydromorphone HCl (Dilaudid) 0.5 mg Q4H PRN IVP For Pain 10/09/17 18:00 10/11/17 17:59 Insulin Aspart (NovoLOG) Q6HR SUBQ 10/09/17 18:00 11/06/17 17:59 10/11/17 06:01 Metoprolol Tartrate (Lopressor) 50 mg Q8HR ORAL 10/10/17 06:00 11/09/17 05:59 10/11/17 05:59 Ondansetron HCl (Zofran) 4 mg Q6H PRN IVP Nausea & Vomiting 10/09/17 18:00 11/03/17 17:59 Pantoprazole (Protonix) 40 mg DAILY ORAL 10/10/17 09:00 11/08/17 08:59 10/11/17 08:16 Polyethylene Glycol (Miralax) 17 gm DAILY ORAL 10/10/17 09:00 11/04/17 08:59 10/11/17 08:17 Sennosides (Senokot) 1 tab DAILY ORAL 10/10/17 09:00 11/04/17 08:59 10/11/17 08:16 Tamsulosin HCl (Flomax) 0.4 mg BEDTIME ORAL 10/09/17 21:00 11/05/17 20:59 10/10/17 20:42 Vancomycin HCl (Vanco rx to dose) 1 ea DAILY PRN MISC Per rx protocol 10/10/17 09:00 11/03/17 21:44 Vancomycin/Sodium Chloride 250 ml @ 166.667 mls/hr Q12H IVPB 10/10/17 00:00 10/13/17 12:00 10/11/17 00:17 Edin Berger MD Oct 11, 2017 10:03
--- NOTE | 2017-10-11 10:57 | General Progress Note ---
Assessment/Plan Problem List: (1) Discitis of lumbar region ICD Codes: M46.46 - Discitis, unspecified, lumbar region SNOMED: 620587385 (2) Cardiac arrest ICD Codes: I46.9 - Cardiac arrest, cause unspecified SNOMED: 870340726 (3) Atrial fibrillation with RVR ICD Codes: I48.91 - Unspecified atrial fibrillation SNOMED: 607200961827400 (4) Ventricular fibrillation ICD Codes: I49.01 - Ventricular fibrillation SNOMED: 89608645 (5) Respiratory failure requiring intubation ICD Codes: J96.90 - Respiratory failure, unspecified, unspecified whether with hypoxia or hypercapnia SNOMED: 756376055 Status: stable, progressing Assessment/Plan resp care o2 follow up labs iv abx follow up cultures dvt/stress ulcer prophylaxis transfer to [facility] for spine eval and cath Subjective ROS Limited/Unobtainable: No Constitutional: Reports: malaise, weakness HEENT: Reports: no symptoms Cardiovascular: Reports: no symptoms Respiratory: Reports: no symptoms Gastrointestinal/Abdominal: Reports: no symptoms Genitourinary: Reports: no symptoms Neurologic/Psychiatric: Reports: no symptoms Endocrine: Reports: no symptoms Hematologic/Lymphatic: Reports: no symptoms Allergies: Coded Allergies: PENICILLINS (Verified Allergy, Unknown, 10/04/17) All Systems: reviewed and negative except above Subjective no new complaints. pain better controlled. afib. no sob. denies chest pain on iv abx. trop trending down. Objective Last 24 Hour Vital Signs Date Time Temp Pulse Resp B/P (MAP) Pulse Ox O2 Delivery O2 Flow Rate FiO2 10/11/17 08:00 97.0 77 20 118/61 97 Nasal Cannula 2.0 97.0 10/11/17 08:00 98 10/11/17 05:59 95 112/55 10/11/17 04:00 97.0 95 20 112/55 100 Nasal Cannula 2.0 97.0 10/11/17 03:42 99 10/11/17 03:10 96.8 10/11/17 00:00 98 10/11/17 00:00 97.2 90 20 108/56 100 Nasal Cannula 2.0 97.2 10/10/17 22:15 100 112/60 10/10/17 20:00 93 10/10/17 20:00 96.8 100 20 112/60 100 Nasal Cannula 2.0 96.8 10/10/17 16:05 96.6 10/10/17 16:00 100 10/10/17 16:00 96.6 90 22 112/64 100 Nasal Cannula 2.0 96.6 10/10/17 15:06 97.0 10/10/17 14:01 97 133/76 10/10/17 12:00 97.0 97 18 133/76 97 Nasal Cannula 2.0 97.0 10/10/17 12:00 97 Intake and Output 10/10/17 10/11/17 19:00 07:00 Intake Total 1426.667 ml 1460 ml Output Total 900 ml Balance 526.667 ml 1460 ml Intake Oral 450 ml IV Total 976.667 ml 1460 ml Output Urine Total 900 ml Height (Feet): 5 Height (Inches): 9.00 Weight (Pounds): 252 Objective General Appearance: WD/WN, extubated, a and o x3 Neck: supple Cardiovascular: normal rate, regular rhythm Respiratory/Chest: chest wall non-tender, lungs clear, normal breath sounds, no respiratory distress Abdomen: normal bowel sounds, non tender, soft, no organomegaly Edema: mild edema Neurologic: alert, responsive Jamin Mendoza MD Oct 11, 2017 10:57
[2017-10-11 12:00] VITALS: BP 139/78
--- NOTE | 2017-10-11 12:11 | Pulmonology Progress Note ---
Assessment/Plan Problems: (1) Respiratory failure requiring intubation (2) Ventricular fibrillation (3) Cardiac arrest (4) Renal insufficiency (5) Dyspnea (6) Discitis of lumbar region (7) Atrial fibrillation with RVR (8) JULISSA (obstructive sleep apnea) Assessment/Plan BiPAP 12/5 qHS and PRN - family can bring in pts CPAP machine Optimize pulmonary hygiene/mobilize as tolerated PRN O2 Abx per ID Monitor volumes Aspiration precautions Pain control/supportive care DVT Px: Eliquis F/U cards recs --> will need [facility] Possible transfer to [facility] for spine evaluation and cath FC Subjective Allergies: Coded Allergies: PENICILLINS (Verified Allergy, Unknown, 10/04/17) Subjective AFVSS, stable O2 needs, not using BiPAP at night, not using IS No SOB, no cough, no CP, no F/C, + back pain Objective Last 24 Hour Vital Signs Date Time Temp Pulse Resp B/P (MAP) Pulse Ox O2 Delivery O2 Flow Rate FiO2 10/11/17 08:00 97.0 77 20 118/61 97 Nasal Cannula 2.0 97.0 10/11/17 08:00 98 10/11/17 05:59 95 112/55 10/11/17 04:00 97.0 95 20 112/55 100 Nasal Cannula 2.0 97.0 10/11/17 03:42 99 10/11/17 03:10 96.8 10/11/17 00:00 98 10/11/17 00:00 97.2 90 20 108/56 100 Nasal Cannula 2.0 97.2 10/10/17 22:15 100 112/60 10/10/17 20:00 93 10/10/17 20:00 96.8 100 20 112/60 100 Nasal Cannula 2.0 96.8 10/10/17 16:05 96.6 10/10/17 16:00 100 10/10/17 16:00 96.6 90 22 112/64 100 Nasal Cannula 2.0 96.6 10/10/17 15:06 97.0 10/10/17 14:01 97 133/76 Intake and Output 10/10/17 10/11/17 19:00 07:00 Intake Total 1426.667 ml 1560 ml Output Total 900 ml Balance 526.667 ml 1560 ml Intake Oral 450 ml IV Total 976.667 ml 1560 ml Output Urine Total 900 ml General Appearance: no acute distress, other - awake, obese HEENT: normocephalic, atraumatic, anicteric, mucous membranes moist Respiratory/Chest: chest wall non-tender, lungs clear, normal breath sounds, no respiratory distress, no accessory muscle use Cardiovascular: normal peripheral pulses, irregularly irregular Abdomen: normal bowel sounds, soft, non tender, no organomegaly, non distended , no mass Extremities: no cyanosis, no clubbing, no edema Current Medications Medications (Trade) Dose Ordered Sig/Usama Route PRN Reason Start Time Stop Time Status Last Admin Dose Admin Acetaminophen (Tylenol) 650 mg Q4H PRN ORAL Mild Pain/Temp > 100.5 10/09/17 18:30 11/07/17 14:29 10/11/17 03:10 Apixaban (Eliquis) 5 mg BID ORAL 10/10/17 09:00 11/09/17 08:59 10/11/17 08:17 Ascorbic Acid (Vitamin C) 500 mg DAILY ORAL 10/10/17 09:00 11/04/17 08:59 10/11/17 08:16 Aspirin (ASA) 81 mg DAILY ORAL 10/10/17 09:00 11/05/17 08:59 10/11/17 08:17 Atorvastatin Calcium (Lipitor) 40 mg BEDTIME ORAL 10/09/17 21:00 11/03/17 22:03 10/10/17 20:42 Cefepime HCl 2 gm/ Dextrose 110 ml @ 220 mls/hr Q12HR@0000,1200 IV 10/10/17 00:00 10/13/17 11:59 10/11/17 00:17 Dextrose 1,000 ml @ 100 mls/hr Q10H IV 10/10/17 00:15 11/09/17 00:14 10/11/17 06:01 Dextrose (Dextrose 50%) 25 ml STAT PRN IV Hypoglycemia 10/09/17 18:00 11/08/17 17:59 Dextrose (Dextrose 50%) 50 ml STAT PRN IV Hypoglycemia 10/09/17 18:00 11/08/17 17:59 Hydromorphone HCl (Dilaudid) 0.5 mg Q4H PRN IVP For Pain 10/09/17 18:00 10/11/17 17:59 Insulin Aspart (NovoLOG) Q6HR SUBQ 10/09/17 18:00 11/06/17 17:59 10/11/17 06:01 Metoprolol Tartrate (Lopressor) 50 mg Q8HR ORAL 10/10/17 06:00 11/09/17 05:59 10/11/17 05:59 Ondansetron HCl (Zofran) 4 mg Q6H PRN IVP Nausea & Vomiting 10/09/17 18:00 11/03/17 17:59 Pantoprazole (Protonix) 40 mg DAILY ORAL 10/10/17 09:00 11/08/17 08:59 10/11/17 08:16 Polyethylene Glycol (Miralax) 17 gm DAILY ORAL 10/10/17 09:00 11/04/17 08:59 10/11/17 08:17 Sennosides (Senokot) 1 tab DAILY ORAL 10/10/17 09:00 11/04/17 08:59 10/11/17 08:16 Tamsulosin HCl (Flomax) 0.4 mg BEDTIME ORAL 10/09/17 21:00 11/05/17 20:59 10/10/17 20:42 Vancomycin HCl (Vanco rx to dose) 1 ea DAILY PRN MISC Per rx protocol 10/10/17 09:00 11/03/17 21:44 Vancomycin/Sodium Chloride 250 ml @ 166.667 mls/hr Q12H IVPB 10/10/17 00:00 10/13/17 12:00 10/11/17 00:17 Zac Driscoll MD Oct 11, 2017 12:11
[2017-10-11 16:00] VITALS: BP 148/50
[2017-10-11] MEDS: Tamsulosin 0.4mg cap ORAL SCH (18:12)
[2017-10-11 20:00] VITALS: BP 124/72
[2017-10-11] MEDS: Atorvastatin 20mg tab ORAL SCH (21:33)
[2017-10-12] VITALS: BP 108/62
[2017-10-12] MEDS: NovoLOG Insulin Flexpen SUBQ SCH ×4 (00:15→17:59)
--- NOTE | 2017-10-12 01:15 | Progress Note ---
DATE: 10/11/2017 CARDIOLOGY PROGRESS NOTE SUBJECTIVE: The patient is without new complaints. Pain control is improved. He has no chest pain or shortness of breath. Monitor, atrial fibrillation. Overall, rate controlled. Case discussed with his brother. The patient needs total care at this time. He is not able to go home. PHYSICAL EXAMINATION: LUNGS: Bilateral breath sounds. No wheezing. HEART: Irregularly irregular rhythm. Normal S1, S2. ABDOMEN: Obese. EXTREMITIES: Trace edema. LABORATORY DATA: No new laboratories today. IMPRESSION: 1. Acute myocardial infarction. 2. Acute on chronic diastolic congestive heart failure. 3. Diskitis. 4. Immobility. 5. Severe protein-calorie malnutrition. 6. Paroxysmal atrial fibrillation. PLAN: 1. Continue current anti-platelet and antianginal regimen. 2. Monitor volume status. 3. Diuresis based on clinical parameters. 4. Discontinue intravenous fluids. 5. Continue statin therapy, but decrease dose in view of very low cholesterol levels. We will need to address transfer timing for cardiac catheterization and further spine therapy. Continue full anticoagulation for cardioembolic prophylaxis. Birjesh Vela M.D. DR: CHRISTOPHER JOB#: [id number] CC:
[2017-10-12 04:00] VITALS: BP 101/53
[2017-10-12 05:07] LABS: BASOPHILS % (AUTO) 1.8 % (0.0-2.0); EOSINOPHILS % (AUTO) 1.8 % (0.0-3.0); HEMATOCRIT 38.6 % (42.0-52.0); HEMOGLOBIN 12.8 G/DL (14.2-18.0); LYMPHOCYTES % (AUTO) 6.6 % (20.0-45.0); MEAN CORPUSCULAR VOLUME 94 FL (80-99); MONOCYTES % (AUTO) 7.1 % (1.0-10.0); NEUTROPHILS % (AUTO) 82.7 % (45.0-75.0); PLATELET COUNT 292 K/UL (150-450); RED BLOOD COUNT 4.09 M/UL (4.70-6.10); RED CELL DISTRIBUTION WIDTH 15.3 % (11.6-14.8); WHITE BLOOD COUNT 14.4 K/UL (4.8-10.8)
[2017-10-12 05:20] LABS: ALANINE AMINOTRANSFERASE 53 U/L (12-78); ALBUMIN/GLOBULIN RATIO 0.5 (1.0-2.7); ALKALINE PHOSPHATASE 193 U/L (46-116); ANION GAP 7 mmol/L (5-15); ASPARTATE AMINO TRANSFERASE 41 U/L (15-37); BLOOD UREA NITROGEN 17 mg/dL (7-18); CALCIUM 8.4 MG/DL (8.5-10.1); CARBON DIOXIDE 23 MMOL/L (21-32); CHLORIDE 105 MMOL/L (98-107); CREATININE 0.7 MG/DL (0.55-1.30); POTASSIUM 4.7 MMOL/L (3.5-5.1); SODIUM 135 MMOL/L (136-145)
[2017-10-12] MEDS: Metoprolol Tartrate 50mg tab ORAL SCH ×4 (05:50→21:09)
[2017-10-12 08:00] VITALS: BP 130/82
[2017-10-12] MEDS: Eliquis 2.5mg tablet ORAL SCH ×2 (08:35→17:58)
[2017-10-12] MEDS: Aspirin Baby 81mg ORAL SCH (08:35)
[2017-10-12] MEDS: Sennosides 8.6mg ORAL SCH (08:36)
[2017-10-12] MEDS: Miralax 17gm pkt ORAL SCH (08:36)
[2017-10-12] MEDS: Ascorbic Acid 500mg tab ORAL SCH (08:36)
--- NOTE | 2017-10-12 09:18 | Pulmonology Progress Note ---
Assessment/Plan Problems: (1) Respiratory failure requiring intubation (2) Ventricular fibrillation (3) Cardiac arrest (4) Renal insufficiency (5) Dyspnea (6) Discitis of lumbar region (7) Atrial fibrillation with RVR (8) JULISSA (obstructive sleep apnea) Assessment/Plan BiPAP 12/5 qHS and PRN - Alternatively, can use his own machine Optimize pulmonary hygiene/mobilize as tolerated PRN O2 Abx per ID Monitor volumes Aspiration precautions Pain control/supportive care DVT Px: Eliquis F/U cards recs --> will need [facility] Possible transfer to [facility] for spine evaluation and cath FC Subjective Allergies: Coded Allergies: PENICILLINS (Verified Allergy, Unknown, 10/04/17) Subjective AFVSS, stable O2 needs, brought his own CPAP machine - used hospital BiPAP with his own mask last nigh, was able to tolerated, not using IS No SOB, no cough, no CP, no F/C, + back pain Objective Last 24 Hour Vital Signs Date Time Temp Pulse Resp B/P (MAP) Pulse Ox O2 Delivery O2 Flow Rate FiO2 10/12/17 08:35 111 130/82 10/12/17 06:48 Nasal Cannula 2.0 28 10/12/17 06:48 97 Nasal Cannula 2.0 28 10/12/17 06:48 99 20 Nasal Cannula 2.0 28 10/12/17 04:40 110 17 97 Nasal 30 10/12/17 04:00 25 10/12/17 04:00 97.5 107 17 101/53 100 Nasal Cannula 2.0 97.5 10/12/17 04:00 105 10/12/17 03:08 96 20 97 Nasal 30 10/12/17 00:52 94 21 96 Nasal 30 10/12/17 00:00 97.7 92 22 108/62 98 Nasal Cannula 2.0 97.7 10/12/17 00:00 92 10/12/17 00:00 25 10/11/17 22:56 95 19 97 Nasal 30 10/11/17 21:33 115 124/72 10/11/17 21:06 115 20 95 Nasal 30 10/11/17 21:00 25 10/11/17 20:00 2.0 10/11/17 20:00 101 10/11/17 20:00 97.0 111 24 124/72 98 Nasal Cannula 2.0 97.0 10/11/17 19:03 93 20 Nasal Cannula 2.0 28 10/11/17 19:03 98 Nasal Cannula 2.0 28 10/11/17 19:03 Nasal Cannula 2.0 28 10/11/17 16:00 97.9 94 24 148/50 99 Nasal Cannula 2.0 97.9 10/11/17 16:00 98 10/11/17 14:05 77 139/78 10/11/17 12:00 96 10/11/17 12:00 97.2 77 22 139/78 97 Nasal Cannula 2.0 97.2 Intake and Output 10/11/17 10/12/17 19:00 07:00 Intake Total 1293.334 ml 880.000 ml Output Total 1100 ml 150 ml Balance 193.334 ml 730.000 ml Intake Oral 240 ml IV Total 1293.334 ml 640.000 ml Output Urine Total 1100 ml 150 ml # Voids 2 General Appearance: no acute distress, other - obese male HEENT: normocephalic, atraumatic, mucous membranes moist Respiratory/Chest: chest wall non-tender, lungs clear, normal breath sounds, no respiratory distress, no accessory muscle use Cardiovascular: normal peripheral pulses, normal rate, regular rhythm Abdomen: normal bowel sounds, soft, non tender, no organomegaly, non distended , no mass Extremities: no cyanosis, no clubbing, no edema Laboratory Tests 10/12/17 04:10: White Blood Count 14.4H, Red Blood Count 4.09L, Hemoglobin 12.8L, Hematocrit 38.6L, Mean Corpuscular Volume 94, Mean Corpuscular Hemoglobin 31.3H, Mean Corpuscular Hemoglobin Concent 33.2, Red Cell Distribution Width 15.3H, Platelet Count 292, Mean Platelet Volume 7.5, Neutrophils (%) (Auto) 82.7H, Lymphocytes (%) (Auto) 6.6L, Monocytes (%) (Auto) 7.1, Eosinophils (%) (Auto) 1.8, Basophils (%) (Auto) 1.8, Sodium Level 135L, Potassium Level 4.7, Chloride Level 105, Carbon Dioxide Level 23, Anion Gap 7, Blood Urea Nitrogen 17, Creatinine 0.7, Estimat Glomerular Filtration Rate , Glucose Level 98, Calcium Level 8.4L, Magnesium Level 1.6L, Total Bilirubin 1.0, Aspartate Amino Transf ( AST/SGOT) 41H, Alanine Aminotransferase (ALT/SGPT) 53, Alkaline Phosphatase 193H , Pro-B-Type Natriuretic Peptide 2620H, Total Protein 6.3L, Albumin 2.0L, Globulin 4.3, Albumin/Globulin Ratio 0.5L Current Medications Medications (Trade) Dose Ordered Sig/Usama Route PRN Reason Start Time Stop Time Status Last Admin Dose Admin Acetaminophen (Tylenol) 650 mg Q4H PRN ORAL Mild Pain/Temp > 100.5 10/09/17 18:30 11/07/17 14:29 10/11/17 03:10 Apixaban (Eliquis) 5 mg BID ORAL 10/10/17 09:00 11/09/17 08:59 10/12/17 08:35 Ascorbic Acid (Vitamin C) 500 mg DAILY ORAL 10/10/17 09:00 11/04/17 08:59 10/12/17 08:36 Aspirin (ASA) 81 mg DAILY ORAL 10/10/17 09:00 11/05/17 08:59 10/12/17 08:35 Atorvastatin Calcium (Lipitor) 20 mg BEDTIME ORAL 10/11/17 21:30 11/10/17 21:29 10/11/17 21:33 Cefepime HCl 2 gm/ Dextrose 110 ml @ 220 mls/hr Q12HR@0000,1200 IV 10/10/17 00:00 10/13/17 11:59 10/11/17 23:55 Dextrose 1,000 ml @ 20 mls/hr Q24H ONCE IV 10/11/17 21:15 10/12/17 21:14 10/11/17 21:35 Dextrose (Dextrose 50%) 25 ml STAT PRN IV Hypoglycemia 10/09/17 18:00 11/08/17 17:59 Dextrose (Dextrose 50%) 50 ml STAT PRN IV Hypoglycemia 10/09/17 18:00 11/08/17 17:59 Insulin Aspart (NovoLOG) Q6HR SUBQ 10/09/17 18:00 11/06/17 17:59 10/12/17 00:15 Metoprolol Tartrate (Lopressor) 50 mg Q8HR ORAL 10/10/17 06:00 11/09/17 05:59 10/12/17 08:35 Ondansetron HCl (Zofran) 4 mg Q6H PRN IVP Nausea & Vomiting 10/09/17 18:00 11/03/17 17:59 Pantoprazole (Protonix) 40 mg DAILY ORAL 10/10/17 09:00 11/08/17 08:59 10/12/17 08:35 Polyethylene Glycol (Miralax) 17 gm DAILY ORAL 10/10/17 09:00 11/04/17 08:59 10/12/17 08:36 Sennosides (Senokot) 1 tab DAILY ORAL 10/10/17 09:00 11/04/17 08:59 10/12/17 08:36 Tamsulosin HCl (Flomax) 0.4 mg BEDTIME ORAL 10/09/17 21:00 11/05/17 20:59 10/11/17 18:12 Vancomycin HCl (Vanco rx to dose) 1 ea DAILY PRN MISC Per rx protocol 10/10/17 09:00 11/03/17 21:44 Vancomycin/Sodium Chloride 250 ml @ 166.667 mls/hr Q12H IVPB 10/10/17 00:00 10/13/17 12:00 10/11/17 23:54 Zac Driscoll MD Oct 12, 2017 09:18
[2017-10-12] MEDS ORDERED: Tubing IV Secondary IV ONE (09:37)
[2017-10-12] MEDS ORDERED: NS 500ML ONE (09:37)
--- NOTE | 2017-10-12 10:10 | Diagnostic Imaging Report ---
APPROVED REPORT CPT Code: 15380 BILATERAL: Imaging reveals a patent deep venous system bilaterally. There is no evidence of thrombus within the femoral, popliteal or tibial segments. The greater saphenous veins are also within normal limits. Doppler indicates normal spontaneous flow within these segments.
[2017-10-12 12:00] VITALS: BP 94/55
[2017-10-12] MEDS: Cefepime HCl 2 GM in D5W 110 ML IV SCH (12:30)
[2017-10-12] MEDS: Vancomycin 750mg/NS 250ml 250 ML IVPB SCH (12:30)
--- NOTE | 2017-10-12 13:09 | Cardiology Report ---
APPROVED REPORT EXAM: Two-dimensional and M-mode echocardiogram with Doppler and color Doppler. INDICATION Acute myocardial infarction M-Mode DIMENSIONS IVSd1.3 (0.7-1.1cm)Left Atrium (MM)5.5 (1.6-4.0cm) LVDd4.3 (3.5-5.6cm)Aortic Root2.2 (2.0-3.7cm) PWd1.1 (0.7-1.1cm)Aortic Cusp Exc.1.2 (1.5-2.0cm) LVDs1.6 (2.5-4.0cm) PWs2.0 cm Technically difficult study due to patient on ventilator. Study quality precludes accurate assessment of regional wall motion. Normal left ventricular chamber size, systolic function and wall motion. Left ventricular ejection fraction estimated to be 55 %. Mild left ventricular hypertrophy. Large posterior pleural effusion. Mild bi-atrial enlargement. Right ventricular chamber size is within normal limits. Aortic valve calcification with decreased cusp excursion c/w aortic stenosis. Heavily thickened mitral valve leaflets with reduced excursion. Mild mitral annulus and aortic root calcification. Pulmonic valve not well visualized. Normal tricuspid valve structure. IVC dilated at 2.8 cm without physiologic collapse, estimated RAP is 20 mmHg. A color flow and spectral Doppler study was performed and revealed: No aortic regurgitation. Peak aortic valve gradient of 45 mmHg and a mean of 28 mmHg. Aortic valve area 0.9 cm2 calculated by continuity equation. Mild mitral regurgitation. Mitral P1/2 time of 79 m/s is compatible with a mitral valve area of 1.2 cm2 Peak mitral valve diastolic gradient of 19 mmHg and a mean gradient of 6 mmHg Mitral inflow indicates restrictive pattern, implying severely elevated left atrial pressure (Grade III ). Mild tricuspid regurgitation. Tricuspid systolic velocities suggests peak right ventricular systolic pressure of 67 mmHg, consistent with severe pulmonary hypertension.
--- NOTE | 2017-10-12 13:28 | Cardiology Report ---
APPROVED REPORT EXAM: Two-dimensional and M-mode echocardiogram with Doppler and color Doppler. INDICATION ENDOCARDITIS M-Mode DIMENSIONS IVSd1.0 (0.7-1.1cm)Left Atrium (MM)4.8 (1.6-4.0cm) LVDd7.5 (3.5-5.6cm)Aortic Root3.5 (2.0-3.7cm) PWd1.4 (0.7-1.1cm)Aortic Cusp Exc.1.5 (1.5-2.0cm) IVSs1.4 cm LVDs6.2 (2.5-4.0cm) PWs1.5 cm Technically difficult study due to poor acoustical windows. Normal left ventricular chamber size, systolic function and wall motion to extent visualized. Left ventricular ejection fraction estimated to be 55-60 %. Mild left ventricular hypertrophy. No evidence of pericardial effusion. Mild bi-atrial enlargement. Right ventricular chamber sizes are within normal limits. Focal aortic valve sclerosis with adequate cusp excursion. Mitral annulus and aortic root calcification. Pulmonic valve not well visualized. Normal tricuspid valve structure. IVC dilated at 2.5 cm without physiologic collapse, suggestive of increased RA pressure. A color flow and spectral Doppler study was performed and revealed: Trace aortic regurgitation. Trace mitral regurgitation. LV diastolic function can not determine due to arrhythmia. Trace tricuspid regurgitation. Tricuspid systolic velocities suggests peak right ventricular systolic pressure of 17 mmHg
--- NOTE | 2017-10-12 14:24 | Infectious Diseases Prog Note ---
Assessment/Plan Assessment/Plan A 1. lumbar discitis/osteomyelitis 2. leucocytosis 3. hypertension 4. s/p cardiac arrest 5. respiratory failure RESOLVED 6. MRSA, VRE and ESBL colonization 7. Atrial fibrillation P 1. continue iv vancomycin, cefepime 2. will follow up cultures Subjective ROS Limited/Unobtainable: No Constitutional: Reports: no symptoms Respiratory: Reports: no symptoms, other - on BIPAP at night, at home is on CPAP Cardiovascular: Reports: no symptoms Gastrointestinal/Abdominal: Reports: no symptoms Genitourinary: Reports: no symptoms Musculoskeletal: Reports: pain, other - back Allergies: Coded Allergies: PENICILLINS (Verified Allergy, Unknown, 10/04/17) Objective Vital Signs Last 24 Hour Vital Signs Date Time Temp Pulse Resp B/P (MAP) Pulse Ox O2 Delivery O2 Flow Rate FiO2 10/12/17 12:00 102 10/12/17 08:35 111 130/82 10/12/17 06:48 Nasal Cannula 2.0 28 10/12/17 06:48 97 Nasal Cannula 2.0 28 10/12/17 06:48 99 20 Nasal Cannula 2.0 28 10/12/17 04:40 110 17 97 Nasal 30 10/12/17 04:00 25 10/12/17 04:00 97.5 107 17 101/53 100 Nasal Cannula 2.0 97.5 10/12/17 04:00 105 10/12/17 03:08 96 20 97 Nasal 30 10/12/17 00:52 94 21 96 Nasal 30 10/12/17 00:00 97.7 92 22 108/62 98 Nasal Cannula 2.0 97.7 10/12/17 00:00 92 10/12/17 00:00 25 10/11/17 22:56 95 19 97 Nasal 30 10/11/17 21:33 115 124/72 10/11/17 21:06 115 20 95 Nasal 30 10/11/17 21:00 25 10/11/17 20:00 2.0 10/11/17 20:00 101 10/11/17 20:00 97.0 111 24 124/72 98 Nasal Cannula 2.0 97.0 10/11/17 19:03 93 20 Nasal Cannula 2.0 28 10/11/17 19:03 98 Nasal Cannula 2.0 28 10/11/17 19:03 Nasal Cannula 2.0 28 10/11/17 16:00 97.9 94 24 148/50 99 Nasal Cannula 2.0 97.9 10/11/17 16:00 98 Height (Feet): 5 Height (Inches): 9.00 Weight (Pounds): 250 HEENT: mucous membranes moist Respiratory/Chest: normal breath sounds Cardiovascular: tachycardia Abdomen: soft, non tender Extremities: no edema Neurologic/Psychiatric: alert, responsive Laboratory Tests Test 10/12/17 04:10 White Blood Count 14.4 K/UL (4.8-10.8) H Red Blood Count 4.09 M/UL (4.70-6.10) L Hemoglobin 12.8 G/DL (14.2-18.0) L Hematocrit 38.6 % (42.0-52.0) L Mean Corpuscular Volume 94 FL (80-99) Mean Corpuscular Hemoglobin 31.3 PG (27.0-31.0) H Mean Corpuscular Hemoglobin Concent 33.2 G/DL (32.0-36.0) Red Cell Distribution Width 15.3 % (11.6-14.8) H Platelet Count 292 K/UL (150-450) Mean Platelet Volume 7.5 FL (6.5-10.1) Neutrophils (%) (Auto) 82.7 % (45.0-75.0) H Lymphocytes (%) (Auto) 6.6 % (20.0-45.0) L Monocytes (%) (Auto) 7.1 % (1.0-10.0) Eosinophils (%) (Auto) 1.8 % (0.0-3.0) Basophils (%) (Auto) 1.8 % (0.0-2.0) Sodium Level 135 MMOL/L (136-145) L Potassium Level 4.7 MMOL/L (3.5-5.1) Chloride Level 105 MMOL/L (98-107) Carbon Dioxide Level 23 MMOL/L (21-32) Anion Gap 7 mmol/L (5-15) Blood Urea Nitrogen 17 mg/dL (7-18) Creatinine 0.7 MG/DL (0.55-1.30) Estimat Glomerular Filtration Rate mL/min (>60) Glucose Level 98 MG/DL (74-106) Calcium Level 8.4 MG/DL (8.5-10.1) L Magnesium Level 1.6 MG/DL (1.8-2.4) L Total Bilirubin 1.0 MG/DL (0.2-1.0) Aspartate Amino Transf (AST/SGOT) 41 U/L (15-37) H Alanine Aminotransferase (ALT/SGPT) 53 U/L (12-78) Alkaline Phosphatase 193 U/L (46-116) H Pro-B-Type Natriuretic Peptide 2620 pg/mL (0-125) H Total Protein 6.3 G/DL (6.4-8.2) L Albumin 2.0 G/DL (3.4-5.0) L Globulin 4.3 g/dL Albumin/Globulin Ratio 0.5 (1.0-2.7) L Current Medications Medications (Trade) Dose Ordered Sig/Usama Route PRN Reason Start Time Stop Time Status Last Admin Dose Admin Acetaminophen (Tylenol) 650 mg Q4H PRN ORAL Mild Pain/Temp > 100.5 10/09/17 18:30 11/07/17 14:29 10/11/17 03:10 Apixaban (Eliquis) 5 mg BID ORAL 10/10/17 09:00 11/09/17 08:59 10/12/17 08:35 Ascorbic Acid (Vitamin C) 500 mg DAILY ORAL 10/10/17 09:00 11/04/17 08:59 10/12/17 08:36 Aspirin (ASA) 81 mg DAILY ORAL 10/10/17 09:00 11/05/17 08:59 10/12/17 08:35 Atorvastatin Calcium (Lipitor) 20 mg BEDTIME ORAL 10/11/17 21:30 11/10/17 21:29 10/11/17 21:33 Cefepime HCl 2 gm/ Dextrose 110 ml @ 220 mls/hr Q12HR@0000,1200 IV 10/10/17 00:00 10/18/17 11:59 10/12/17 12:30 Dextrose 1,000 ml @ 20 mls/hr Q24H ONCE IV 10/11/17 21:15 10/12/17 21:14 10/11/17 21:35 Dextrose (Dextrose 50%) 25 ml STAT PRN IV Hypoglycemia 10/09/17 18:00 11/08/17 17:59 Dextrose (Dextrose 50%) 50 ml STAT PRN IV Hypoglycemia 10/09/17 18:00 11/08/17 17:59 Insulin Aspart (NovoLOG) Q6HR SUBQ 10/09/17 18:00 11/06/17 17:59 10/12/17 00:15 Metoprolol Tartrate (Lopressor) 50 mg Q8HR ORAL 10/10/17 06:00 11/09/17 05:59 10/12/17 08:35 Ondansetron HCl (Zofran) 4 mg Q6H PRN IVP Nausea & Vomiting 10/09/17 18:00 11/03/17 17:59 Pantoprazole (Protonix) 40 mg DAILY ORAL 10/10/17 09:00 11/08/17 08:59 10/12/17 08:35 Polyethylene Glycol (Miralax) 17 gm DAILY ORAL 10/10/17 09:00 11/04/17 08:59 10/12/17 08:36 Sennosides (Senokot) 1 tab DAILY ORAL 10/10/17 09:00 11/04/17 08:59 10/12/17 08:36 Tamsulosin HCl (Flomax) 0.4 mg BEDTIME ORAL 10/09/17 21:00 11/05/17 20:59 10/11/17 18:12 Vancomycin HCl (Vanco rx to dose) 1 ea DAILY PRN MISC Per rx protocol 10/10/17 09:00 11/03/17 21:44 Vancomycin/Sodium Chloride 250 ml @ 166.667 mls/hr Q12H IVPB 10/10/17 00:00 10/18/17 00:00 10/12/17 12:30 Edin Berger MD Oct 12, 2017 14:24
[2017-10-12 16:00] VITALS: BP 116/59
--- NOTE | 2017-10-12 17:45 | General Progress Note ---
Assessment/Plan Problem List: (1) Discitis of lumbar region ICD Codes: M46.46 - Discitis, unspecified, lumbar region SNOMED: 040117482 (2) Cardiac arrest ICD Codes: I46.9 - Cardiac arrest, cause unspecified SNOMED: 260026158 (3) Atrial fibrillation with RVR ICD Codes: I48.91 - Unspecified atrial fibrillation SNOMED: 711226017489220 (4) Ventricular fibrillation ICD Codes: I49.01 - Ventricular fibrillation SNOMED: 01808044 (5) Respiratory failure requiring intubation ICD Codes: J96.90 - Respiratory failure, unspecified, unspecified whether with hypoxia or hypercapnia SNOMED: 715060112 Status: stable, progressing Assessment/Plan resp care o2 follow up labs iv abx follow up cultures dvt/stress ulcer prophylaxis transfer to [facility] for spine eval and cath currently waiting for bed Subjective ROS Limited/Unobtainable: No Constitutional: Reports: malaise, weakness HEENT: Reports: no symptoms Cardiovascular: Reports: no symptoms Respiratory: Reports: no symptoms Gastrointestinal/Abdominal: Reports: no symptoms Genitourinary: Reports: no symptoms Neurologic/Psychiatric: Reports: no symptoms Endocrine: Reports: no symptoms Hematologic/Lymphatic: Reports: no symptoms Allergies: Coded Allergies: PENICILLINS (Verified Allergy, Unknown, 10/04/17) All Systems: reviewed and negative except above Subjective no new complaints. denies cp/sob. no fever or chills. no headaches. remains on iv abx Objective Last 24 Hour Vital Signs Date Time Temp Pulse Resp B/P (MAP) Pulse Ox O2 Delivery O2 Flow Rate FiO2 10/12/17 16:00 104 10/12/17 14:00 99 98/58 10/12/17 12:00 2.0 10/12/17 12:00 97.8 108 24 94/55 100 Nasal Cannula 2.0 97.8 10/12/17 12:00 102 10/12/17 08:35 111 130/82 10/12/17 08:00 2.0 10/12/17 08:00 97.7 111 15 130/82 100 Nasal Cannula 2.0 97.7 10/12/17 06:48 Nasal Cannula 2.0 28 10/12/17 06:48 97 Nasal Cannula 2.0 28 10/12/17 06:48 99 20 Nasal Cannula 2.0 28 10/12/17 04:40 110 17 97 Nasal 30 10/12/17 04:00 25 10/12/17 04:00 97.5 107 17 101/53 100 Nasal Cannula 2.0 97.5 10/12/17 04:00 105 10/12/17 03:08 96 20 97 Nasal 30 10/12/17 00:52 94 21 96 Nasal 30 10/12/17 00:00 97.7 92 22 108/62 98 Nasal Cannula 2.0 97.7 10/12/17 00:00 92 10/12/17 00:00 25 10/11/17 22:56 95 19 97 Nasal 30 10/11/17 21:33 115 124/72 10/11/17 21:06 115 20 95 Nasal 30 10/11/17 21:00 25 10/11/17 20:00 2.0 10/11/17 20:00 101 10/11/17 20:00 97.0 111 24 124/72 98 Nasal Cannula 2.0 97.0 10/11/17 19:03 93 20 Nasal Cannula 2.0 28 10/11/17 19:03 98 Nasal Cannula 2.0 28 10/11/17 19:03 Nasal Cannula 2.0 28 Intake and Output 10/11/17 10/12/17 19:00 07:00 Intake Total 1293.334 ml 880.000 ml Output Total 1100 ml 150 ml Balance 193.334 ml 730.000 ml Intake Oral 240 ml IV Total 1293.334 ml 640.000 ml Output Urine Total 1100 ml 150 ml # Voids 2 Laboratory Tests 10/12/17 04:10: White Blood Count 14.4H, Red Blood Count 4.09L, Hemoglobin 12.8L, Hematocrit 38.6L, Mean Corpuscular Volume 94, Mean Corpuscular Hemoglobin 31.3H, Mean Corpuscular Hemoglobin Concent 33.2, Red Cell Distribution Width 15.3H, Platelet Count 292, Mean Platelet Volume 7.5, Neutrophils (%) (Auto) 82.7H, Lymphocytes (%) (Auto) 6.6L, Monocytes (%) (Auto) 7.1, Eosinophils (%) (Auto) 1.8, Basophils (%) (Auto) 1.8, Sodium Level 135L, Potassium Level 4.7, Chloride Level 105, Carbon Dioxide Level 23, Anion Gap 7, Blood Urea Nitrogen 17, Creatinine 0.7, Estimat Glomerular Filtration Rate , Glucose Level 98, Calcium Level 8.4L, Magnesium Level 1.6L, Total Bilirubin 1.0, Aspartate Amino Transf ( AST/SGOT) 41H, Alanine Aminotransferase (ALT/SGPT) 53, Alkaline Phosphatase 193H , Pro-B-Type Natriuretic Peptide 2620H, Total Protein 6.3L, Albumin 2.0L, Globulin 4.3, Albumin/Globulin Ratio 0.5L Height (Feet): 5 Height (Inches): 9.00 Weight (Pounds): 250 Objective General Appearance: WD/WN, extubated, a and o x3 Neck: supple Cardiovascular: normal rate, regular rhythm Respiratory/Chest: chest wall non-tender, lungs clear, normal breath sounds, no respiratory distress Abdomen: normal bowel sounds, non tender, soft, no organomegaly Edema: mild edema Neurologic: alert, responsive Jamin Mendoza MD Oct 12, 2017 17:45
[2017-10-12 20:00] VITALS: BP 119/55
[2017-10-12] MEDS: Atorvastatin 20mg tab ORAL SCH (21:06)
[2017-10-12] MEDS: Tamsulosin 0.4mg cap ORAL SCH (21:07)
--- NOTE | 2017-10-12 23:00 | Progress Note ---
DATE: 10/12/2017 CARDIOLOGY PROGRESS NOTE SUBJECTIVE: The patient has no complaints of chest pain or shortness of breath. He remains in bed. OBJECTIVE: VITAL SIGNS: Blood pressure in the 98/56, pulse 99, and respirations 24. Monitored rhythm, atrial fibrillation. LUNGS: Diminished breath sounds. HEART: Irregularly irregular rhythm. Normal S1, S2. ABDOMEN: Obese. EXTREMITIES: With trace dependent edema. LABORATORY DATA: White count 14.4 and hemoglobin 12.8. Potassium 4.7, BUN 17, and creatinine 0.7. Pro-natriuretic peptide 2600. Albumin 2.0. Magnesium 1.6. IMPRESSION: 1. Acute myocardial infarction. 2. Diskitis. 3. Acute on chronic diastolic congestive heart failure. 4. Hypomagnesemia. 5. Severe protein-calorie malnutrition. 6. Paroxysmal atrial fibrillation. PLAN: 1. Continue full anticoagulation. 2. Maximize anti-failure and antianginal regimen. 3. IV magnesium. 4. Continue anti-platelet therapy and statin. 5. Await transfer to tertiary care facility for cardiac catheterization and further spine workup. Brijesh Vela M.D. DR: CHRISTOPHER JOB#: [id number] CC:
[2017-10-13] VITALS: BP 100/49
[2017-10-13] MEDS: Vancomycin 750mg/NS 250ml 250 ML IVPB SCH ×3 (00:07→23:40)
[2017-10-13] MEDS: Cefepime HCl 2 GM in D5W 110 ML IV SCH ×3 (00:07→23:40)
[2017-10-13 04:00] VITALS: BP 100/61
[2017-10-13] MEDS: NovoLOG Insulin Flexpen SUBQ SCH ×5 (06:00→23:45)
--- NOTE | 2017-10-13 07:57 | General Progress Note ---
Assessment/Plan Problem List: (1) Discitis of lumbar region ICD Codes: M46.46 - Discitis, unspecified, lumbar region SNOMED: 927509875 (2) Cardiac arrest ICD Codes: I46.9 - Cardiac arrest, cause unspecified SNOMED: 209347968 (3) Atrial fibrillation with RVR ICD Codes: I48.91 - Unspecified atrial fibrillation SNOMED: 817365017783841 (4) Ventricular fibrillation ICD Codes: I49.01 - Ventricular fibrillation SNOMED: 17022574 (5) Respiratory failure requiring intubation ICD Codes: J96.90 - Respiratory failure, unspecified, unspecified whether with hypoxia or hypercapnia SNOMED: 345850555 Status: stable, progressing Assessment/Plan resp care o2 follow up labs iv abx per ID follow up cultures dvt/stress ulcer prophylaxis transfer to [facility] for spine eval and cath currently waiting for bed Subjective ROS Limited/Unobtainable: No Constitutional: Reports: weakness HEENT: Reports: no symptoms Cardiovascular: Reports: no symptoms Respiratory: Reports: no symptoms Gastrointestinal/Abdominal: Reports: no symptoms Genitourinary: Reports: no symptoms Neurologic/Psychiatric: Reports: no symptoms Endocrine: Reports: no symptoms Hematologic/Lymphatic: Reports: no symptoms Allergies: Coded Allergies: PENICILLINS (Verified Allergy, Unknown, 10/04/17) All Systems: reviewed and negative except above Subjective no new complaints. denies cp/sob. no fever or chills. no headaches. remains on iv abx. no bed at [facility] yet Objective Last 24 Hour Vital Signs Date Time Temp Pulse Resp B/P (MAP) Pulse Ox O2 Delivery O2 Flow Rate FiO2 10/13/17 07:18 98 Nasal Cannula 2.0 28 10/13/17 07:18 79 18 Nasal Cannula 2.0 28 10/13/17 07:18 Nasal Cannula 2.0 28 10/13/17 05:08 91 18 97 Nasal 30 10/13/17 04:00 98.2 103 21 100/61 97 Bi-pap 30 98.2 10/13/17 04:00 30 10/13/17 04:00 110 10/13/17 01:38 101 21 99 Nasal 30 10/13/17 00:00 97.0 84 17 100/49 96 Bi-pap 30 97.0 10/13/17 00:00 30 10/13/17 00:00 110 10/12/17 22:05 107 18 98 Nasal 30 10/12/17 21:09 103 119/55 10/12/17 20:00 97.8 103 22 119/55 96 Nasal Cannula 2.0 97.8 10/12/17 20:00 2.0 10/12/17 20:00 110 10/12/17 19:28 98 Nasal Cannula 2.0 28 10/12/17 19:28 99 18 Nasal Cannula 2.0 28 10/12/17 19:28 Nasal Cannula 2.0 28 10/12/17 16:00 98.3 114 20 116/59 100 Nasal Cannula 2.0 98.3 10/12/17 16:00 104 10/12/17 16:00 2.0 10/12/17 14:00 99 98/58 10/12/17 12:00 2.0 10/12/17 12:00 97.8 108 24 94/55 100 Nasal Cannula 2.0 97.8 10/12/17 12:00 102 10/12/17 08:35 111 130/82 10/12/17 08:00 2.0 10/12/17 08:00 97.7 111 15 130/82 100 Nasal Cannula 2.0 97.7 Intake and Output 10/12/17 10/13/17 19:00 07:00 Intake Total 1080.0000 ml Balance 1080.0000 ml Intake Oral 480 ml IV Total 600.0000 ml # Voids 5 # Bowel Movements 2 Height (Feet): 5 Height (Inches): 9.00 Weight (Pounds): 293 Objective General Appearance: WD/WN, extubated, a and o x3 Neck: supple Cardiovascular: normal rate, regular rhythm Respiratory/Chest: chest wall non-tender, lungs clear, normal breath sounds, no respiratory distress Abdomen: normal bowel sounds, non tender, soft, no organomegaly Edema: mild edema Neurologic: alert, responsive Jamin Mendoza MD Oct 13, 2017 07:57
[2017-10-13 08:00] VITALS: BP 107/57
--- NOTE | 2017-10-13 08:37 | Pulmonology Progress Note ---
Assessment/Plan Assessment/Plan Assessment/Plan Problems: (1) Respiratory failure requiring intubation (2) Ventricular fibrillation (3) Cardiac arrest (4) Renal insufficiency (5) Dyspnea/hypoxemia (6) Discitis of lumbar region (7) Atrial fibrillation with RVR (8) JULISSA (obstructive sleep apnea) Assessment/Plan BiPAP 12/5 QHS and PRN - stable presently monitor pulmonary congestion and oxygen needs Abx per ID Monitor positive fluid balance Aspiration precautions Pain control/supportive care DVT Px: Eliquis awaiting transfer to [facility] for spine evaluation and cath impression, plan, and exam edited and reviewed in detail care discussed with RN Subjective Allergies: Coded Allergies: PENICILLINS (Verified Allergy, Unknown, 10/04/17) Subjective care noted and reviewed findings noted awaiting transfer Objective Last 24 Hour Vital Signs Date Time Temp Pulse Resp B/P (MAP) Pulse Ox O2 Delivery O2 Flow Rate FiO2 10/13/17 07:18 98 Nasal Cannula 2.0 28 10/13/17 07:18 79 18 Nasal Cannula 2.0 28 10/13/17 07:18 Nasal Cannula 2.0 28 10/13/17 05:08 91 18 97 Nasal 30 10/13/17 04:00 98.2 103 21 100/61 97 Bi-pap 30 98.2 10/13/17 04:00 30 10/13/17 04:00 110 10/13/17 01:38 101 21 99 Nasal 30 10/13/17 00:00 97.0 84 17 100/49 96 Bi-pap 30 97.0 10/13/17 00:00 30 10/13/17 00:00 110 10/12/17 22:05 107 18 98 Nasal 30 10/12/17 21:09 103 119/55 10/12/17 20:00 97.8 103 22 119/55 96 Nasal Cannula 2.0 97.8 10/12/17 20:00 2.0 10/12/17 20:00 110 10/12/17 19:28 98 Nasal Cannula 2.0 28 10/12/17 19:28 99 18 Nasal Cannula 2.0 28 10/12/17 19:28 Nasal Cannula 2.0 28 10/12/17 16:00 98.3 114 20 116/59 100 Nasal Cannula 2.0 98.3 10/12/17 16:00 104 10/12/17 16:00 2.0 10/12/17 14:00 99 98/58 10/12/17 12:00 2.0 10/12/17 12:00 97.8 108 24 94/55 100 Nasal Cannula 2.0 97.8 10/12/17 12:00 102 Intake and Output 10/12/17 10/13/17 19:00 07:00 Intake Total 1080.0000 ml Balance 1080.0000 ml Intake Oral 480 ml IV Total 600.0000 ml # Voids 5 # Bowel Movements 2 Objective WDWN NAD reduced breath sounds bilaterally without rhonchi or wheeze [id number] without MRG NABS nontender no HSM no CC mild edema nonfocal Current Medications Medications (Trade) Dose Ordered Sig/Usama Route PRN Reason Start Time Stop Time Status Last Admin Dose Admin Acetaminophen (Tylenol) 650 mg Q4H PRN ORAL Mild Pain/Temp > 100.5 10/09/17 18:30 11/07/17 14:29 10/11/17 03:10 Apixaban (Eliquis) 5 mg BID ORAL 10/10/17 09:00 11/09/17 08:59 10/12/17 17:58 Ascorbic Acid (Vitamin C) 500 mg DAILY ORAL 10/10/17 09:00 11/04/17 08:59 10/12/17 08:36 Aspirin (ASA) 81 mg DAILY ORAL 10/10/17 09:00 11/05/17 08:59 10/12/17 08:35 Atorvastatin Calcium (Lipitor) 20 mg BEDTIME ORAL 10/11/17 21:30 11/10/17 21:29 10/12/17 21:06 Cefepime HCl 2 gm/ Dextrose 110 ml @ 220 mls/hr Q12HR@0000,1200 IV 10/10/17 00:00 10/18/17 11:59 10/13/17 00:07 Dextrose (Dextrose 50%) 25 ml STAT PRN IV Hypoglycemia 10/09/17 18:00 11/08/17 17:59 Dextrose (Dextrose 50%) 50 ml STAT PRN IV Hypoglycemia 10/09/17 18:00 11/08/17 17:59 Insulin Aspart (NovoLOG) Q6HR SUBQ 10/09/17 18:00 11/06/17 17:59 10/12/17 00:15 Metoprolol Tartrate (Lopressor) 100 mg Q12HR ORAL 10/13/17 09:00 11/12/17 08:59 Ondansetron HCl (Zofran) 4 mg Q6H PRN IVP Nausea & Vomiting 10/09/17 18:00 11/03/17 17:59 Pantoprazole (Protonix) 40 mg DAILY ORAL 10/10/17 09:00 11/08/17 08:59 10/12/17 08:35 Polyethylene Glycol (Miralax) 17 gm DAILY ORAL 10/10/17 09:00 11/04/17 08:59 10/12/17 08:36 Sennosides (Senokot) 1 tab DAILY ORAL 10/10/17 09:00 11/04/17 08:59 10/12/17 08:36 Tamsulosin HCl (Flomax) 0.4 mg BEDTIME ORAL 10/09/17 21:00 11/05/17 20:59 10/12/17 21:07 Vancomycin HCl (Vanco rx to dose) 1 ea DAILY PRN MISC Per rx protocol 10/10/17 09:00 11/03/17 21:44 Vancomycin/Sodium Chloride 250 ml @ 166.667 mls/hr Q12H IVPB 10/10/17 00:00 10/18/17 00:00 10/13/17 00:07 Daniel Prince MD Oct 13, 2017 08:37
[2017-10-13] MEDS: Miralax 17gm pkt ORAL SCH (09:00)
[2017-10-13] MEDS: Sennosides 8.6mg ORAL SCH (10:22)
[2017-10-13] MEDS: Eliquis 2.5mg tablet ORAL SCH ×2 (10:22→18:34)
[2017-10-13] MEDS: Aspirin Baby 81mg ORAL SCH (10:22)
[2017-10-13] MEDS: Metoprolol Tartrate 50mg tab ORAL SCH ×2 (10:22→21:00)
[2017-10-13] MEDS: Ascorbic Acid 500mg tab ORAL SCH (10:23)
[2017-10-13 12:00] VITALS: BP 90/42
[2017-10-13] MEDS ORDERED: NS 275ml ONE ×2 (15:59→20:05)
[2017-10-13] MEDS ORDERED: Tubing IV Secondary IV ONE ×2 (15:59→20:05)
[2017-10-13 16:00] VITALS: BP 96/42
[2017-10-13 20:00] VITALS: BP 100/60
[2017-10-13] MEDS ORDERED: 1/2 NS 1000ml IV ONE (20:05)
[2017-10-13] MEDS: Tamsulosin 0.4mg cap ORAL SCH (21:36)
[2017-10-13] MEDS: Atorvastatin 20mg tab ORAL SCH (21:36)
[2017-10-14] VITALS: BP 106/52
--- NOTE | 2017-10-14 03:00 | Progress Note ---
DATE: 10/13/2017 CARDIOLOGY PROGRESS NOTE SUBJECTIVE: The patient still complains of shortness of breath. No chest pain. He remains bedbound. OBJECTIVE: VITAL SIGNS: Blood pressure 100/61, pulse 103, respirations 21, afebrile. LUNGS: Diminished breath sounds. HEART: Irregularly irregular rhythm. Normal S1, S2. ABDOMEN: Soft. EXTREMITIES: Trace edema. LABORATORY DATA: No new laboratories. IMPRESSION: 1. Acute myocardial infarction. 2. Acute on chronic diastolic congestive heart failure. 3. Sacral wound with sepsis. 4. Hypomagnesemia. 5. Paroxysmal atrial fibrillation with increased ventricular response. 6. Diskitis. PLAN: 1. BiPAP at night. 2. Respiratory hygiene. 3. Full anticoagulation for cardioembolic prophylaxis. 4. Magnesium replacement, IV antimicrobials, cautious use of anti-platelet therapy and statin drug as well. 5. Titrate beta-beckie. Add digoxin for better rate control. Brijesh Vela M.D. DR: JUAN JOB#: [id number] CC:
[2017-10-14 04:00] VITALS: BP 100/63
[2017-10-14 06:10] LABS: BASOPHILS % (AUTO) 0.8 % (0.0-2.0); EOSINOPHILS % (AUTO) 2.2 % (0.0-3.0); HEMATOCRIT 38.4 % (42.0-52.0); HEMOGLOBIN 12.4 G/DL (14.2-18.0); LYMPHOCYTES % (AUTO) 5.9 % (20.0-45.0); MEAN CORPUSCULAR VOLUME 95 FL (80-99); NEUTROPHILS % (AUTO) 84.1 % (45.0-75.0); PLATELET COUNT 190 K/UL (150-450); RED BLOOD COUNT 4.06 M/UL (4.70-6.10); RED CELL DISTRIBUTION WIDTH 15.2 % (11.6-14.8); WHITE BLOOD COUNT 15.6 K/UL (4.8-10.8)
[2017-10-14] MEDS: NovoLOG Insulin Flexpen SUBQ SCH ×4 (06:19→23:52)
[2017-10-14 06:44] LABS: ALANINE AMINOTRANSFERASE 51 U/L (12-78); ALBUMIN 1.9 G/DL (3.4-5.0); ALBUMIN/GLOBULIN RATIO 0.4 (1.0-2.7); ALKALINE PHOSPHATASE 188 U/L (46-116); ANION GAP 3 mmol/L (5-15); ASPARTATE AMINO TRANSFERASE 41 U/L (15-37); BILIRUBIN,TOTAL 1.1 MG/DL (0.2-1.0); BLOOD UREA NITROGEN 14 mg/dL (7-18); CALCIUM 8.5 MG/DL (8.5-10.1); CARBON DIOXIDE 30 MMOL/L (21-32); CHLORIDE 103 MMOL/L (98-107); CREATININE 0.7 MG/DL (0.55-1.30); POTASSIUM 4.4 MMOL/L (3.5-5.1); SODIUM 136 MMOL/L (136-145)
[2017-10-14 06:50] LABS: BILIRUBIN,DIRECT 0.2 MG/DL (0.0-0.3)
[2017-10-14 08:00] VITALS: BP 102/53
[2017-10-14] MEDS: Miralax 17gm pkt ORAL SCH (09:41)
[2017-10-14] MEDS: Metoprolol Tartrate 50mg tab ORAL SCH ×2 (09:42→20:31)
[2017-10-14] MEDS: Digoxin 0.125mg tab ORAL SCH (09:43)
[2017-10-14] MEDS: Eliquis 2.5mg tablet ORAL SCH ×2 (09:43→17:51)
[2017-10-14] MEDS: Sennosides 8.6mg ORAL SCH (09:44)
[2017-10-14] MEDS: Aspirin Baby 81mg ORAL SCH (09:44)
[2017-10-14] MEDS: Ascorbic Acid 500mg tab ORAL SCH (09:46)
--- NOTE | 2017-10-14 10:57 | Infectious Diseases Prog Note ---
Assessment/Plan Assessment/Plan antibiotics : vancomycin iv, cefepime A 1. lumbar discitis 2. leucocytosis improving 3. hypertension 4. shock resolved 5. respiratory failure resolved P 1. continue iv vancomycin, cefepime 2. will follow up cultures 3. [facility] transfer pending Subjective Constitutional: Denies: fever, chills Respiratory: Reports: shortness of breath; Denies: dry cough Gastrointestinal/Abdominal: Denies: nausea, vomiting, diarrhea Musculoskeletal: Denies: pain Allergies: Coded Allergies: PENICILLINS (Verified Allergy, Unknown, 10/04/17) Objective Vital Signs Last 24 Hour Vital Signs Date Time Temp Pulse Resp B/P (MAP) Pulse Ox O2 Delivery O2 Flow Rate FiO2 10/14/17 09:43 138 10/14/17 09:42 124 102/53 10/14/17 08:30 98 Nasal Cannula 2.0 28 10/14/17 08:30 Nasal Cannula 2.0 28 10/14/17 08:30 92 18 Nasal Cannula 2.0 10/14/17 08:00 119 10/14/17 08:00 97.6 126 14 102/53 100 2.0 97.6 10/14/17 04:00 140 10/14/17 04:00 30 10/14/17 04:00 98.2 113 19 100/63 100 2.0 98.2 10/14/17 03:17 111 18 98 Nasal 30 10/14/17 02:33 107 10/14/17 01:12 107 23 98 Nasal 30 10/14/17 00:00 30 10/14/17 00:00 125 10/14/17 00:00 97.8 113 18 106/52 100 2.0 97.8 10/13/17 22:14 95 19 98 Nasal 30 10/13/17 21:00 110 100/60 10/13/17 20:00 98.0 110 20 100/60 100 2.0 98.0 10/13/17 20:00 2.0 10/13/17 20:00 107 10/13/17 19:17 Nasal Cannula 2.0 28 10/13/17 19:16 101 18 Nasal Cannula 2.0 28 10/13/17 19:16 98 Nasal Cannula 2.0 28 10/13/17 16:00 2.0 10/13/17 16:00 97.8 101 17 96/42 99 2.0 97.8 10/13/17 16:00 101 10/13/17 14:15 99 18 Nasal Cannula 2.0 28 10/13/17 12:00 100 10/13/17 12:00 2.0 10/13/17 12:00 97.5 93 23 90/42 100 2.0 97.5 Height (Feet): 5 Height (Inches): 9.00 Weight (Pounds): 291 Respiratory/Chest: lungs clear Cardiovascular: normal rate, regular rhythm, no gallop/murmur Abdomen: soft, non tender Extremities: no edema Laboratory Tests Test 10/14/17 04:23 White Blood Count 15.6 K/UL (4.8-10.8) H Red Blood Count 4.06 M/UL (4.70-6.10) L Hemoglobin 12.4 G/DL (14.2-18.0) L Hematocrit 38.4 % (42.0-52.0) L Mean Corpuscular Volume 95 FL (80-99) Mean Corpuscular Hemoglobin 30.5 PG (27.0-31.0) Mean Corpuscular Hemoglobin Concent 32.3 G/DL (32.0-36.0) Red Cell Distribution Width 15.2 % (11.6-14.8) H Platelet Count 190 K/UL (150-450) Mean Platelet Volume 9.6 FL (6.5-10.1) Neutrophils (%) (Auto) 84.1 % (45.0-75.0) H Lymphocytes (%) (Auto) 5.9 % (20.0-45.0) L Monocytes (%) (Auto) 7.0 % (1.0-10.0) Eosinophils (%) (Auto) 2.2 % (0.0-3.0) Basophils (%) (Auto) 0.8 % (0.0-2.0) Sodium Level 136 MMOL/L (136-145) Potassium Level 4.4 MMOL/L (3.5-5.1) Chloride Level 103 MMOL/L (98-107) Carbon Dioxide Level 30 MMOL/L (21-32) Anion Gap 3 mmol/L (5-15) L Blood Urea Nitrogen 14 mg/dL (7-18) Creatinine 0.7 MG/DL (0.55-1.30) Estimat Glomerular Filtration Rate mL/min (>60) Glucose Level 117 MG/DL (74-106) H Calcium Level 8.5 MG/DL (8.5-10.1) Magnesium Level 1.7 MG/DL (1.8-2.4) L Total Bilirubin 1.1 MG/DL (0.2-1.0) H Direct Bilirubin 0.2 MG/DL (0.0-0.3) Aspartate Amino Transf (AST/SGOT) 41 U/L (15-37) H Alanine Aminotransferase (ALT/SGPT) 51 U/L (12-78) Alkaline Phosphatase 188 U/L (46-116) H Pro-B-Type Natriuretic Peptide 2679 pg/mL (0-125) H Total Protein 6.2 G/DL (6.4-8.2) L Albumin 1.9 G/DL (3.4-5.0) L Globulin 4.3 g/dL Albumin/Globulin Ratio 0.4 (1.0-2.7) L Current Medications Medications (Trade) Dose Ordered Sig/Usama Route PRN Reason Start Time Stop Time Status Last Admin Dose Admin Acetaminophen (Tylenol) 650 mg Q4H PRN ORAL Mild Pain/Temp > 100.5 10/09/17 18:30 11/07/17 14:29 10/11/17 03:10 Apixaban (Eliquis) 5 mg BID ORAL 10/10/17 09:00 11/09/17 08:59 10/14/17 09:43 Ascorbic Acid (Vitamin C) 500 mg DAILY ORAL 10/10/17 09:00 11/04/17 08:59 10/14/17 09:46 Aspirin (ASA) 81 mg DAILY ORAL 10/10/17 09:00 11/05/17 08:59 10/14/17 09:44 Atorvastatin Calcium (Lipitor) 20 mg BEDTIME ORAL 10/11/17 21:30 11/10/17 21:29 10/13/17 21:36 Cefepime HCl 2 gm/ Dextrose 110 ml @ 220 mls/hr Q12HR@0000,1200 IV 10/10/17 00:00 10/18/17 11:59 10/13/17 23:40 Dextrose (Dextrose 50%) 25 ml STAT PRN IV Hypoglycemia 10/09/17 18:00 11/08/17 17:59 Dextrose (Dextrose 50%) 50 ml STAT PRN IV Hypoglycemia 10/09/17 18:00 11/08/17 17:59 Digoxin (Lanoxin) 0.125 mg DAILY ORAL 10/14/17 09:00 11/13/17 08:59 10/14/17 09:43 Insulin Aspart (NovoLOG) Q6HR SUBQ 10/09/17 18:00 11/06/17 17:59 10/14/17 06:19 Metoprolol Tartrate (Lopressor) 100 mg Q12HR ORAL 10/13/17 09:00 11/12/17 08:59 10/14/17 09:42 Ondansetron HCl (Zofran) 4 mg Q6H PRN IVP Nausea & Vomiting 10/09/17 18:00 11/03/17 17:59 Pantoprazole (Protonix) 40 mg DAILY ORAL 10/10/17 09:00 11/08/17 08:59 10/14/17 09:41 Polyethylene Glycol (Miralax) 17 gm DAILY ORAL 10/10/17 09:00 11/04/17 08:59 10/14/17 09:41 Sennosides (Senokot) 1 tab DAILY ORAL 10/10/17 09:00 11/04/17 08:59 10/14/17 09:44 Tamsulosin HCl (Flomax) 0.4 mg BEDTIME ORAL 10/09/17 21:00 11/05/17 20:59 10/13/17 21:36 Vancomycin HCl (Vanco rx to dose) 1 ea DAILY PRN MISC Per rx protocol 10/10/17 09:00 11/03/17 21:44 Vancomycin/Sodium Chloride 250 ml @ 166.667 mls/hr Q12H IVPB 10/10/17 00:00 10/18/17 00:00 10/13/17 23:40 AMELIA TREJO Oct 14, 2017 10:57
--- NOTE | 2017-10-14 11:03 | Pulmonology Progress Note ---
Assessment/Plan Assessment/Plan Assessment/Plan Problems: (1) Respiratory failure requiring intubation (2) Ventricular fibrillation (3) Cardiac arrest (4) Renal insufficiency (5) Dyspnea/hypoxemia (6) Discitis of lumbar region (7) Atrial fibrillation with RVR (8) JULISSA (obstructive sleep apnea) Assessment/Plan BiPAP 12/5 QHS and PRN - stable presently monitor pulmonary congestion and oxygen needs Abx per ID Monitor positive fluid balance Aspiration precautions Pain control/supportive care DVT Px: Eliquis awaiting transfer to [facility] for spine evaluation and cath impression, plan, and exam edited and reviewed in detail care discussed with RN Subjective Allergies: Coded Allergies: PENICILLINS (Verified Allergy, Unknown, 10/04/17) Subjective care noted and reviewed findings noted awaiting transfer Objective Last 24 Hour Vital Signs Date Time Temp Pulse Resp B/P (MAP) Pulse Ox O2 Delivery O2 Flow Rate FiO2 10/14/17 09:43 138 10/14/17 09:42 124 102/53 10/14/17 08:30 98 Nasal Cannula 2.0 28 10/14/17 08:30 Nasal Cannula 2.0 28 10/14/17 08:30 92 18 Nasal Cannula 2.0 28 10/14/17 08:00 119 10/14/17 08:00 97.6 126 14 102/53 100 2.0 97.6 10/14/17 04:00 140 10/14/17 04:00 30 10/14/17 04:00 98.2 113 19 100/63 100 2.0 98.2 10/14/17 03:17 111 18 98 Nasal 30 10/14/17 02:33 107 10/14/17 01:12 107 23 98 Nasal 30 10/14/17 00:00 30 10/14/17 00:00 125 10/14/17 00:00 97.8 113 18 106/52 100 2.0 97.8 10/13/17 22:14 95 19 98 Nasal 30 10/13/17 21:00 110 100/60 10/13/17 20:00 98.0 110 20 100/60 100 2.0 98.0 10/13/17 20:00 2.0 10/13/17 20:00 107 10/13/17 19:17 Nasal Cannula 2.0 28 10/13/17 19:16 101 18 Nasal Cannula 2.0 28 10/13/17 19:16 98 Nasal Cannula 2.0 28 10/13/17 16:00 2.0 10/13/17 16:00 97.8 101 17 96/42 99 2.0 97.8 10/13/17 16:00 101 10/13/17 14:15 99 18 Nasal Cannula 2.0 28 10/13/17 12:00 100 10/13/17 12:00 2.0 10/13/17 12:00 97.5 93 23 90/42 100 2.0 97.5 Intake and Output 10/13/17 10/14/17 19:00 07:00 Intake Total 563.334 ml 100 ml Output Total 1100 ml Balance 563.334 ml -1000 ml Intake Oral 120 ml 100 ml IV Total 443.334 ml Output Urine Total 1100 ml # Voids 6 Objective WDWN NAD reduced breath sounds bilaterally without rhonchi or wheeze [id number] without MRG NABS nontender no HSM no CC mild edema nonfocal Laboratory Tests 10/14/17 04:23: White Blood Count 15.6H, Red Blood Count 4.06L, Hemoglobin 12.4L, Hematocrit 38.4L, Mean Corpuscular Volume 95, Mean Corpuscular Hemoglobin 30.5, Mean Corpuscular Hemoglobin Concent 32.3, Red Cell Distribution Width 15.2H, Platelet Count 190, Mean Platelet Volume 9.6, Neutrophils (%) (Auto) 84.1H, Lymphocytes (%) (Auto) 5.9L, Monocytes (%) (Auto) 7.0, Eosinophils (%) (Auto) 2.2, Basophils (%) (Auto) 0.8, Sodium Level 136, Potassium Level 4.4, Chloride Level 103, Carbon Dioxide Level 30, Anion Gap 3L, Blood Urea Nitrogen 14, Creatinine 0.7, Estimat Glomerular Filtration Rate , Glucose Level 117H, Calcium Level 8.5, Magnesium Level 1.7L, Total Bilirubin 1.1H, Direct Bilirubin 0.2, Aspartate Amino Transf (AST/SGOT) 41H, Alanine Aminotransferase (ALT/SGPT) 51, Alkaline Phosphatase 188H, Pro-B-Type Natriuretic Peptide 2679H, Total Protein 6.2L, Albumin 1.9L, Globulin 4.3, Albumin/Globulin Ratio 0.4L Current Medications Medications (Trade) Dose Ordered Sig/Usama Route PRN Reason Start Time Stop Time Status Last Admin Dose Admin Acetaminophen (Tylenol) 650 mg Q4H PRN ORAL Mild Pain/Temp > 100.5 10/09/17 18:30 11/07/17 14:29 10/11/17 03:10 Apixaban (Eliquis) 5 mg BID ORAL 10/10/17 09:00 11/09/17 08:59 10/14/17 09:43 Ascorbic Acid (Vitamin C) 500 mg DAILY ORAL 10/10/17 09:00 11/04/17 08:59 10/14/17 09:46 Aspirin (ASA) 81 mg DAILY ORAL 10/10/17 09:00 11/05/17 08:59 10/14/17 09:44 Atorvastatin Calcium (Lipitor) 20 mg BEDTIME ORAL 10/11/17 21:30 11/10/17 21:29 10/13/17 21:36 Cefepime HCl 2 gm/ Dextrose 110 ml @ 220 mls/hr Q12HR@0000,1200 IV 10/10/17 00:00 10/18/17 11:59 10/13/17 23:40 Dextrose (Dextrose 50%) 25 ml STAT PRN IV Hypoglycemia 10/09/17 18:00 11/08/17 17:59 Dextrose (Dextrose 50%) 50 ml STAT PRN IV Hypoglycemia 10/09/17 18:00 11/08/17 17:59 Digoxin (Lanoxin) 0.125 mg DAILY ORAL 10/14/17 09:00 11/13/17 08:59 10/14/17 09:43 Insulin Aspart (NovoLOG) Q6HR SUBQ 10/09/17 18:00 11/06/17 17:59 10/14/17 06:19 Metoprolol Tartrate (Lopressor) 100 mg Q12HR ORAL 10/13/17 09:00 11/12/17 08:59 10/14/17 09:42 Ondansetron HCl (Zofran) 4 mg Q6H PRN IVP Nausea & Vomiting 10/09/17 18:00 11/03/17 17:59 Pantoprazole (Protonix) 40 mg DAILY ORAL 10/10/17 09:00 11/08/17 08:59 10/14/17 09:41 Polyethylene Glycol (Miralax) 17 gm DAILY ORAL 10/10/17 09:00 11/04/17 08:59 10/14/17 09:41 Sennosides (Senokot) 1 tab DAILY ORAL 10/10/17 09:00 11/04/17 08:59 10/14/17 09:44 Tamsulosin HCl (Flomax) 0.4 mg BEDTIME ORAL 10/09/17 21:00 11/05/17 20:59 10/13/17 21:36 Vancomycin HCl (Vanco rx to dose) 1 ea DAILY PRN MISC Per rx protocol 10/10/17 09:00 11/03/17 21:44 Vancomycin/Sodium Chloride 250 ml @ 166.667 mls/hr Q12H IVPB 10/10/17 00:00 10/18/17 00:00 10/13/17 23:40 Daniel Prince MD Oct 14, 2017 11:02
--- NOTE | 2017-10-14 11:50 | General Progress Note ---
Assessment/Plan Problem List: (1) Discitis of lumbar region ICD Codes: M46.46 - Discitis, unspecified, lumbar region SNOMED: 214767618 (2) Cardiac arrest ICD Codes: I46.9 - Cardiac arrest, cause unspecified SNOMED: 176790596 (3) Atrial fibrillation with RVR ICD Codes: I48.91 - Unspecified atrial fibrillation SNOMED: 589613047510956 (4) Ventricular fibrillation ICD Codes: I49.01 - Ventricular fibrillation SNOMED: 00635394 (5) Respiratory failure requiring intubation ICD Codes: J96.90 - Respiratory failure, unspecified, unspecified whether with hypoxia or hypercapnia SNOMED: 965790034 Status: stable, progressing Assessment/Plan resp care o2 follow up labs iv abx per ID follow up cultures dvt/stress ulcer prophylaxis transfer to [facility] for spine eval and cath currently waiting for bed code status reaffirmed. pt wants to be full code poc reviewed agrees to transfer Subjective ROS Limited/Unobtainable: No Constitutional: Reports: malaise, weakness HEENT: Reports: no symptoms Cardiovascular: Reports: no symptoms Respiratory: Reports: cough Gastrointestinal/Abdominal: Reports: no symptoms Genitourinary: Reports: no symptoms Neurologic/Psychiatric: Reports: no symptoms Endocrine: Reports: no symptoms Hematologic/Lymphatic: Reports: anemia Allergies: Coded Allergies: PENICILLINS (Verified Allergy, Unknown, 10/04/17) All Systems: reviewed and negative except above Subjective no new complaints. denies cp/sob. no fever or chills. no headaches. remains on iv abx. no bed at [facility] yet hr labile. Objective Last 24 Hour Vital Signs Date Time Temp Pulse Resp B/P (MAP) Pulse Ox O2 Delivery O2 Flow Rate FiO2 10/14/17 09:43 138 10/14/17 09:42 124 102/53 10/14/17 08:30 98 Nasal Cannula 2.0 28 10/14/17 08:30 Nasal Cannula 2.0 28 10/14/17 08:30 92 18 Nasal Cannula 2.0 28 10/14/17 08:00 119 10/14/17 08:00 97.6 126 14 102/53 100 2.0 97.6 10/14/17 04:00 140 10/14/17 04:00 30 10/14/17 04:00 98.2 113 19 100/63 100 2.0 98.2 10/14/17 03:17 111 18 98 Nasal 30 10/14/17 02:33 107 10/14/17 01:12 107 23 98 Nasal 30 10/14/17 00:00 30 10/14/17 00:00 125 10/14/17 00:00 97.8 113 18 106/52 100 2.0 97.8 10/13/17 22:14 95 19 98 Nasal 30 10/13/17 21:00 110 100/60 10/13/17 20:00 98.0 110 20 100/60 100 2.0 98.0 10/13/17 20:00 2.0 10/13/17 20:00 107 10/13/17 19:17 Nasal Cannula 2.0 28 10/13/17 19:16 101 18 Nasal Cannula 2.0 28 10/13/17 19:16 98 Nasal Cannula 2.0 28 10/13/17 16:00 2.0 10/13/17 16:00 97.8 101 17 96/42 99 2.0 97.8 10/13/17 16:00 101 10/13/17 14:15 99 18 Nasal Cannula 2.0 28 10/13/17 12:00 100 10/13/17 12:00 2.0 10/13/17 12:00 97.5 93 23 90/42 100 2.0 97.5 Intake and Output 10/13/17 10/14/17 19:00 07:00 Intake Total 563.334 ml 100 ml Output Total 1100 ml Balance 563.334 ml -1000 ml Intake Oral 120 ml 100 ml IV Total 443.334 ml Output Urine Total 1100 ml # Voids 6 Laboratory Tests 10/14/17 04:23: White Blood Count 15.6H, Red Blood Count 4.06L, Hemoglobin 12.4L, Hematocrit 38.4L, Mean Corpuscular Volume 95, Mean Corpuscular Hemoglobin 30.5, Mean Corpuscular Hemoglobin Concent 32.3, Red Cell Distribution Width 15.2H, Platelet Count 190, Mean Platelet Volume 9.6, Neutrophils (%) (Auto) 84.1H, Lymphocytes (%) (Auto) 5.9L, Monocytes (%) (Auto) 7.0, Eosinophils (%) (Auto) 2.2, Basophils (%) (Auto) 0.8, Sodium Level 136, Potassium Level 4.4, Chloride Level 103, Carbon Dioxide Level 30, Anion Gap 3L, Blood Urea Nitrogen 14, Creatinine 0.7, Estimat Glomerular Filtration Rate , Glucose Level 117H, Calcium Level 8.5, Magnesium Level 1.7L, Total Bilirubin 1.1H, Direct Bilirubin 0.2, Aspartate Amino Transf (AST/SGOT) 41H, Alanine Aminotransferase (ALT/SGPT) 51, Alkaline Phosphatase 188H, Pro-B-Type Natriuretic Peptide 2679H, Total Protein 6.2L, Albumin 1.9L, Globulin 4.3, Albumin/Globulin Ratio 0.4L Height (Feet): 5 Height (Inches): 9.00 Weight (Pounds): 291 Objective General Appearance: WD/WN, extubated, a and o x3 Neck: supple Cardiovascular: normal rate, regular rhythm Respiratory/Chest: chest wall non-tender, lungs clear, normal breath sounds, no respiratory distress Abdomen: normal bowel sounds, non tender, soft, no organomegaly Edema: mild edema Neurologic: alert, responsive Jamin Mendoza MD Oct 14, 2017 11:50
[2017-10-14] MEDS: Cefepime HCl 2 GM in D5W 110 ML IV SCH ×2 (11:51→23:52)
[2017-10-14 12:00] VITALS: BP 102/51
[2017-10-14] MEDS: Vancomycin 750mg/NS 250ml 250 ML IVPB SCH (14:32)
[2017-10-14 16:00] VITALS: BP 118/60
[2017-10-14] MEDS ORDERED: Tubing IV Secondary IV ONE (16:38)
[2017-10-14 20:00] VITALS: BP 118/60
[2017-10-14] MEDS: Atorvastatin 20mg tab ORAL SCH (20:31)
[2017-10-14] MEDS: Tamsulosin 0.4mg cap ORAL SCH (20:31)
[2017-10-15] VITALS: BP 100/60
[2017-10-15] MEDS ORDERED: Vancomycin 750mg/NS 250ml 250 ML IVPB SCH (02:30)
[2017-10-15] MEDS: Vancomycin 1gm in D5W 275ml IVPB SCH ×2 (02:50→15:14)
[2017-10-15 04:00] VITALS: BP 117/58
--- NOTE | 2017-10-15 04:00 | Progress Note ---
DATE: 10/14/2017 CARDIOLOGY PROGRESS NOTE SUBJECTIVE: The patient without chest pain and shortness of breath. She still has occasional headaches. She does have some difficulty breathing at night. OBJECTIVE: VITAL SIGNS: Blood pressure 102/53, pulse 124, respiratory rate 18, and afebrile. LUNGS: Diminished breath sounds. Few rhonchi. HEART: Irregularly irregular rhythm. Normal S1, S2. ABDOMEN: Obese and soft. EXTREMITIES: With 1+ edema. LABORATORY DATA: White count 15.6, hemoglobin 12.4. BUN 14, creatinine 0.7, potassium 4.4, magnesium 1.7. Pro-natriuretic peptide 2600. Albumin 1.9. IMPRESSION: 1. Acute myocardial infarction. 2. Acute and chronic diastolic congestive heart failure. 3. Diskitis. 4. Paroxysmal atrial fibrillation. PLAN: 1. Anti-platelet, anticoagulant, and anti-lipid therapy without change. 2. Additional diuresis. 3. Maintain beta-blockade. 4. Digoxin added. 5. Await transfer for coronary angiography. Anjelica Arvizu JOB#: [id number] CC:
[2017-10-15] MEDS: NovoLOG Insulin Flexpen SUBQ SCH ×3 (06:00→17:18)
[2017-10-15 06:52] LABS: BASOPHILS % (AUTO) 0.5 % (0.0-2.0); EOSINOPHILS % (AUTO) 2.1 % (0.0-3.0); HEMATOCRIT 35.1 % (42.0-52.0); HEMOGLOBIN 11.7 G/DL (14.2-18.0); LYMPHOCYTES % (AUTO) 5.6 % (20.0-45.0); MEAN CORPUSCULAR VOLUME 95 FL (80-99); NEUTROPHILS % (AUTO) 83.8 % (45.0-75.0); PLATELET COUNT 172 K/UL (150-450); RED BLOOD COUNT 3.71 M/UL (4.70-6.10); RED CELL DISTRIBUTION WIDTH 15.8 % (11.6-14.8)
[2017-10-15 07:01] LABS: ALANINE AMINOTRANSFERASE 48 U/L (12-78); ALBUMIN 1.8 G/DL (3.4-5.0); ALBUMIN/GLOBULIN RATIO 0.5 (1.0-2.7); ALKALINE PHOSPHATASE 170 U/L (46-116); ANION GAP 4 mmol/L (5-15); ASPARTATE AMINO TRANSFERASE 47 U/L (15-37); BILIRUBIN,TOTAL 0.9 MG/DL (0.2-1.0); BLOOD UREA NITROGEN 12 mg/dL (7-18); CALCIUM 8.2 MG/DL (8.5-10.1); CARBON DIOXIDE 28 MMOL/L (21-32); CHLORIDE 101 MMOL/L (98-107); CREATININE 0.7 MG/DL (0.55-1.30); POTASSIUM 4.3 MMOL/L (3.5-5.1); SODIUM 133 MMOL/L (136-145)
[2017-10-15 08:00] VITALS: BP 122/73
--- NOTE | 2017-10-15 08:28 | Pulmonology Progress Note ---
Assessment/Plan Assessment/Plan Assessment/Plan Problems: (1) Respiratory failure requiring intubation (2) Ventricular fibrillation (3) Cardiac arrest (4) Renal insufficiency (5) Dyspnea/hypoxemia (6) Discitis of lumbar region (7) Atrial fibrillation with RVR (8) JULISSA (obstructive sleep apnea) Assessment/Plan BiPAP 12/5 QHS and PRN - stable presently; no respiratory changes needed monitor pulmonary congestion and oxygen needs Abx per ID Monitor positive fluid balance and keep negative Aspiration precautions as is monitor pulse rate Pain control/supportive care DVT Px: Eliquis awaiting transfer to [facility] for spine evaluation and cath impression, plan, and exam edited and reviewed in detail care discussed with RN Subjective Allergies: Coded Allergies: PENICILLINS (Verified Allergy, Unknown, 10/04/17) Subjective care noted and reviewed findings noted awaiting transfer to [facility] Objective Last 24 Hour Vital Signs Date Time Temp Pulse Resp B/P (MAP) Pulse Ox O2 Delivery O2 Flow Rate FiO2 10/15/17 08:00 2.0 10/15/17 07:46 Nasal Cannula 3.0 32 10/15/17 07:46 100 Nasal Cannula 3.0 32 10/15/17 07:45 111 20 Nasal Cannula 3.0 32 10/15/17 04:41 101 10/15/17 04:00 30 10/15/17 04:00 98.5 113 18 117/58 95 Nasal Cannula 2.0 98.5 10/15/17 00:00 97.8 104 14 100/60 98 Bi-pap 30 97.8 10/14/17 23:50 109 10/14/17 20:31 86 101/61 10/14/17 20:00 30 10/14/17 20:00 97.0 86 18 118/60 97 Bi-pap 30 97.0 10/14/17 20:00 79 10/14/17 19:16 Bi-pap 10/14/17 19:16 98 Bi-pap 10/14/17 19:14 93 18 10/14/17 17:00 2.0 10/14/17 16:00 97.7 83 14 118/60 100 Nasal Cannula 3.0 97.7 10/14/17 16:00 80 10/14/17 12:00 98.2 83 12 102/51 100 Nasal Cannula 3.0 98.2 10/14/17 12:00 2.0 10/14/17 12:00 82 10/14/17 09:43 138 10/14/17 09:42 124 102/53 10/14/17 08:30 98 Nasal Cannula 2.0 28 10/14/17 08:30 Nasal Cannula 2.0 28 10/14/17 08:30 92 18 Nasal Cannula 2.0 28 Intake and Output 10/14/17 10/15/17 19:00 07:00 Intake Total 1760.000 ml 385.0 ml Output Total 200 ml 700 ml Balance 1560.000 ml -315.0 ml Intake Oral 1200 ml IV Total 560.000 ml 385.0 ml Output Urine Total 200 ml 700 ml # Voids 1 Objective WDWN NAD reduced breath sounds bilaterally without rhonchi or wheeze [id number] mildly tachy without MRG NABS nontender no HSM no CC mild edema nonfocal Laboratory Tests 10/15/17 01:23: White Blood Count 16.0H, Red Blood Count 3.71L, Hemoglobin 11.7L, Hematocrit 35.1L, Mean Corpuscular Volume 95, Mean Corpuscular Hemoglobin 31.5H, Mean Corpuscular Hemoglobin Concent 33.3, Red Cell Distribution Width 15.8H, Platelet Count 172, Mean Platelet Volume 9.3, Neutrophils (%) (Auto) 83.8H, Lymphocytes (%) (Auto) 5.6L, Monocytes (%) (Auto) 8.0, Eosinophils (%) (Auto) 2.1, Basophils (%) (Auto) 0.5, Sodium Level 133L, Potassium Level 4.3, Chloride Level 101, Carbon Dioxide Level 28, Anion Gap 4L, Blood Urea Nitrogen 12, Creatinine 0.7, Estimat Glomerular Filtration Rate , Glucose Level 106, Calcium Level 8.2L, Magnesium Level 2.0, Total Bilirubin 0.9, Aspartate Amino Transf ( AST/SGOT) 47H, Alanine Aminotransferase (ALT/SGPT) 48, Alkaline Phosphatase 170H , Pro-B-Type Natriuretic Peptide 3030H, Total Protein 5.7L, Albumin 1.8L, Globulin 3.9, Albumin/Globulin Ratio 0.5L, Vancomycin Level Trough 11.8 Current Medications Medications (Trade) Dose Ordered Sig/Usama Route PRN Reason Start Time Stop Time Status Last Admin Dose Admin Acetaminophen (Tylenol) 650 mg Q4H PRN ORAL Mild Pain/Temp > 100.5 10/09/17 18:30 11/07/17 14:29 10/14/17 22:39 Apixaban (Eliquis) 5 mg BID ORAL 10/10/17 09:00 11/09/17 08:59 10/14/17 17:51 Ascorbic Acid (Vitamin C) 500 mg DAILY ORAL 10/10/17 09:00 11/04/17 08:59 10/14/17 09:46 Aspirin (ASA) 81 mg DAILY ORAL 10/10/17 09:00 11/05/17 08:59 10/14/17 09:44 Atorvastatin Calcium (Lipitor) 20 mg BEDTIME ORAL 10/11/17 21:30 11/10/17 21:29 10/14/17 20:31 Cefepime HCl 2 gm/ Dextrose 110 ml @ 220 mls/hr Q12HR@0000,1200 IV 10/10/17 00:00 10/18/17 11:59 10/14/17 23:52 Dextrose (Dextrose 50%) 25 ml STAT PRN IV Hypoglycemia 10/09/17 18:00 11/08/17 17:59 Dextrose (Dextrose 50%) 50 ml STAT PRN IV Hypoglycemia 10/09/17 18:00 11/08/17 17:59 Digoxin (Lanoxin) 0.125 mg DAILY ORAL 10/14/17 09:00 11/13/17 08:59 10/14/17 09:43 Insulin Aspart (NovoLOG) Q6HR SUBQ 10/09/17 18:00 11/06/17 17:59 10/14/17 18:00 Metoprolol Tartrate (Lopressor) 100 mg Q12HR ORAL 10/13/17 09:00 11/12/17 08:59 10/14/17 09:42 Ondansetron HCl (Zofran) 4 mg Q6H PRN IVP Nausea & Vomiting 10/09/17 18:00 11/03/17 17:59 Pantoprazole (Protonix) 40 mg DAILY ORAL 10/10/17 09:00 11/08/17 08:59 10/14/17 09:41 Polyethylene Glycol (Miralax) 17 gm DAILY ORAL 10/10/17 09:00 11/04/17 08:59 10/14/17 09:41 Sennosides (Senokot) 1 tab DAILY ORAL 10/10/17 09:00 11/04/17 08:59 10/14/17 09:44 Tamsulosin HCl (Flomax) 0.4 mg BEDTIME ORAL 10/09/17 21:00 11/05/17 20:59 10/14/17 20:31 Vancomycin HCl (Vanco rx to dose) 1 ea DAILY PRN MISC Per rx protocol 10/10/17 09:00 11/03/17 21:44 Vancomycin HCl 1 gm/Dextrose 275 ml @ 183.708 mls/hr Q12H IVPB 10/15/17 03:00 10/20/17 02:59 10/15/17 02:50 Daniel Prince MD Oct 15, 2017 08:28
[2017-10-15] MEDS: Aspirin Baby 81mg ORAL SCH (09:02)
[2017-10-15] MEDS: Eliquis 2.5mg tablet ORAL SCH ×2 (09:02→17:17)
[2017-10-15] MEDS: Digoxin 0.125mg tab ORAL SCH (09:02)
[2017-10-15] MEDS: Metoprolol Tartrate 50mg tab ORAL SCH (09:03)
[2017-10-15] MEDS: Ascorbic Acid 500mg tab ORAL SCH (09:04)
[2017-10-15] MEDS: Miralax 17gm pkt ORAL SCH (09:04)
[2017-10-15] MEDS: Sennosides 8.6mg ORAL SCH (09:04)
[2017-10-15] MEDS ORDERED: Tubing IV Secondary IV ONE (09:40)
[2017-10-15] MEDS ORDERED: NS 275ml ONE (09:40)
[2017-10-15] MEDS ORDERED: D5W 275ml ONE (09:40)
--- NOTE | 2017-10-15 10:12 | Infectious Diseases Prog Note ---
Assessment/Plan Assessment/Plan A 1. lumbar discitis/osteomyelitis 2. leucocytosis 3. hypertension 4. s/p cardiac arrest 5. respiratory failure RESOLVED 6. MRSA, VRE and ESBL colonization 7. Atrial fibrillation P 1. continue iv vancomycin, cefepime 2. waiting for transfer to [facility] Subjective ROS Limited/Unobtainable: No Constitutional: Reports: no symptoms Respiratory: Reports: no symptoms Cardiovascular: Reports: no symptoms Gastrointestinal/Abdominal: Reports: no symptoms Genitourinary: Reports: no symptoms Musculoskeletal: Reports: no symptoms Allergies: Coded Allergies: PENICILLINS (Verified Allergy, Unknown, 10/04/17) Objective Vital Signs Last 24 Hour Vital Signs Date Time Temp Pulse Resp B/P (MAP) Pulse Ox O2 Delivery O2 Flow Rate FiO2 10/15/17 09:03 103 122/52 10/15/17 09:02 103 10/15/17 08:00 104 10/15/17 08:00 2.0 10/15/17 08:00 97.2 112 24 122/73 100 Nasal Cannula 2.0 97.2 10/15/17 07:46 Nasal Cannula 3.0 32 10/15/17 07:46 100 Nasal Cannula 3.0 32 10/15/17 07:45 111 20 Nasal Cannula 3.0 32 10/15/17 04:41 101 10/15/17 04:00 30 10/15/17 04:00 98.5 113 18 117/58 95 Nasal Cannula 2.0 98.5 10/15/17 00:00 97.8 104 14 100/60 98 Bi-pap 30 97.8 10/14/17 23:50 109 10/14/17 20:31 86 101/61 10/14/17 20:00 30 10/14/17 20:00 97.0 86 18 118/60 97 Bi-pap 30 97.0 10/14/17 20:00 79 10/14/17 19:16 Bi-pap 10/14/17 19:16 98 Bi-pap 10/14/17 19:14 93 18 10/14/17 17:00 2.0 10/14/17 16:00 97.7 83 14 118/60 100 Nasal Cannula 3.0 97.7 10/14/17 16:00 80 10/14/17 12:00 98.2 83 12 102/51 100 Nasal Cannula 3.0 98.2 10/14/17 12:00 2.0 10/14/17 12:00 82 Height (Feet): 5 Height (Inches): 9.00 Weight (Pounds): 281 General Appearance: no acute distress HEENT: mucous membranes moist Respiratory/Chest: lungs clear Cardiovascular: tachycardia Abdomen: soft, non tender Genitourinary: other - Cline catheter Extremities: no edema Neurologic/Psychiatric: alert, oriented x 3, responsive Laboratory Tests Test 10/15/17 01:23 White Blood Count 16.0 K/UL (4.8-10.8) H Red Blood Count 3.71 M/UL (4.70-6.10) L Hemoglobin 11.7 G/DL (14.2-18.0) L Hematocrit 35.1 % (42.0-52.0) L Mean Corpuscular Volume 95 FL (80-99) Mean Corpuscular Hemoglobin 31.5 PG (27.0-31.0) H Mean Corpuscular Hemoglobin Concent 33.3 G/DL (32.0-36.0) Red Cell Distribution Width 15.8 % (11.6-14.8) H Platelet Count 172 K/UL (150-450) Mean Platelet Volume 9.3 FL (6.5-10.1) Neutrophils (%) (Auto) 83.8 % (45.0-75.0) H Lymphocytes (%) (Auto) 5.6 % (20.0-45.0) L Monocytes (%) (Auto) 8.0 % (1.0-10.0) Eosinophils (%) (Auto) 2.1 % (0.0-3.0) Basophils (%) (Auto) 0.5 % (0.0-2.0) Sodium Level 133 MMOL/L (136-145) L Potassium Level 4.3 MMOL/L (3.5-5.1) Chloride Level 101 MMOL/L (98-107) Carbon Dioxide Level 28 MMOL/L (21-32) Anion Gap 4 mmol/L (5-15) L Blood Urea Nitrogen 12 mg/dL (7-18) Creatinine 0.7 MG/DL (0.55-1.30) Estimat Glomerular Filtration Rate mL/min (>60) Glucose Level 106 MG/DL (74-106) Calcium Level 8.2 MG/DL (8.5-10.1) L Magnesium Level 2.0 MG/DL (1.8-2.4) Total Bilirubin 0.9 MG/DL (0.2-1.0) Aspartate Amino Transf (AST/SGOT) 47 U/L (15-37) H Alanine Aminotransferase (ALT/SGPT) 48 U/L (12-78) Alkaline Phosphatase 170 U/L (46-116) H Pro-B-Type Natriuretic Peptide 3030 pg/mL (0-125) H Total Protein 5.7 G/DL (6.4-8.2) L Albumin 1.8 G/DL (3.4-5.0) L Globulin 3.9 g/dL Albumin/Globulin Ratio 0.5 (1.0-2.7) L Vancomycin Level Trough 11.8 ug/mL (5.0-12.0) Current Medications Medications (Trade) Dose Ordered Sig/Usama Route PRN Reason Start Time Stop Time Status Last Admin Dose Admin Acetaminophen (Tylenol) 650 mg Q4H PRN ORAL Mild Pain/Temp > 100.5 10/09/17 18:30 11/07/17 14:29 10/14/17 22:39 Apixaban (Eliquis) 5 mg BID ORAL 10/10/17 09:00 11/09/17 08:59 10/15/17 09:02 Ascorbic Acid (Vitamin C) 500 mg DAILY ORAL 10/10/17 09:00 11/04/17 08:59 10/15/17 09:04 Aspirin (ASA) 81 mg DAILY ORAL 10/10/17 09:00 11/05/17 08:59 10/15/17 09:02 Atorvastatin Calcium (Lipitor) 20 mg BEDTIME ORAL 10/11/17 21:30 11/10/17 21:29 10/14/17 20:31 Cefepime HCl 2 gm/ Dextrose 110 ml @ 220 mls/hr Q12HR@0000,1200 IV 10/10/17 00:00 10/18/17 11:59 10/14/17 23:52 Dextrose (Dextrose 50%) 25 ml STAT PRN IV Hypoglycemia 10/09/17 18:00 11/08/17 17:59 Dextrose (Dextrose 50%) 50 ml STAT PRN IV Hypoglycemia 10/09/17 18:00 11/08/17 17:59 Digoxin (Lanoxin) 0.125 mg DAILY ORAL 10/14/17 09:00 11/13/17 08:59 10/15/17 09:02 Insulin Aspart (NovoLOG) Q6HR SUBQ 10/09/17 18:00 11/06/17 17:59 10/14/17 18:00 Metoprolol Tartrate (Lopressor) 100 mg Q12HR ORAL 10/13/17 09:00 11/12/17 08:59 10/15/17 09:03 Ondansetron HCl (Zofran) 4 mg Q6H PRN IVP Nausea & Vomiting 10/09/17 18:00 11/03/17 17:59 Pantoprazole (Protonix) 40 mg DAILY ORAL 10/10/17 09:00 11/08/17 08:59 10/15/17 09:02 Polyethylene Glycol (Miralax) 17 gm DAILY ORAL 10/10/17 09:00 11/04/17 08:59 10/15/17 09:04 Sennosides (Senokot) 1 tab DAILY ORAL 10/10/17 09:00 11/04/17 08:59 10/15/17 09:04 Tamsulosin HCl (Flomax) 0.4 mg BEDTIME ORAL 10/09/17 21:00 11/05/17 20:59 10/14/17 20:31 Vancomycin HCl (Vanco rx to dose) 1 ea DAILY PRN MISC Per rx protocol 10/10/17 09:00 11/03/17 21:44 Vancomycin HCl 1 gm/Dextrose 275 ml @ 183.708 mls/hr Q12H IVPB 10/15/17 03:00 10/20/17 02:59 10/15/17 02:50 Edin Berger MD Oct 15, 2017 10:12
[2017-10-15 12:00] VITALS: BP 97/51
[2017-10-15] MEDS: Cefepime HCl 2 GM in D5W 110 ML IV SCH (12:21)
[2017-10-15 16:00] VITALS: BP 137/61
--- NOTE | 2017-10-15 16:57 | General Progress Note ---
Assessment/Plan Problem List: (1) Discitis of lumbar region ICD Codes: M46.46 - Discitis, unspecified, lumbar region SNOMED: 024209785 (2) Cardiac arrest ICD Codes: I46.9 - Cardiac arrest, cause unspecified SNOMED: 197406876 (3) Atrial fibrillation with RVR ICD Codes: I48.91 - Unspecified atrial fibrillation SNOMED: 521249086687818 (4) Ventricular fibrillation ICD Codes: I49.01 - Ventricular fibrillation SNOMED: 72615626 (5) Respiratory failure requiring intubation ICD Codes: J96.90 - Respiratory failure, unspecified, unspecified whether with hypoxia or hypercapnia SNOMED: 996815353 Status: stable, progressing Assessment/Plan resp care o2 follow up labs iv abx per ID follow up cultures dvt/stress ulcer prophylaxis transfer to [facility] for spine eval and cath currently waiting for bed code status reaffirmed. pt wants to be full code poc reviewed agrees to transfer Subjective ROS Limited/Unobtainable: No Constitutional: Reports: weakness HEENT: Reports: no symptoms Cardiovascular: Reports: no symptoms Respiratory: Reports: no symptoms Gastrointestinal/Abdominal: Reports: no symptoms Genitourinary: Reports: no symptoms Neurologic/Psychiatric: Reports: no symptoms Endocrine: Reports: no symptoms Hematologic/Lymphatic: Reports: no symptoms Allergies: Coded Allergies: PENICILLINS (Verified Allergy, Unknown, 10/04/17) All Systems: reviewed and negative except above Subjective no new complaints. denies cp/sob. no fever or chills. no headaches. remains on iv abx. no bed at [facility] yet hr labile. Objective Last 24 Hour Vital Signs Date Time Temp Pulse Resp B/P (MAP) Pulse Ox O2 Delivery O2 Flow Rate FiO2 10/15/17 16:00 2.0 10/15/17 16:00 97.0 100 20 137/61 100 Nasal Cannula 3.0 97.0 10/15/17 12:00 2.0 10/15/17 12:00 94 10/15/17 12:00 97.7 90 20 97/51 99 Nasal Cannula 3.0 97.7 10/15/17 09:03 103 122/52 10/15/17 09:02 103 10/15/17 08:00 104 10/15/17 08:00 2.0 10/15/17 08:00 97.2 112 24 122/73 100 Nasal Cannula 2.0 97.2 10/15/17 07:46 Nasal Cannula 3.0 32 10/15/17 07:46 100 Nasal Cannula 3.0 32 10/15/17 07:45 111 20 Nasal Cannula 3.0 32 10/15/17 04:41 101 10/15/17 04:00 30 10/15/17 04:00 98.5 113 18 117/58 95 Nasal Cannula 2.0 98.5 10/15/17 00:00 97.8 104 14 100/60 98 Bi-pap 30 97.8 10/14/17 23:50 109 10/14/17 20:31 86 101/61 10/14/17 20:00 30 10/14/17 20:00 97.0 86 18 118/60 97 Bi-pap 30 97.0 10/14/17 20:00 79 10/14/17 19:16 Bi-pap 10/14/17 19:16 98 Bi-pap 10/14/17 19:14 93 18 10/14/17 17:00 2.0 Intake and Output 10/14/17 10/15/17 19:00 07:00 Intake Total 1760.000 ml 385.0 ml Output Total 200 ml 700 ml Balance 1560.000 ml -315.0 ml Intake Oral 1200 ml IV Total 560.000 ml 385.0 ml Output Urine Total 200 ml 700 ml # Voids 1 Laboratory Tests 10/15/17 01:23: White Blood Count 16.0H, Red Blood Count 3.71L, Hemoglobin 11.7L, Hematocrit 35.1L, Mean Corpuscular Volume 95, Mean Corpuscular Hemoglobin 31.5H, Mean Corpuscular Hemoglobin Concent 33.3, Red Cell Distribution Width 15.8H, Platelet Count 172, Mean Platelet Volume 9.3, Neutrophils (%) (Auto) 83.8H, Lymphocytes (%) (Auto) 5.6L, Monocytes (%) (Auto) 8.0, Eosinophils (%) (Auto) 2.1, Basophils (%) (Auto) 0.5, Sodium Level 133L, Potassium Level 4.3, Chloride Level 101, Carbon Dioxide Level 28, Anion Gap 4L, Blood Urea Nitrogen 12, Creatinine 0.7, Estimat Glomerular Filtration Rate , Glucose Level 106, Calcium Level 8.2L, Magnesium Level 2.0, Total Bilirubin 0.9, Aspartate Amino Transf ( AST/SGOT) 47H, Alanine Aminotransferase (ALT/SGPT) 48, Alkaline Phosphatase 170H , Pro-B-Type Natriuretic Peptide 3030H, Total Protein 5.7L, Albumin 1.8L, Globulin 3.9, Albumin/Globulin Ratio 0.5L, Vancomycin Level Trough 11.8 Height (Feet): 5 Height (Inches): 9.00 Weight (Pounds): 281 Objective General Appearance: WD/WN, extubated, a and o x3 Neck: supple Cardiovascular: normal rate, regular rhythm Respiratory/Chest: chest wall non-tender, lungs clear, normal breath sounds, no respiratory distress Abdomen: normal bowel sounds, non tender, soft, no organomegaly Edema: mild edema Neurologic: alert, responsive Jamin Mendoza MD Oct 15, 2017 16:57
[2017-10-15 20:00] VITALS: BP 112/69
[2017-10-15] MEDS: Tamsulosin 0.4mg cap ORAL SCH (20:43)
[2017-10-15] MEDS: Atorvastatin 20mg tab ORAL SCH (20:44)
[2017-10-15] MEDS ORDERED: Tamsulosin 0.4mg cap ORAL SCH (21:00)
[2017-10-15] MEDS ORDERED: Atorvastatin 20mg tab ORAL SCH (21:00)
[2017-10-16] VITALS: BP 100/67
[2017-10-16] MEDS ORDERED: Cefepime HCl 2 GM in D5W 110 ML IV SCH ×4
[2017-10-16] MEDS ORDERED: NovoLOG Insulin Flexpen SUBQ SCH
[2017-10-16] MEDS ORDERED: Vancomycin 1 GM in D5W 275 ML IVPB SCH (03:00)
[2017-10-16] MEDS: Vancomycin 1 GM in D5W 275 ML IVPB SCH ×2 (03:00→15:25)
--- NOTE | 2017-10-16 03:15 | Progress Note ---
DATE: 10/15/2017 CARDIOLOGY PROGRESS NOTE SUBJECTIVE: No chest pain. No shortness of breath. Remains with atrial fibrillation and has episodes of rapid ventricular rate. OBJECTIVE: VITAL SIGNS: Blood pressure 137/61, pulse 100, and respirations 20. Afebrile. Oxygen saturation on 2 liters is 100%. LUNGS: Diminished breath sounds. No wheezing or rales. HEART: Irregularly irregular rhythm. Normal S1, S2. ABDOMEN: Soft. EXTREMITIES: Trace dependent edema. LABORATORY DATA: White count 16 and hemoglobin is 11.7. Potassium 4.3. Pro-natriuretic peptide slightly increased to 3000. Albumin 1.8. PLAN: 1. Additional diuresis. 2. Continue beta-beckie and digitalis for rate control. 3. Cardioembolic prophylaxis with apixaban. 4. Await transfer to [facility] for cardiac catheterization when bed available. Brijesh Vela M.D. DR: CHRISTOPHER JOB#: [id number] CC:
[2017-10-16 04:00] VITALS: BP 105/60
[2017-10-16] MEDS: NovoLOG Insulin Flexpen SUBQ SCH ×4 (05:53→18:02)
[2017-10-16 08:00] VITALS: BP 127/68
--- NOTE | 2017-10-16 08:27 | Pulmonology Progress Note ---
Assessment/Plan Assessment/Plan Assessment/Plan Problems: (1) Respiratory failure requiring intubation (2) Ventricular fibrillation (3) Cardiac arrest (4) Renal insufficiency (5) Dyspnea/hypoxemia (6) Discitis of lumbar region (7) Atrial fibrillation with RVR (8) JULISSA (obstructive sleep apnea) Assessment/Plan BiPAP 12/5 QHS and PRN - stable presently; no respiratory changes needed monitor pulmonary congestion and oxygen needs and prescribe Abx per ID Monitor positive fluid balance and keep negative, cards noted Aspiration precautions as is monitor pulse rate Pain control/supportive care DVT Px: Eliquis awaiting transfer to [facility] for spine evaluation and cath close cards follow up impression, plan, and exam edited and reviewed in detail care discussed with RN Subjective Allergies: Coded Allergies: PENICILLINS (Verified Allergy, Unknown, 10/04/17) Subjective care noted and reviewed findings noted awaiting transfer to [facility] on tele Objective Last 24 Hour Vital Signs Date Time Temp Pulse Resp B/P (MAP) Pulse Ox O2 Delivery O2 Flow Rate FiO2 10/16/17 08:00 97.4 93 20 127/68 99 Room Air 97.4 10/16/17 04:00 97.8 68 20 105/60 96 Room Air 97.8 10/16/17 04:00 97 10/16/17 04:00 2.0 10/16/17 00:00 2.0 10/16/17 00:00 104 10/16/17 00:00 99.3 100 18 100/67 97 Room Air 99.3 10/15/17 20:55 Room Air 10/15/17 20:55 97 Room Air 21 10/15/17 20:55 97 20 Room Air 21 10/15/17 20:43 120 112/69 10/15/17 20:00 97.9 120 18 112/69 95 Room Air 97.9 10/15/17 20:00 2.0 10/15/17 20:00 97 10/15/17 16:00 2.0 10/15/17 16:00 97.0 100 20 137/61 100 Nasal Cannula 3.0 97.0 10/15/17 16:00 86 10/15/17 12:00 2.0 10/15/17 12:00 94 10/15/17 12:00 97.7 90 20 97/51 99 Nasal Cannula 3.0 97.7 10/15/17 09:03 103 122/52 10/15/17 09:02 103 Intake and Output 10/15/17 10/16/17 19:00 07:00 Intake Total 885.000 ml Output Total 1900 ml Balance -1015.000 ml Intake Oral 500 ml IV Total 385.000 ml Output Urine Total 1900 ml # Bowel Movements 2 1 Objective WDWN NAD baseline confusion reduced breath sounds bilaterally without rhonchi or wheeze [id number] without MRG NABS nontender no HSM; no distention no CC mild edema nonfocal Current Medications Medications (Trade) Dose Ordered Sig/Usama Route PRN Reason Start Time Stop Time Status Last Admin Dose Admin Acetaminophen (Tylenol) 650 mg Q4H PRN ORAL Mild Pain/Temp > 100.5 10/15/17 18:30 11/07/17 14:29 Apixaban (Eliquis) 5 mg BID ORAL 10/16/17 09:00 11/15/17 08:59 Ascorbic Acid (Vitamin C) 500 mg DAILY ORAL 10/16/17 09:00 11/04/17 08:59 Aspirin (ASA) 81 mg DAILY ORAL 10/16/17 09:00 11/05/17 08:59 Atorvastatin Calcium (Lipitor) 20 mg BEDTIME ORAL 10/15/17 21:00 11/10/17 21:29 10/15/17 20:44 Cefepime HCl 2 gm/ Dextrose 110 ml @ 220 mls/hr Q12HR@0000,1200 IV 10/16/17 00:00 10/18/17 11:59 10/16/17 00:17 Dextrose (Dextrose 50%) 25 ml STAT PRN IV Hypoglycemia 10/16/17 18:00 11/08/17 17:59 Dextrose (Dextrose 50%) 50 ml STAT PRN IV Hypoglycemia 10/16/17 18:00 11/08/17 17:59 Digoxin (Lanoxin) 0.125 mg DAILY ORAL 10/16/17 09:00 11/13/17 08:59 Furosemide (Lasix) 40 mg DAILY IV 10/19/17 19:00 11/18/17 18:59 Insulin Aspart (NovoLOG) Q6HR SUBQ 10/16/17 00:00 11/15/17 00:00 10/16/17 05:53 Metoprolol Tartrate (Lopressor) 100 mg Q12HR ORAL 10/15/17 21:00 11/12/17 08:59 10/15/17 20:43 Ondansetron HCl (Zofran) 4 mg Q6H PRN IVP Nausea & Vomiting 10/15/17 18:30 11/14/17 18:29 Pantoprazole (Protonix) 40 mg DAILY ORAL 10/16/17 09:00 11/08/17 08:59 Polyethylene Glycol (Miralax) 17 gm DAILY ORAL 10/16/17 09:00 11/04/17 08:59 Potassium Chloride (K-Dur) 20 meq DAILY ORAL 10/19/17 19:00 11/18/17 18:59 Sennosides (Senokot) 1 tab DAILY ORAL 10/16/17 09:00 11/04/17 08:59 Tamsulosin HCl (Flomax) 0.4 mg BEDTIME ORAL 10/15/17 21:00 11/05/17 20:59 10/15/17 20:43 Temazepam (Restoril) 15 mg HSPRN PRN ORAL Insomnia 10/15/17 21:00 10/22/17 20:59 10/15/17 20:43 Vancomycin HCl (Vanco rx to dose) 1 ea DAILY PRN MISC Per rx protocol 10/15/17 18:00 11/14/17 17:59 Vancomycin HCl 1 gm/Dextrose 275 ml @ 183.708 mls/hr Q12H IVPB 10/16/17 03:00 10/20/17 02:59 10/16/17 03:00 Daniel Prince MD Oct 16, 2017 08:27
[2017-10-16] MEDS: Digoxin 0.125mg tab ORAL SCH (08:46)
[2017-10-16] MEDS: Aspirin Baby 81mg ORAL SCH (08:46)
[2017-10-16] MEDS: Sennosides 8.6mg ORAL SCH (08:46)
[2017-10-16] MEDS: Miralax 17gm pkt ORAL SCH (08:46)
[2017-10-16] MEDS: Eliquis 2.5mg tablet ORAL SCH ×2 (08:47→18:01)
[2017-10-16] MEDS: Ascorbic Acid 500mg tab ORAL SCH (08:47)
[2017-10-16] MEDS ORDERED: Aspirin Baby 81mg ORAL SCH (09:00)
[2017-10-16] MEDS ORDERED: Digoxin 0.125mg tab ORAL SCH (09:00)
[2017-10-16] MEDS ORDERED: Ascorbic Acid 500mg tab ORAL SCH (09:00)
[2017-10-16] MEDS ORDERED: Eliquis 2.5mg tablet ORAL SCH (09:00)
[2017-10-16] MEDS ORDERED: Miralax 17gm pkt ORAL SCH (09:00)
[2017-10-16] MEDS ORDERED: Sennosides 8.6mg ORAL SCH (09:00)
[2017-10-16] MEDS ORDERED: Tubing IV Secondary IV ONE (10:04)
--- NOTE | 2017-10-16 10:52 | Infectious Diseases Prog Note ---
Assessment/Plan Assessment/Plan antibiotics : vancomycin iv, cefepime A 1. lumbar discitis 2. leucocytosis 3. hypertension 4. shock resolved 5. respiratory failure resolved P 1. continue iv vancomycin, cefepime 2. will follow up cultures 3. [facility] pending Subjective Constitutional: Denies: fever, chills Respiratory: Denies: shortness of breath, dry cough Gastrointestinal/Abdominal: Denies: nausea, vomiting, diarrhea Musculoskeletal: Reports: pain - back Allergies: Coded Allergies: PENICILLINS (Verified Allergy, Unknown, 10/04/17) Objective Vital Signs Last 24 Hour Vital Signs Date Time Temp Pulse Resp B/P (MAP) Pulse Ox O2 Delivery O2 Flow Rate FiO2 10/16/17 08:47 93 127/68 10/16/17 08:46 93 10/16/17 08:00 104 10/16/17 08:00 97.4 93 20 127/68 99 Room Air 97.4 10/16/17 04:00 97.8 68 20 105/60 96 Room Air 97.8 10/16/17 04:00 97 10/16/17 04:00 2.0 10/16/17 00:00 2.0 10/16/17 00:00 104 10/16/17 00:00 99.3 100 18 100/67 97 Room Air 99.3 10/15/17 20:55 Room Air 10/15/17 20:55 97 Room Air 21 10/15/17 20:55 97 20 Room Air 21 10/15/17 20:43 120 112/69 10/15/17 20:00 97.9 120 18 112/69 95 Room Air 97.9 10/15/17 20:00 2.0 10/15/17 20:00 97 10/15/17 16:00 2.0 10/15/17 16:00 97.0 100 20 137/61 100 Nasal Cannula 3.0 97.0 10/15/17 16:00 86 10/15/17 12:00 2.0 10/15/17 12:00 94 10/15/17 12:00 97.7 90 20 97/51 99 Nasal Cannula 3.0 97.7 Height (Feet): 5 Height (Inches): 9.00 Weight (Pounds): 281 Respiratory/Chest: lungs clear Cardiovascular: normal rate, regular rhythm, no gallop/murmur Abdomen: soft, non tender Extremities: no edema Current Medications Medications (Trade) Dose Ordered Sig/Usama Route PRN Reason Start Time Stop Time Status Last Admin Dose Admin Acetaminophen (Tylenol) 650 mg Q4H PRN ORAL Mild Pain/Temp > 100.5 10/15/17 18:30 11/07/17 14:29 Apixaban (Eliquis) 5 mg BID ORAL 10/16/17 09:00 11/15/17 08:59 10/16/17 08:47 Ascorbic Acid (Vitamin C) 500 mg DAILY ORAL 10/16/17 09:00 11/04/17 08:59 10/16/17 08:47 Aspirin (ASA) 81 mg DAILY ORAL 10/16/17 09:00 11/05/17 08:59 10/16/17 08:46 Atorvastatin Calcium (Lipitor) 20 mg BEDTIME ORAL 10/15/17 21:00 11/10/17 21:29 10/15/17 20:44 Cefepime HCl 2 gm/ Dextrose 110 ml @ 220 mls/hr Q12HR@0000,1200 IV 10/16/17 00:00 10/18/17 11:59 10/16/17 00:17 Dextrose (Dextrose 50%) 25 ml STAT PRN IV Hypoglycemia 10/16/17 18:00 11/08/17 17:59 Dextrose (Dextrose 50%) 50 ml STAT PRN IV Hypoglycemia 10/16/17 18:00 11/08/17 17:59 Digoxin (Lanoxin) 0.125 mg DAILY ORAL 10/16/17 09:00 11/13/17 08:59 10/16/17 08:46 Furosemide (Lasix) 40 mg DAILY IV 10/19/17 19:00 11/18/17 18:59 Insulin Aspart (NovoLOG) Q6HR SUBQ 10/16/17 00:00 11/15/17 00:00 10/16/17 05:53 Metoprolol Tartrate (Lopressor) 100 mg Q12HR ORAL 10/15/17 21:00 11/12/17 08:59 10/16/17 08:47 Ondansetron HCl (Zofran) 4 mg Q6H PRN IVP Nausea & Vomiting 10/15/17 18:30 11/14/17 18:29 Pantoprazole (Protonix) 40 mg DAILY ORAL 10/16/17 09:00 11/08/17 08:59 10/16/17 08:46 Polyethylene Glycol (Miralax) 17 gm DAILY ORAL 10/16/17 09:00 11/04/17 08:59 10/16/17 08:46 Potassium Chloride (K-Dur) 20 meq DAILY ORAL 10/19/17 19:00 11/18/17 18:59 Sennosides (Senokot) 1 tab DAILY ORAL 10/16/17 09:00 11/04/17 08:59 10/16/17 08:46 Tamsulosin HCl (Flomax) 0.4 mg BEDTIME ORAL 10/15/17 21:00 11/05/17 20:59 10/15/17 20:43 Temazepam (Restoril) 15 mg HSPRN PRN ORAL Insomnia 10/15/17 21:00 10/22/17 20:59 10/15/17 20:43 Vancomycin HCl (Vanco rx to dose) 1 ea DAILY PRN MISC Per rx protocol 10/15/17 18:00 11/14/17 17:59 Vancomycin HCl 1 gm/Dextrose 275 ml @ 183.708 mls/hr Q12H IVPB 10/16/17 03:00 10/20/17 02:59 10/16/17 03:00 AMELIA TREJO Oct 16, 2017 10:52
[2017-10-16] MEDS: Cefepime HCl 2 GM in D5W 110 ML IV SCH (11:46)
[2017-10-16 12:00] VITALS: BP 108/50
--- NOTE | 2017-10-16 15:15 | Progress Note ---
DATE: 10/16/2017 CARDIOLOGY PROGRESS NOTE SUBJECTIVE: The patient use BiPAP on some evenings. During the night, he is less short of breath. OBJECTIVE: VITAL SIGNS: Blood pressure 127/68, heart rate 92, respiratory rate 20. Monitor atrial fibrillation. LUNGS: Diminished breath sounds. No wheezing. HEART: Irregularly irregular rhythm. Normal S1, S2. ABDOMEN: Soft. EXTREMITIES: Trace dependent edema. IMPRESSION: 1. Acute WA. 2. Acute on chronic diastolic congestive heart failure. 3. Paroxysmal atrial fibrillation with improving rate control. 4. Diskitis. PLAN: Continue anti-failure, anti-platelet, and anti-lipid drugs. Diuresis added for several days and then reassess clinical parameters. Await transfer for cardiac catheterization. Brijesh Vela M.D. DR: NENA JOB#: [id number] CC:
[2017-10-16 16:00] VITALS: BP 119/55
--- NOTE | 2017-10-16 16:45 | General Progress Note ---
Assessment/Plan Problem List: (1) Discitis of lumbar region ICD Codes: M46.46 - Discitis, unspecified, lumbar region SNOMED: 417793878 (2) Cardiac arrest ICD Codes: I46.9 - Cardiac arrest, cause unspecified SNOMED: 607370315 (3) Atrial fibrillation with RVR ICD Codes: I48.91 - Unspecified atrial fibrillation SNOMED: 175774115218265 (4) Ventricular fibrillation ICD Codes: I49.01 - Ventricular fibrillation SNOMED: 37066380 (5) Respiratory failure requiring intubation ICD Codes: J96.90 - Respiratory failure, unspecified, unspecified whether with hypoxia or hypercapnia SNOMED: 952888675 Status: stable, progressing Assessment/Plan resp care o2 follow up labs iv abx per ID follow up cultures dvt/stress ulcer prophylaxis transfer to [facility] for spine eval and cath currently waiting for bed code status reaffirmed. pt wants to be full code poc reviewed agrees to transfer possible bed this weekend per transfer center Subjective ROS Limited/Unobtainable: No Constitutional: Reports: malaise, weakness HEENT: Reports: no symptoms Cardiovascular: Reports: no symptoms Respiratory: Reports: cough Gastrointestinal/Abdominal: Reports: no symptoms Genitourinary: Reports: no symptoms Neurologic/Psychiatric: Reports: no symptoms Endocrine: Reports: no symptoms Hematologic/Lymphatic: Reports: no symptoms Allergies: Coded Allergies: PENICILLINS (Verified Allergy, Unknown, 10/04/17) All Systems: reviewed and negative except above Subjective no new complaints. denies cp/sob. no fever or chills. no headaches. remains on iv abx. no bed at [facility] yet. d/w transfer center. pt accepted. hr labile. Objective Last 24 Hour Vital Signs Date Time Temp Pulse Resp B/P (MAP) Pulse Ox O2 Delivery O2 Flow Rate FiO2 10/16/17 12:00 97.5 99 20 108/50 (69) 99 97.5 10/16/17 12:00 88 10/16/17 08:47 93 127/68 10/16/17 08:46 93 10/16/17 08:00 104 10/16/17 08:00 97.4 93 20 127/68 99 Room Air 97.4 10/16/17 04:00 97.8 68 20 105/60 96 Room Air 97.8 10/16/17 04:00 97 10/16/17 04:00 2.0 10/16/17 00:00 2.0 10/16/17 00:00 104 10/16/17 00:00 99.3 100 18 100/67 97 Room Air 99.3 10/15/17 20:55 Room Air 10/15/17 20:55 97 Room Air 21 10/15/17 20:55 97 20 Room Air 21 10/15/17 20:43 120 112/69 10/15/17 20:00 97.9 120 18 112/69 95 Room Air 97.9 10/15/17 20:00 2.0 10/15/17 20:00 97 Intake and Output 10/15/17 10/16/17 19:00 07:00 Intake Total 885.000 ml Output Total 1900 ml Balance -1015.000 ml Intake Oral 500 ml IV Total 385.000 ml Output Urine Total 1900 ml # Bowel Movements 2 1 Height (Feet): 5 Height (Inches): 9.00 Weight (Pounds): 252 Objective General Appearance: WD/WN, extubated, a and o x3 Neck: supple Cardiovascular: normal rate, regular rhythm Respiratory/Chest: chest wall non-tender, lungs clear, normal breath sounds, no respiratory distress Abdomen: normal bowel sounds, non tender, soft, no organomegaly Edema: mild edema Neurologic: alert, responsive Jamin Mendoza MD Oct 16, 2017 16:45
[2017-10-16 20:00] VITALS: BP 113/67
[2017-10-16] MEDS: Atorvastatin 20mg tab ORAL SCH (20:54)
[2017-10-16] MEDS: Tamsulosin 0.4mg cap ORAL SCH (20:54)
[2017-10-17] VITALS: BP 101/59
[2017-10-17] MEDS: Cefepime HCl 2 GM in D5W 110 ML IV SCH ×2 (00:19→12:38)
[2017-10-17] MEDS: NovoLOG Insulin Flexpen SUBQ SCH ×4 (00:19→18:33)
[2017-10-17] MEDS: Vancomycin 1 GM in D5W 275 ML IVPB SCH ×2 (02:21→15:47)
[2017-10-17 04:00] VITALS: BP 125/60
[2017-10-17 08:00] VITALS: BP 120/72
[2017-10-17] MEDS: Miralax 17gm pkt ORAL SCH (09:25)
[2017-10-17] MEDS: Sennosides 8.6mg ORAL SCH (09:26)
[2017-10-17] MEDS: Eliquis 2.5mg tablet ORAL SCH ×2 (09:26→18:44)
[2017-10-17] MEDS: Digoxin 0.125mg tab ORAL SCH (09:26)
[2017-10-17] MEDS: Ascorbic Acid 500mg tab ORAL SCH (09:27)
[2017-10-17] MEDS: Aspirin Baby 81mg ORAL SCH (09:27)
--- NOTE | 2017-10-17 11:08 | Pulmonology Progress Note ---
Assessment/Plan Assessment/Plan Assessment/Plan Problems: (1) Respiratory failure requiring intubation (2) Ventricular fibrillation (3) Cardiac arrest (4) Renal insufficiency (5) Dyspnea/hypoxemia (6) Discitis of lumbar region (7) Atrial fibrillation with RVR (8) JULISSA (obstructive sleep apnea) Assessment/Plan BiPAP 12/5 QHS and PRN - stable presently; no respiratory changes needed monitor pulmonary congestion and oxygen needs and prescribe Abx per ID Monitor positive fluid balance and keep negative, cards noted Aspiration precautions as is monitor pulse rate Pain control/supportive care DVT Px: Eliquis awaiting transfer to [facility] for spine evaluation and cath close cards follow up impression, plan, and exam edited and reviewed in detail care discussed with RN Subjective Allergies: Coded Allergies: PENICILLINS (Verified Allergy, Unknown, 10/04/17) Subjective care noted and reviewed awaiting transfer to [facility] on tele Objective Last 24 Hour Vital Signs Date Time Temp Pulse Resp B/P (MAP) Pulse Ox O2 Delivery O2 Flow Rate FiO2 10/17/17 09:26 91 120/72 10/17/17 09:26 91 10/17/17 08:00 97.7 91 20 120/72 (88) 95 97.7 10/17/17 04:00 87 10/17/17 04:00 97.2 77 19 125/60 (81) 96 97.2 10/17/17 00:00 97.3 89 20 101/59 (73) 95 97.3 10/17/17 00:00 86 10/16/17 21:00 Room Air 10/16/17 20:54 88 113/67 10/16/17 20:00 85 10/16/17 20:00 98.4 88 21 113/67 (82) 95 98.4 10/16/17 16:00 95 10/16/17 16:00 97.8 91 20 119/55 (76) 94 97.8 10/16/17 12:00 97.5 99 20 108/50 (69) 99 97.5 10/16/17 12:00 88 Intake and Output 10/16/17 10/17/17 19:00 07:00 Intake Total 925.000 ml Balance 925.000 ml Intake Oral 540 ml IV Total 385.000 ml # Voids 2 # Bowel Movements 2 Objective WDWN NAD baseline confusion reduced breath sounds bilaterally without rhonchi or wheeze [id number] without MRG NABS nontender no HSM; no distention no CC mild edema nonfocal Current Medications Medications (Trade) Dose Ordered Sig/Usama Route PRN Reason Start Time Stop Time Status Last Admin Dose Admin Acetaminophen (Tylenol) 650 mg Q4H PRN ORAL Mild Pain/Temp > 100.5 10/15/17 18:30 11/07/17 14:29 Apixaban (Eliquis) 5 mg BID ORAL 10/16/17 09:00 11/15/17 08:59 10/17/17 09:26 Ascorbic Acid (Vitamin C) 500 mg DAILY ORAL 10/16/17 09:00 11/04/17 08:59 10/17/17 09:27 Aspirin (ASA) 81 mg DAILY ORAL 10/16/17 09:00 11/05/17 08:59 10/17/17 09:27 Atorvastatin Calcium (Lipitor) 20 mg BEDTIME ORAL 10/15/17 21:00 11/10/17 21:29 10/16/17 20:54 Cefepime HCl 2 gm/ Dextrose 110 ml @ 220 mls/hr Q12HR@0000,1200 IV 10/16/17 12:00 10/18/17 23:59 10/17/17 00:19 Dextrose (Dextrose 50%) 25 ml STAT PRN IV Hypoglycemia 10/16/17 18:00 11/08/17 17:59 Dextrose (Dextrose 50%) 50 ml STAT PRN IV Hypoglycemia 10/16/17 18:00 11/08/17 17:59 Digoxin (Lanoxin) 0.125 mg DAILY ORAL 10/16/17 09:00 11/13/17 08:59 10/17/17 09:26 Furosemide (Lasix) 40 mg DAILY IV 10/19/17 19:00 11/18/17 18:59 Insulin Aspart (NovoLOG) Q6HR SUBQ 10/16/17 00:00 11/15/17 00:00 10/17/17 05:35 Metoprolol Tartrate (Lopressor) 100 mg Q12HR ORAL 10/15/17 21:00 11/12/17 08:59 10/17/17 09:26 Ondansetron HCl (Zofran) 4 mg Q6H PRN IVP Nausea & Vomiting 10/15/17 18:30 11/14/17 18:29 Pantoprazole (Protonix) 40 mg DAILY ORAL 10/16/17 09:00 11/08/17 08:59 10/17/17 09:27 Polyethylene Glycol (Miralax) 17 gm DAILY ORAL 10/16/17 09:00 11/04/17 08:59 10/17/17 09:25 Potassium Chloride (K-Dur) 20 meq DAILY ORAL 10/19/17 19:00 11/18/17 18:59 Sennosides (Senokot) 1 tab DAILY ORAL 10/16/17 09:00 11/04/17 08:59 10/17/17 09:26 Tamsulosin HCl (Flomax) 0.4 mg BEDTIME ORAL 10/15/17 21:00 11/05/17 20:59 10/16/17 20:54 Temazepam (Restoril) 15 mg HSPRN PRN ORAL Insomnia 10/15/17 21:00 10/22/17 20:59 10/16/17 20:54 Vancomycin HCl (Vanco rx to dose) 1 ea DAILY PRN MISC Per rx protocol 10/15/17 18:00 11/14/17 17:59 Vancomycin HCl 1 gm/Dextrose 275 ml @ 183.708 mls/hr Q12H IVPB 10/16/17 03:00 10/20/17 02:59 10/17/17 02:21 Daniel Prince MD Oct 17, 2017 11:08
--- NOTE | 2017-10-17 11:21 | General Progress Note ---
Assessment/Plan Problem List: (1) Discitis of lumbar region ICD Codes: M46.46 - Discitis, unspecified, lumbar region SNOMED: 303447937 (2) Cardiac arrest ICD Codes: I46.9 - Cardiac arrest, cause unspecified SNOMED: 425938271 (3) Atrial fibrillation with RVR ICD Codes: I48.91 - Unspecified atrial fibrillation SNOMED: 911511331068028 (4) Ventricular fibrillation ICD Codes: I49.01 - Ventricular fibrillation SNOMED: 26673983 (5) Respiratory failure requiring intubation ICD Codes: J96.90 - Respiratory failure, unspecified, unspecified whether with hypoxia or hypercapnia SNOMED: 939704661 Assessment/Plan resp care o2 follow up labs iv abx per ID follow up cultures dvt/stress ulcer prophylaxis transfer to [facility] for spine eval and cath currently waiting for bed code status reaffirmed. pt wants to be full code poc reviewed agrees to transfer possible bed this weekend per transfer center Subjective ROS Limited/Unobtainable: No Constitutional: Reports: malaise, weakness HEENT: Reports: no symptoms Cardiovascular: Reports: no symptoms Respiratory: Reports: no symptoms Gastrointestinal/Abdominal: Reports: no symptoms Genitourinary: Reports: no symptoms Neurologic/Psychiatric: Reports: no symptoms Endocrine: Reports: no symptoms Hematologic/Lymphatic: Reports: no symptoms Allergies: Coded Allergies: PENICILLINS (Verified Allergy, Unknown, 10/04/17) All Systems: reviewed and negative except above Subjective no new complaints. denies cp/sob. no fever or chills. no headaches. remains on iv abx. no bed at [facility] yet. d/w transfer center. pt accepted. hr labile. Objective Last 24 Hour Vital Signs Date Time Temp Pulse Resp B/P (MAP) Pulse Ox O2 Delivery O2 Flow Rate FiO2 10/17/17 09:26 91 120/72 10/17/17 09:26 91 10/17/17 09:00 Room Air 10/17/17 08:00 97.7 91 20 120/72 (88) 95 97.7 10/17/17 08:00 92 10/17/17 04:00 87 10/17/17 04:00 97.2 77 19 125/60 (81) 96 97.2 10/17/17 00:00 97.3 89 20 101/59 (73) 95 97.3 10/17/17 00:00 86 10/16/17 21:00 Room Air 10/16/17 20:54 88 113/67 10/16/17 20:00 85 10/16/17 20:00 98.4 88 21 113/67 (82) 95 98.4 10/16/17 16:00 95 10/16/17 16:00 97.8 91 20 119/55 (76) 94 97.8 10/16/17 12:00 97.5 99 20 108/50 (69) 99 97.5 10/16/17 12:00 88 Intake and Output 10/16/17 10/17/17 19:00 07:00 Intake Total 925.000 ml Balance 925.000 ml Intake Oral 540 ml IV Total 385.000 ml # Voids 2 # Bowel Movements 2 Height (Feet): 5 Height (Inches): 9.00 Weight (Pounds): 260 Objective General Appearance: WD/WN, extubated, a and o x3 Neck: supple Cardiovascular: normal rate, regular rhythm Respiratory/Chest: chest wall non-tender, lungs clear, normal breath sounds, no respiratory distress Abdomen: normal bowel sounds, non tender, soft, no organomegaly Edema: mild edema Neurologic: alert, responsive Jamin Mendoza MD Oct 17, 2017 11:21
[2017-10-17 12:00] VITALS: BP 103/51
[2017-10-17] MEDS ORDERED: guaiFENesin 100mg/5ml Liq ud ORAL PRN (14:15)
[2017-10-17 16:00] VITALS: BP 103/66
[2017-10-17 20:00] VITALS: BP 115/51
[2017-10-17] MEDS: Tamsulosin 0.4mg cap ORAL SCH (20:58)
[2017-10-17] MEDS: Atorvastatin 20mg tab ORAL SCH (20:58)
[2017-10-18] VITALS: BP 100/60
[2017-10-18] MEDS: Cefepime HCl 2 GM in D5W 110 ML IV SCH ×3 (00:21→23:34)
[2017-10-18] MEDS: guaiFENesin 100mg/5ml Liq ud ORAL PRN ×2 (00:21→13:35)
[2017-10-18] MEDS: Vancomycin 1 GM in D5W 275 ML IVPB SCH ×2 (03:06→16:19)
[2017-10-18 04:00] VITALS: BP 110/72
[2017-10-18] MEDS: NovoLOG Insulin Flexpen SUBQ SCH ×5 (06:00→23:40)
[2017-10-18 08:00] VITALS: BP 130/72
[2017-10-18] MEDS: Digoxin 0.125mg tab ORAL SCH (09:17)
[2017-10-18] MEDS: Aspirin Baby 81mg ORAL SCH (09:17)
[2017-10-18] MEDS: Sennosides 8.6mg ORAL SCH (09:17)
[2017-10-18] MEDS: Eliquis 2.5mg tablet ORAL SCH ×2 (09:18→17:34)
[2017-10-18] MEDS: Ascorbic Acid 500mg tab ORAL SCH (09:18)
[2017-10-18] MEDS: Miralax 17gm pkt ORAL SCH (09:21)
--- NOTE | 2017-10-18 10:05 | General Progress Note ---
Assessment/Plan Problem List: (1) Discitis of lumbar region ICD Codes: M46.46 - Discitis, unspecified, lumbar region SNOMED: 013571290 (2) Cardiac arrest ICD Codes: I46.9 - Cardiac arrest, cause unspecified SNOMED: 846052619 (3) Atrial fibrillation with RVR ICD Codes: I48.91 - Unspecified atrial fibrillation SNOMED: 134613907912636 (4) Ventricular fibrillation ICD Codes: I49.01 - Ventricular fibrillation SNOMED: 84955293 (5) Respiratory failure requiring intubation ICD Codes: J96.90 - Respiratory failure, unspecified, unspecified whether with hypoxia or hypercapnia SNOMED: 485405340 Status: stable, progressing Assessment/Plan resp care o2 follow up labs iv abx per ID follow up cultures dvt/stress ulcer prophylaxis transfer to [facility] for spine eval and cath currently waiting for bed code status reaffirmed. pt wants to be full code poc reviewed agrees to transfer possible bed this weekend per transfer center Subjective ROS Limited/Unobtainable: No Constitutional: Reports: malaise, weakness HEENT: Reports: no symptoms Cardiovascular: Reports: no symptoms Respiratory: Reports: cough Gastrointestinal/Abdominal: Reports: no symptoms Genitourinary: Reports: no symptoms Neurologic/Psychiatric: Reports: pre-existing deficit Endocrine: Reports: no symptoms Hematologic/Lymphatic: Reports: no symptoms Allergies: Coded Allergies: PENICILLINS (Verified Allergy, Unknown, 10/04/17) All Systems: reviewed and negative except above Subjective no new complaints. slept better last night. denies cp/sob. no fever or chills. no headaches. remains on iv abx. no bed at [facility] yet. d/w transfer center. pt accepted. hr labile. Objective Last 24 Hour Vital Signs Date Time Temp Pulse Resp B/P (MAP) Pulse Ox O2 Delivery O2 Flow Rate FiO2 10/18/17 09:18 99 130/72 10/18/17 09:17 99 10/18/17 08:00 96.9 99 20 130/72 (91) 97 96.9 10/18/17 04:00 97.7 20 110/72 (85) 96 97.7 10/18/17 04:00 101 10/18/17 00:00 98.6 66 20 100/60 (73) 93 98.6 10/18/17 00:00 83 10/17/17 21:00 Room Air 10/17/17 20:58 76 118/61 10/17/17 20:00 97.9 78 20 115/51 (72) 99 97.9 10/17/17 20:00 84 10/17/17 16:00 90 10/17/17 16:00 97.7 104 23 103/66 (78) 99 97.7 10/17/17 12:00 98.6 91 22 103/51 (68) 96 98.6 10/17/17 12:00 91 Intake and Output 10/17/17 10/18/17 19:00 07:00 Intake Total 480 ml 385 ml Balance 480 ml 385 ml Intake Oral 480 ml IV Total 385 ml # Voids 5 # Bowel Movements 1 Laboratory Tests 10/17/17 14:10: Vancomycin Level Trough 14.2H Height (Feet): 5 Height (Inches): 9.00 Weight (Pounds): 278 Objective General Appearance: WD/WN, extubated, a and o x3 Neck: supple Cardiovascular: normal rate, regular rhythm Respiratory/Chest: chest wall non-tender, lungs clear, normal breath sounds, no respiratory distress Abdomen: normal bowel sounds, non tender, soft, no organomegaly Edema: mild edema Neurologic: alert, responsive Jamin Mendoza MD Oct 18, 2017 10:05
--- NOTE | 2017-10-18 10:53 | Pulmonology Progress Note ---
Assessment/Plan Assessment/Plan Assessment/Plan Problems: (1) Respiratory failure requiring intubation (2) Ventricular fibrillation (3) Cardiac arrest (4) Renal insufficiency (5) Dyspnea/hypoxemia (6) Discitis of lumbar region (7) Atrial fibrillation with RVR (8) JULISSA (obstructive sleep apnea) Assessment/Plan BiPAP 12/5 QHS and PRN - same Abx per ID Monitor positive fluid balance and keep negative, cards noted Aspiration precautions as is DVT Px: Eliquis awaiting transfer to [facility] for spine evaluation and cath close monitoring as is impression, plan, and exam edited and reviewed in detail care discussed with RN Subjective Allergies: Coded Allergies: PENICILLINS (Verified Allergy, Unknown, 10/04/17) Subjective care noted and reviewed awaiting transfer to [facility] on tele findings noted Objective Last 24 Hour Vital Signs Date Time Temp Pulse Resp B/P (MAP) Pulse Ox O2 Delivery O2 Flow Rate FiO2 10/18/17 09:18 99 130/72 10/18/17 09:17 99 10/18/17 08:00 96.9 99 20 130/72 (91) 97 96.9 10/18/17 04:00 97.7 20 110/72 (85) 96 97.7 10/18/17 04:00 101 10/18/17 00:00 98.6 66 20 100/60 (73) 93 98.6 10/18/17 00:00 83 10/17/17 21:00 Room Air 10/17/17 20:58 76 118/61 10/17/17 20:00 97.9 78 20 115/51 (72) 99 97.9 10/17/17 20:00 84 10/17/17 16:00 90 10/17/17 16:00 97.7 104 23 103/66 (78) 99 97.7 10/17/17 12:00 98.6 91 22 103/51 (68) 96 98.6 10/17/17 12:00 91 Intake and Output 10/17/17 10/18/17 19:00 07:00 Intake Total 480 ml 385 ml Balance 480 ml 385 ml Intake Oral 480 ml IV Total 385 ml # Voids 5 # Bowel Movements 1 Objective WDWN NAD baseline confusion reduced breath sounds bilaterally without rhonchi or wheeze [id number] without MRG NABS nontender no HSM; no distention no CC mild edema nonfocal Laboratory Tests 7/7/18 14:10: Vancomycin Level Trough 14.2H Current Medications Medications (Trade) Dose Ordered Sig/Usama Route PRN Reason Start Time Stop Time Status Last Admin Dose Admin Acetaminophen (Tylenol) 650 mg Q4H PRN ORAL Mild Pain/Temp > 100.5 10/15/17 18:30 11/07/17 14:29 Apixaban (Eliquis) 5 mg BID ORAL 10/16/17 09:00 11/15/17 08:59 10/18/17 09:18 Ascorbic Acid (Vitamin C) 500 mg DAILY ORAL 10/16/17 09:00 11/04/17 08:59 10/18/17 09:18 Aspirin (ASA) 81 mg DAILY ORAL 10/16/17 09:00 11/05/17 08:59 10/18/17 09:17 Atorvastatin Calcium (Lipitor) 20 mg BEDTIME ORAL 10/15/17 21:00 11/10/17 21:29 10/17/17 20:58 Cefepime HCl 2 gm/ Dextrose 110 ml @ 220 mls/hr Q12HR@0000,1200 IV 10/16/17 12:00 10/18/17 23:59 10/18/17 00:21 Dextrose (Dextrose 50%) 25 ml STAT PRN IV Hypoglycemia 10/16/17 18:00 11/08/17 17:59 Dextrose (Dextrose 50%) 50 ml STAT PRN IV Hypoglycemia 10/16/17 18:00 11/08/17 17:59 Digoxin (Lanoxin) 0.125 mg DAILY ORAL 10/16/17 09:00 11/13/17 08:59 10/18/17 09:17 Furosemide (Lasix) 40 mg DAILY IV 10/19/17 19:00 11/18/17 18:59 Guaifenesin (Robitussin) 200 mg Q4H PRN ORAL For Cough 10/17/17 16:00 11/16/17 15:59 10/18/17 00:21 Insulin Aspart (NovoLOG) Q6HR SUBQ 10/16/17 00:00 11/15/17 00:00 10/17/17 18:33 Metoprolol Tartrate (Lopressor) 100 mg Q12HR ORAL 10/15/17 21:00 11/12/17 08:59 10/18/17 09:18 Ondansetron HCl (Zofran) 4 mg Q6H PRN IVP Nausea & Vomiting 10/15/17 18:30 11/14/17 18:29 Pantoprazole (Protonix) 40 mg DAILY ORAL 10/16/17 09:00 11/08/17 08:59 10/18/17 09:17 Polyethylene Glycol (Miralax) 17 gm DAILY ORAL 10/16/17 09:00 11/04/17 08:59 10/18/17 09:21 Potassium Chloride (K-Dur) 20 meq DAILY ORAL 10/19/17 19:00 11/18/17 18:59 Sennosides (Senokot) 1 tab DAILY ORAL 10/16/17 09:00 11/04/17 08:59 10/18/17 09:17 Tamsulosin HCl (Flomax) 0.4 mg BEDTIME ORAL 10/15/17 21:00 11/05/17 20:59 10/17/17 20:58 Temazepam (Restoril) 15 mg HSPRN PRN ORAL Insomnia 10/15/17 21:00 10/22/17 20:59 10/17/17 20:58 Vancomycin HCl (Vanco rx to dose) 1 ea DAILY PRN MISC Per rx protocol 10/15/17 18:00 11/14/17 17:59 Vancomycin HCl 1 gm/Dextrose 275 ml @ 183.708 mls/hr Q12H IVPB 10/16/17 03:00 10/20/17 02:59 10/18/17 03:06 Daniel Prince MD Oct 18, 2017 10:53
[2017-10-18 12:00] VITALS: BP 112/54
--- NOTE | 2017-10-18 12:02 | Infectious Diseases Prog Note ---
Assessment/Plan Assessment/Plan A 1. lumbar discitis/osteomyelitis 2. leucocytosis 3. hypertension 4. s/p cardiac arrest 5. respiratory failure RESOLVED 6. MRSA, VRE and ESBL colonization 7. Atrial fibrillation P 1. continue iv vancomycin, cefepime 2. waiting for transfer to [facility] Subjective ROS Limited/Unobtainable: No Constitutional: Reports: no symptoms Respiratory: Reports: dry cough Gastrointestinal/Abdominal: Reports: no symptoms Genitourinary: Reports: no symptoms Musculoskeletal: Reports: no symptoms Allergies: Coded Allergies: PENICILLINS (Verified Allergy, Unknown, 10/04/17) Objective Vital Signs Last 24 Hour Vital Signs Date Time Temp Pulse Resp B/P (MAP) Pulse Ox O2 Delivery O2 Flow Rate FiO2 10/18/17 09:18 99 130/72 10/18/17 09:17 99 10/18/17 08:00 96.9 99 20 130/72 (91) 97 96.9 10/18/17 04:00 97.7 20 110/72 (85) 96 97.7 10/18/17 04:00 101 10/18/17 00:00 98.6 66 20 100/60 (73) 93 98.6 10/18/17 00:00 83 10/17/17 21:00 Room Air 10/17/17 20:58 76 118/61 10/17/17 20:00 97.9 78 20 115/51 (72) 99 97.9 10/17/17 20:00 84 10/17/17 16:00 90 10/17/17 16:00 97.7 104 23 103/66 (78) 99 97.7 Height (Feet): 5 Height (Inches): 9.00 Weight (Pounds): 278 General Appearance: other - obese Respiratory/Chest: lungs clear Cardiovascular: normal rate Abdomen: soft, non tender Extremities: no edema Neurologic/Psychiatric: alert, oriented x 3, responsive Laboratory Tests Test 10/17/17 14:10 Vancomycin Level Trough 14.2 ug/mL (5.0-12.0) H Current Medications Medications (Trade) Dose Ordered Sig/Usama Route PRN Reason Start Time Stop Time Status Last Admin Dose Admin Acetaminophen (Tylenol) 650 mg Q4H PRN ORAL Mild Pain/Temp > 100.5 10/15/17 18:30 11/07/17 14:29 Apixaban (Eliquis) 5 mg BID ORAL 10/16/17 09:00 11/15/17 08:59 10/18/17 09:18 Ascorbic Acid (Vitamin C) 500 mg DAILY ORAL 10/16/17 09:00 11/04/17 08:59 10/18/17 09:18 Aspirin (ASA) 81 mg DAILY ORAL 10/16/17 09:00 11/05/17 08:59 10/18/17 09:17 Atorvastatin Calcium (Lipitor) 20 mg BEDTIME ORAL 10/15/17 21:00 11/10/17 21:29 10/17/17 20:58 Cefepime HCl 2 gm/ Dextrose 110 ml @ 220 mls/hr Q12HR@0000,1200 IV 10/16/17 12:00 10/18/17 23:59 10/18/17 00:21 Dextrose (Dextrose 50%) 25 ml STAT PRN IV Hypoglycemia 10/16/17 18:00 11/08/17 17:59 Dextrose (Dextrose 50%) 50 ml STAT PRN IV Hypoglycemia 10/16/17 18:00 11/08/17 17:59 Digoxin (Lanoxin) 0.125 mg DAILY ORAL 10/16/17 09:00 11/13/17 08:59 10/18/17 09:17 Furosemide (Lasix) 40 mg DAILY IV 10/19/17 19:00 11/18/17 18:59 Guaifenesin (Robitussin) 200 mg Q4H PRN ORAL For Cough 10/17/17 16:00 11/16/17 15:59 10/18/17 00:21 Insulin Aspart (NovoLOG) Q6HR SUBQ 10/16/17 00:00 11/15/17 00:00 10/17/17 18:33 Metoprolol Tartrate (Lopressor) 100 mg Q12HR ORAL 10/15/17 21:00 11/12/17 08:59 10/18/17 09:18 Ondansetron HCl (Zofran) 4 mg Q6H PRN IVP Nausea & Vomiting 10/15/17 18:30 11/14/17 18:29 Pantoprazole (Protonix) 40 mg DAILY ORAL 10/16/17 09:00 11/08/17 08:59 10/18/17 09:17 Polyethylene Glycol (Miralax) 17 gm DAILY ORAL 10/16/17 09:00 11/04/17 08:59 10/18/17 09:21 Potassium Chloride (K-Dur) 20 meq DAILY ORAL 10/19/17 19:00 11/18/17 18:59 Sennosides (Senokot) 1 tab DAILY ORAL 10/16/17 09:00 11/04/17 08:59 10/18/17 09:17 Tamsulosin HCl (Flomax) 0.4 mg BEDTIME ORAL 10/15/17 21:00 11/05/17 20:59 10/17/17 20:58 Temazepam (Restoril) 15 mg HSPRN PRN ORAL Insomnia 10/15/17 21:00 10/22/17 20:59 10/17/17 20:58 Vancomycin HCl (Vanco rx to dose) 1 ea DAILY PRN MISC Per rx protocol 10/15/17 18:00 11/14/17 17:59 Vancomycin HCl 1 gm/Dextrose 275 ml @ 183.708 mls/hr Q12H IVPB 10/16/17 03:00 10/20/17 02:59 10/18/17 03:06 Edin Berger MD Oct 18, 2017 12:02
[2017-10-18 16:00] VITALS: BP 102/57
[2017-10-18 20:00] VITALS: BP 112/62
[2017-10-18] MEDS: Tamsulosin 0.4mg cap ORAL SCH (20:36)
[2017-10-18] MEDS: Atorvastatin 20mg tab ORAL SCH (20:37)
[2017-10-19] VITALS: BP 106/58
--- NOTE | 2017-10-21 11:55 | Discharge Summary ---
Discharge Summary Hospital Course Date of Admission Oct 04, 2017 at 19:30 Date of Discharge Oct 19, 2017 at 00:30 Admitting Diagnosis afib, sob HPI Sarita Mena is a 77 year old male who was admitted on Oct 04, 2017 at 19:30 for Atrial Fibrillation, Shortness Of Breath Hospital Course dc summary #[id number] Discharge Discharge Disposition Patient was discharged to Acute Care Facility(02) Discharge Instructions Discharge Instructions Special Instructions I have been assigned to complete a D/C Summary on this account. I was not involved in the patient management Madhavi Burgos TARGET DEVELOPER Oct 21, 2017 11:55
--- NOTE | 2017-10-22 00:15 | Discharge Summary 2 SIG ---
DATE OF ADMISSION: 10/04/2017 DATE OF DISCHARGE: 10/19/2017 REASON FOR ADMISSION: 77-year-old male with past medical history of morbid obesity, paroxysmal atrial fibrillation, hypertension, and bioprosthetic aortic valve replacement, presented from the [facility] facility for evaluation due to shortness of breath. Upon evaluation in the emergency department, the patient was found to be in atrial fibrillation with rapid ventricular response. After several doses of IV metoprolol, heart rate improved. Laboratory workup was significant for leukocytosis, WBC 15.7. Urinalysis revealed no evidence of infection. Chest x-ray showed left base atelectasis and possible small pleural effusion. No obvious source of infection initially. The patient denied fever, chills, dysuria, or diarrhea. The patient complained of intractable low back pain. Potassium was 5.3. BUN 52 and creatinine 1.4. Troponin was negative. ProBNP 2586. ADMITTING DIAGNOSES: 1. Atrial fibrillation with rapid ventricular response. 2. Leukocytosis of unclear etiology. 3. Severe intractable back pain. 4. History of hypertension. 5. Bioprosthetic aortic valve replacement history. CONSULTANTS: 1. Antonia Chaidez M.D., Infectious Disease specialist. 2. Brijesh Vela M.D., Winemaker. 3. Daniel Prince M.D., Preservationist. HOSPITAL COURSE: The patient was admitted. Cardiology and ID consults were requested. The patient was started on diuresis. Cardiorenal parameters and volumes were closely monitored. Rate was controlled initially with intravenous beta-beckie. The patient was on quality assurance monitor body. Anticoagulation with Xarelto for cardioembolic prophylaxis started. Venous duplex of bilateral lower extremity was negative. The patient was started on empiric antibiotics under Infectious Disease doctor recommendation. Echocardiogram revealed ejection fraction of 55% to 60% and right ventricular systolic pressure of 17. No evidence of vegetation noted. CT of the thoracic spine revealed no acute thoracic spine abnormality. CT of L-spine revealed destructive changes of L2 and L3. 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 Old multilevel degenerative changes noted as well. Subsequently, MRI of the lumbar spine was done as recommended by Radiology, which showed irregular fluid collection occupying essentially entire of L2-L3 disc, extending into the adjacent endplates with some adjacent sclerosis, edema of the L2-L3 vertebral body, and marked enhancement. Findings were compatible with diskitis and osteomyelitis and concordant with findings reported on the CT of the lumbar spine. Antibiotics were optimized as per Infectious Disease doctor recommendations. Blood cultures were negative. On 10/06/2017, the patient sustained cardiopulmonary arrest. He was found unresponsive and had no pulse. CPR initiated. ACLS protocol initiated. The patient initially had no pulse, then after receiving 1 dose of epinephrine went to VFib. The patient was defibrillated and responded with pulse in sinus rhythm. However, shortly after he lost his pulse again, CPR was continued. The patient received another dose of epinephrine, went to VFib again, was defibrillated again with return of pulses. Bolus of amiodarone was given. Central line was placed for amiodarone drip prior to initiation of drip. The patient was intubated and transferred to intensive care unit. Cardiac arrest was likely secondary to ventricular fibrillation. Laboratory workup revealed elevated troponin. That morning, troponin was 1.947. Pulmonology consult was requested for management of ventilator. Troponin were closely monitored. Next troponin on 10/07/2017 was 8.297. Afterwards, troponin started to trend down. The patient had acute myocardial infarction, but at that time, was unstable for transfer. The patient was started on anticoagulation with Lovenox q.12 hours. Diuresis was continued. Ventilator support provided. Pulmonary toilet provided. The patient was followed up with daily chest x-ray and ABG. The patient was able to be extubated on 10/08/2017. Initially was on BiPAP, but was able to be weaned off BiPAP as his clinical condition improved. Echocardiogram was repeated after extubation on 10/08/2016 and revealed ejection fraction of 55%. Normal left ventricular chamber size, systolic function, and wall motion. Mild left ventricular hypertrophy. Evidence of severely elevated left atrial pressure grade 3 and right ventricular systolic pressure of 67 consistent with severe pulmonary hypertension. Winemaker closely followed. Lipid panel was stable. Troponin was trending down. The patient was placed on waiting list to [facility] for ischemia evaluation with cardiac catheterization when stable for transfer. Anti-failure and anti-lipid medication regimen were continued. Volumes and cardiorenal parameters were closely monitored. The patient continued to be on antibiotics. Leukocytosis persisted, but no fever. Prior to transfer, WBC 16.9. Renal parameters stabilized prior to transfer: BUN 12 and creatinine 0.7. Blood pressure was managed with current medication regimen and remained stable. Full anticoagulation was continued. No evidence of bleeding. Stable hemoglobin and hematocrit. Initially when intubated, the patient was on nutritional support provided via NG-tube . Bedside swallow evaluation was completed. The patient had moderate aspiration risk. Strict aspiration were maintained. The patient was on treatment with speech therapist. Diet provided as per speech therapist recommendations with strict aspiration and reflux precautions with dietary supplements as per grain and yeast plants supervisor's recommendations. The patient had a sacral pressure ulcer present on admission. Wound care provided as per wound care protocol. Place was secured at [facility], and the patient was transferred via ACLS ambulance for ischemia workup with cardiac catheterization. FINAL DIAGNOSES: 1. Lumbar diskitis/osteomyelitis. 2. Acute myocardial infarction. 3. s/p cardiac arrest 10/06 ( likely due to acute ND) 4. Respiratory failure requiring intubation on 10/06/2017 (due to cardiac arrest ), status post extubation on 10/08/2017. 5. Ventricular fibrillation 5. Acute on chronic diastolic congestive heart failure. 6. Paroxysmal atrial fibrillation with rapid ventricular response. 7. Valvular heart disease with history of bioprosthetic aortic valve replacement. 8. Ischemic heart disease. 9. Obstructive sleep apnea. 10. Severe pulmonary hypertension. 11. Hypertension. 12. Acute kidney injury. 13. Severe protein-calorie malnutrition. DISCHARGE MEDICATIONS: List of medication was sent to accepting facility. DISCHARGE INSTRUCTIONS: The patient was transferred via ACLS ambulance to [facility] for cardiac catheterization and further management. Jamin Mendoza M.D. I have been assigned to dictate discharge summary on this account and I was not involved in the patient's management. Madhavi Burgos (vanchtein) N.PIan DR: JOLYNN JOB#: [id number] CC: FAITH
== END 2017-10-19 00:30 | disposition short-term general hospital (02) | DRG 280 ==
LOC: EDBD 18:10 → EDBEDREQ 18:32 → EMR 18:43 → 2E 19:30 → EDBEDREQ 20:52 → ICU 10-06 05:10 → 2W 10-09 16:30 → 2E 10-15 17:58
DX: I48.0 Paroxysmal atrial fibrillation (principal); I50.33 Acute on chronic diastolic (congestive) heart failure; I21.9 Acute myocardial infarction, unspecified; J96.90 Respiratory failure, unspecified, unspecified whether with hypoxia or hypercapnia; I13.0 Hypertensive heart and chronic kidney disease with heart failure and stage 1 through stage 4 chronic kidney disease, or unspecified chronic kidney disease; N39.0 Urinary tract infection, site not specified; N17.9 Acute kidney failure, unspecified; M46.26 Osteomyelitis of vertebra, lumbar region; J98.11 Atelectasis; N18.9 Chronic kidney disease, unspecified; I46.2 Cardiac arrest due to underlying cardiac condition; I49.01 Ventricular fibrillation; Z98.84 Bariatric surgery status; M46.46 Discitis, unspecified, lumbar region; Z95.2 Presence of prosthetic heart valve; D72.829 Elevated white blood cell count, unspecified; Z22.322 Carrier or suspected carrier of Methicillin resistant Staphylococcus aureus; G47.33 Obstructive sleep apnea (adult) (pediatric)
CPT/HCPCS: 36415; 36600; 71045; 72128; 72131; 72158; 74018; 80048; 80053; 80061; 80202; 81003; 82248; 82550; 82553; 82803; 82962; 83735; 83880; 84484; 84550; 85007; 85025; 87040; 87070; 87081; 87181; 87205; 92950; 93005; 93306; 93970; 94002; 94003; 94660; 94664; 94760; 99291; A9585; J1815; J2405